=== PATIENT | female | born 1950 | race Caucasian/White ===

== ENCOUNTER → 2017-07-27 | Day surgery (SDC) | payer OTHER ==
--- NOTE | 2017-07-28 14:47 | PATH ---
Surgical Pathology Report Patient Name: KJ CABRERA [facility]. Rec. #: [id number] /Age/Gender: 1950 (Age: 67) / F Account: [id number] Location: [facility]OLOGY [facility] Taken: 07/27/2017 Received: 07/27/2017 Reported: 07/28/2017 Physicians: Tonia Montero M.D. Dyan Sosa M.D. Specimen(s) Received LEFT BREAST 6:00 US-GUIDED CORE BIOPSY Clinical History Palpable mass left breast 6:00 Ultrasound findings: Highly suspicious/malignant Final Diagnosis Breast, left, 6:00, US-guided core biopsy: Invasive ductal carcinoma, moderately differentiated, measuring at least 7 mm in greatest dimension in this material. Results of ER and FL studies performed at [facility] are as follows: ER (clone [id number] mouse monoclonal antibody by [employer]): 100 % nuclear staining with strong intensity (Positive). FL (clone16 mouse monoclonal antibody by [employer]): ~5 % nuclear staining with moderate intensity (Positive). Results of Her2 and Ki67 studies will be reported separately in an addendum. Positive and negative controls (internal if applicable) show appropriate results. Formalin fixation and cold ischemic times are within current ASCO/CAP recommendations for ER, FL and Her2 testing. Electronically Signed Maria Ines De La Cruz M.D. Addendum Reported: 07/30/2017 Addendum Diagnosis Results of Her2 (IHC) & Ki-67 studies performed at [place], [place] ([id number]) are as follows: Her2 IHC (EP3 from [employer], formerly known as [id number], using Chiang Polymer Refine detection kit): 0 (Negative). Ki-67: ~10% (Low proliferative index). Positive and negative controls (internal if applicable) show appropriate results. Maria Ines De La Cruz M.D. Gross Description Received in formalin, labeled "left breast," are 5 anna-yellow, cylindrical portions of fibroadipose tissue ranging from 0.3-0.8 cm. in length and averaging 0.1 cm. in diameter. The specimen is submitted in toto in one cassette. Time to formalin fixation: < 1 minute Total formalin fixation time: Approximately 9 hours. /07/27/2017/2017
== END | disposition home or self-care (01) ==
LOC: JRADUS-SUR 07:51
PROVIDERS: ATTEND Obstetrics & Gynecology
PROC: 0HBU3ZX Excision of Left Breast, Percutaneous Approach, Diagnostic (ICD-10-PCS; principal; 2017-07-27)
DX: C50.912 Malignant neoplasm of unspecified site of left female breast (principal)
CPT/HCPCS: 19083; 87899; 88305-TC; 88342-TC; A4648; G0206-TC

== ENCOUNTER 2017-09-07 12:38 | Day surgery (SDC) | payer OTHER ==
[2017-08-31 09:40] VITALS: BMI 22.1
--- NOTE | 2017-09-01 10:49 | HP ---
Admitting History and Physical - Primary Care Physician PCP: Jeimy Barrow - Admission Chief Complaint: Left breast cancer History of Present Illness: 67 year old postmenapausal female who felt a left breast mass 07/2017. She also reported 13 pound weight loss during pastv6 mos. 06/2017 mammogram showed 1.2 cm mass left breast 6:00 which was confirmed by US. left breast US core bx at 6:00 06/2017 showed invasive ductal carcinoma . Breast MRI 07/2017 showed right breast negative and left breast newly diagnosed breast cancer 1.8 cm at 5: 00. History Source: Patient Limitations to Obtaining History: No Limitations - Past Medical History Cardiovascular: Yes: HTN, Hyperlipdemia Endocrine: Yes: Hyperthyroidism - Smoking History Smoking history: Former smoker Have you smoked in the past 12 months: No Aproximately how many cigarettes per day: 0 If you are a former smoker, when did you quit?: 1985 - Alcohol/Substance Use Hx Alcohol Use: No Home Medications - Allergies Allergies/Adverse Reactions: Allergies Allergy/AdvReac Type Severity Reaction Status Date / Time Sulfa (Sulfonamide Allergy Swelling Verified 03/11/15 13:23 Antibiotics) - Home Medications Home Medications: Ambulatory Orders Levothyroxine [Synthroid -] 75 mcg PO DAILY #0 tablet 08/23/13 Metoprolol Succinate [Toprol XL -] 50 mg PO DAILY #0 tab.sr.24h 08/23/13 Lisinopril [Prinivil] 10 mg PO DAILY 05/22/15 Aspirin [Aspirin EC] 81 mg PO DAILY 05/23/15 Lansoprazole [Prevacid -] 15 mg PO DAILY 05/23/15 Simvastatin [Zocor -] 10 mg PO HS 05/23/15 Family Disease History - Family Disease History Family Disease History: CA: Mother (breast 42 ), Brother (prostate ca 58 living) Other Family History: pat cousin CRC 40 Physical Examination Constitutional: Yes: Well Nourished Breast(s): Yes: Other (Right breast negative left breast palpable 1.5 cm irregular firm mass at 6:00 imfrmamary fold no palpable adenopathy bilaterally) Problem List - Problems (1) Breast cancer, left breast Code(s): C50.912 - MALIGNANT NEOPLASM OF UNSPECIFIED SITE OF LEFT FEMALE BREAST Qualifiers: Breast location: overlapping sites of breast Patient sex: female Assessment/Plan left breast wide excision , lymphoscintogram, sentenel node biopsy possible axillary node dissection, reconstruction with Dr Mckenna
[2017-09-07] MEDS ORDERED: ISOSULFAN BLUE 10 MG/ML VIAL SQ ONE (14:41)
[2017-09-07] MEDS ORDERED: MIDAZOLAM HCL 2 MG/2 ML SINGLE DOSE VIAL ONE (14:41)
[2017-09-07] MEDS ORDERED: LIDOCAINE HCL 1%, 10 MG/ML (20ML VIAL) ONE (14:42)
[2017-09-07] MEDS ORDERED: fentaNYL CITRATE 250 MCG/5 ML VIAL ONE (14:42)
[2017-09-07] MEDS ORDERED: BUPIVACAINE HCL/PF 2.5 MG/ML - 30 ML VIAL IJ ONE (14:42)
[2017-09-07] MEDS ORDERED: SODIUM CHLORIDE 0.9% P/F 10 ML VIAL IJ ONE (14:53)
[2017-09-07] MEDS ORDERED: ceFAZolin SODIUM 1 GM VIAL ONE (14:53)
[2017-09-07] MEDS ORDERED: DEXAMETHASONE SOD PHOSPHATE 4 MG/1 ML VIAL ONE (14:53)
[2017-09-07] MEDS ORDERED: ONDANSETRON 4 MG/2 ML VIAL ONE (14:54)
[2017-09-07] MEDS ORDERED: PROPOFOL 20 ML ONE (14:55)
[2017-09-07] MEDS ORDERED: ROCURONIUM BROMIDE 50 MG/5 ML VIAL ONE (14:56)
[2017-09-07] MEDS ORDERED: LIDOCAINE HCL 2% JELLY (5 ML/TUBE) ONE (15:01)
[2017-09-07] MEDS ORDERED: KETOROLAC TROMETHAMINE 30 MG/1 ML VIAL IVPUSH PRN (16:23)
[2017-09-07] MEDS ORDERED: DEXTROSE 5%-0.45% SALINE 1,000 ML IV SCH (16:30)
[2017-09-07] MEDS: ONDANSETRON 4 MG/2 ML VIAL IVPUSH PRN (18:10)
--- NOTE | 2017-09-07 18:24 | OPR ---
right breast reduction Left reconstruction of partial mastectomy with local tissue flaps Closure of left axillary wound No assist GETA Transferred to recovery with out complication.
[2017-09-07] MEDS: CEFAZOLIN 1 GM PUSH 1 GM/10 ML DISP.SYRIN IVPUSH SCH (21:35)
[2017-09-07] MEDS: oxyCODONE HCL 5 MG TABLET PO PRN (21:38)
[2017-09-07] MEDS ORDERED: ATORVASTATIN CA 10 MG TABLET (FP) PO SCH (22:00)
[2017-09-08] MEDS: CEFAZOLIN 1 GM PUSH 1 GM/10 ML DISP.SYRIN IVPUSH SCH ×2 (02:42→09:24)
[2017-09-08] MEDS: oxyCODONE HCL 5 MG TABLET PO PRN ×2 (02:43→09:25)
[2017-09-08 06:11] VITALS: BP 103/64; PULSE 79; TEMP 97.7
[2017-09-08] MEDS ORDERED: LEVOTHYROXINE NA 75 MCG TABLET (FP) PO SCH (07:00)
--- NOTE | 2017-09-08 09:04 | PN ---
Progress Note, Physician Chief Complaint: Left breast cancer S/P left wide excision with reconstruction and reduction on right History of Present Illness: patient is eating OOB and pain controlled with oxycodone. ready for discharge - Current Medication List Current Medications: Active Medications Atorvastatin Calcium (Lipitor -) 10 mg PO HS [facility] Last Admin: 09/07/17 21:37 Dose: 10 mg Dextrose/Sodium Chloride (D5-1/2ns -) 1,000 mls @ 100 mls/hr IV ASDIR YEIMY Cefazolin Sodium (Ancef -) 1 gm in 10 mls @ 100 mls/hr IVPUSH Q6H-IV YEIMY Stop: 09/13/17 20:59 Last Admin: 09/08/17 02:42 Dose: 100 mls/hr Ketorolac Tromethamine (Toradol Injection -) 30 mg IVPUSH ONCE PRN PRN Reason: PAIN Stop: 09/12/17 16:22 Levothyroxine Sodium (Synthroid -) 75 mcg PO DAILY@0700 [facility] Last Admin: 09/08/17 06:18 Dose: 75 mcg Lisinopril (Prinivil) 10 mg PO DAILY [facility] Metoprolol Succinate (Toprol Xl -) 50 mg PO DAILY [facility] Ondansetron HCl (Zofran Injection) 4 mg IVPUSH Q6H PRN PRN Reason: NAUSEA AND/OR VOMITING Last Admin: 09/07/17 18:10 Dose: 4 mg Oxycodone HCl (Roxicodone -) 5 mg PO Q4H PRN PRN Reason: PAIN Last Admin: 09/08/17 02:43 Dose: 5 mg Pantoprazole Sodium (Protonix -) 20 mg PO DAILY [facility] - Objective Vital Signs: Vital Signs Temperature 97.7 F 09/08/17 06:10 Pulse Rate 79 09/08/17 06:10 Respiratory Rate 18 09/08/17 06:10 Blood Pressure 103/64 09/08/17 06:10 O2 Sat by Pulse Oximetry (%) 100 09/07/17 22:34 Constitutional: Yes: No Distress Breast(s): Yes: Other (Viable flaps bilaterally incision intact with steristrips , annette drains functioning) Problem List - Problems (1) Breast cancer, left breast Code(s): C50.912 - MALIGNANT NEOPLASM OF UNSPECIFIED SITE OF LEFT FEMALE BREAST Qualifiers: Breast location: overlapping sites of breast Patient sex: female Assessment/Plan ready for discharge today no shower follow up in one week with Dr Barrow and Dr Mckenna
[2017-09-08] MEDS ORDERED: METOPROLOL SUCCINATE 50 MG TAB.SR.24H (FP) PO SCH (10:00)
[2017-09-08] MEDS ORDERED: LISINOPRIL 10 MG TABLET (FP) PO SCH (10:00)
[2017-09-08] MEDS ORDERED: PANTOPRAZOLE 20 MG TABLET (FP) PO SCH (10:00)
--- NOTE | 2017-09-08 11:07 | PN ---
Progress Note (short form) - Note Progress Note: Post op day#1.S/p left breast wide excision with sentinel LN biopsy L breast reconstruction and R breast reduction under Ga uneventful.Patient stable and has pain score of 3-4/10 for which she is on medication.No any anesthesia related problem.Patient Dc from the anesthesia care,
--- NOTE | 2017-09-08 11:58 | OP ---
DATE OF OPERATION: 09/07/2017 PREOPERATIVE DIAGNOSIS: Left breast cancer. POSTOPERATIVE DIAGNOSIS: Left breast cancer. PROCEDURE: Left partial mastectomy and sentinel node biopsy. SURGEONS: Jeimy Barrow MD and Eugene Mckenna MD ANESTHESIA: General. ANESTHESIOLOGIST: SPECIMENS: 1. [place] node. 2. Partial mastectomy. 3. Superior margin. DRAINS: Two number 10 JPs. ESTIMATED BLOOD LOSS: 50 mL INDICATION FOR PROCEDURE: The patient is a 67-year-old woman who presented with a palpable left breast mass at 6 o'clock at the inframammary crease. Diagnostic imaging was suspicious, and ultrasound-guided biopsy showed an ER/NV positive HER2 negative invasive ductal cancer. Genetic testing which was negative. After discussion of the surgical options, the best approach was felt to be a reduction incision because the mass was at the inframammary crease and there were overlying skin changes which had to be removed. The decision was also made to have a reduction on the right side to allow for better cosmetic matching. DESCRIPTION OF PROCEDURE: The patient was taken to Nuclear Medicine where she underwent lymphoscintigraphy. She was then taken to the the [facility] area where informed consent was obtained. The left breast was identified with a marker. The planned incisions were drawn with a marker on the chest wall by Dr. Mckenna. The patient was taken to the operating room and placed on the operating table in the supine position. She received antibiotics prior to surgery. Sequential compression devices were placed on both legs. She was intubated. The chest and axilla were prepped and draped in the usual fashion. The left breast was injected with isosulfan blue for the sentinel node procedure. The breast was massaged for 5 minutes. Examination of the left breast showed a palpable mass at 6 o'clock at the inframammary crease. A timeout was performed. The sentinel node procedure was performed by identifying an area of high counts in the axilla. An incision was made in the axillary crease. Dissection was then continued with electrocautery until the axillary fat was exposed. Dissection in the area of high counts revealed a blue node which was dissected free from surrounding axillary fat. There appeared to be 2 nodes in the specimen. The specimen was removed and placed in formalin. Examination of the axilla showed no other evidence of high counts. The partial mastectomy was then performed. An incision in the left breast was made with a scalpel using the markings placed by Dr. Mckenna. The incision was deepened using electrocautery. The dissection continued down to the chest wall. The mass and the breast tissue were then removed along with the pectoralis major fascia It was labeled with a silk suture with a long lateral stitch and a short superior stitch. It was placed in formalin after being weighed. It was then sent to Pathology for further evaluation. Additional tissue from the superior margin was removed and labeled with a stitch at the biopsy cavity side. The reconstruction will be dictated by Dr. Mckenna. At the end of the procedure, one GREGORY drain was placed on each side. They were secured using 3-0 silk suture. The patient was awakened. A sterile dressing was placed after the wounds were cleaned. A surgical bra was then placed. The patient was taken to the recovery area in satisfactory condition. At the end of the procedure, all sponge and instrument counts were correct. Dyan [id number] MTDD
[2017-09-08] MEDS: ONDANSETRON 4 MG/2 ML VIAL IVPUSH PRN (13:56)
--- NOTE | 2017-09-08 14:12 | PN ---
Progress Note (short form) - Note Progress Note: All tissue viable. GREGORY thin and functioning. OK for discharge home . F/U one week
[2017-09-08] MEDS ORDERED: CEFAZOLIN 1 GM/D5W 1 GM/50 ML BAG IVPB SCH (15:00)
--- NOTE | 2017-09-09 14:26 | OP ---
DATE OF OPERATION: 09/07/2017 TITLE OF PROCEDURE: 1. Left breast reconstruction of partial mastectomy with local rearrangement of parenchymal and skin flaps for breast reconstruction. 2. Right-sided balancing breast reduction. 3. Complex, 4-cm closure of left axillary wound. ATTENDING SURGEON: Eugene Mckenna MD The operative procedures in combination with Dr. Jeimy Barrow who performed a left partial mastectomy, that portion of the procedure to be dictated separately by Dr. Barrow. The patient is marked in the holding area. Proposed site of nipples is 21 cm from the sternal notch bilaterally. She is marked awake and aware of all incisions and resulting scars. She is counseled on all risks, benefits, and alternatives as well as limitations to the procedure. She understands and agrees to proceed. DESCRIPTION OF PROCEDURE: Patient is brought to the operating room and placed in a supine position. A gram of Ancef is given preoperatively. Sequential compression stockings and STEVEN hose are applied bilaterally. She is prepped and draped in standard surgical fashion. After which, a timeout is called. Patient, procedure, side, and site are verified. The left breast is addressed first by Dr. Jeimy Barrow. A 6 o'clock inferior-pole lumpectomy is performed including skin. This is done through markings that I had previously made in collaboration with Dr. Barrow preoperatively. As this was done, my attention was directed to the contralateral right breast where a superior pedicle was patterned. The skin between the nipple-areolar complex, which is marked with a 40-mm cookie cutter and the reduction pattern, is de-epithelialized. Superior pedicle is elevated and developed, maintaining blood supply from the pectoralis major perforating blood vessels. It is mobilized into the superior keyhole pattern. Skin flaps are then elevated medially, laterally, and excision of tissue is performed inferiorly. The weight of resected tissue is 103 grams. Hemostasis was meticulously achieved, and a staple tailor tacking is performed. The left side is then assessed after completion of the partial mastectomy. The mastectomy specimen is weighed at 102 g, equal to the resection weight of the contralateral side. Hemostasis is meticulously achieved. The reconstruction is then performed with maintenance of the nipple-areolar complex on a superiorly-based pedicle. This tissue is de-epithelialized through the keyhole pattern. Medial and lateral skin flaps are then developed and mobilized into the mastectomy defect. Rearrangement of the tissues is then performed, mobilizing medial and lateral skin and parenchymal breast tissue which is secured to itself with a series of interrupted, buried, 2-0 Vicryl suture. The nipple-areola is inset into the keyhole pattern superiorly with a series of interrupted, buried, deep dermal, 3-0 Monocryl suture. Skin is tailor tacked. The patient is brought to a seated upright position where symmetry of size and shape is deemed to be good. Two size 10 flat GREGORY drains are brought out through the lateral extent of both transverse incisions, secured with a 2-0 silk drain suture. The inverted T points are closed with a series of interrupted, half-buried, horizontally mattress, 2-0 nylon suture. The vertical and horizontal limbs are closed with a series of interrupted, buried, deep dermal, 3-0 Monocryl suture, followed by a running subcuticular 3-0 Monocryl suture. The nipple-areola is inset with a series of interrupted, buried, deep dermal, 4-0 Monocryl suture, followed by a running subcuticular 4-0 Monocryl suture. All tissues are pink and viable at the end of the procedure. The axilla on the left is then addressed. Deep axillary fascial closure is performed with 3-0 Monocryl suture, followed by a series of interrupted, buried, deep dermal, 3-0 Monocryl suture, followed by a running subcuticular 3-0 Monocryl suture. This is a 4-cm incision which is separately closed in a complex, layered fashion. The incisions are all dressed with Steri-Strips, 4 x 4 gauze, and a surgical bra. Patient is awoken from anesthesia, having tolerated the procedure well, transferred to recovery without complication. Dyan [id number]
--- NOTE | 2017-09-10 10:35 | PATH ---
Surgical Pathology Report Patient Name: KJ CABRERA [facility]. Rec. #: [id number] /Age/Gender: 1950 (Age: 67) / F Account: [id number] Location: [facility] AMBULATORY Taken: 09/07/2017 Received: 09/07/2017 Reported: 09/10/2017 Physicians: Jeimy Barrow M.D. Specimen(s) Received A: RIGHT BREAST SKIN B: LEFT AXILLARY SENTINEL NODE C: RIGHT BREAST TISSUE D: LEFT BREAST WIDE EXCISION E: LEFT SUPERIOR MARGIN F: LEFT BREAST SKIN Clinical History None given Final Diagnosis A. SKIN, RIGHT BREAST, EXCISION: UNREMARKABLE SKIN. B. LYMPH NODE, LEFT AXILLARY SENTINEL NODE, EXCISION: ONE BENIGN LYMPH NODE (0/1) BY STANDARD HEMATOXYLIN AND EOSIN STAIN (MULTIPLE LEVELS EXAMINED). C. RIGHT BREAST, MAMMOPLASTY: BENIGN BREAST TISSUE WITH FIBROADENOMATOUS CHANGES, AND FIBROCYSTIC CHANGES WITH STROMAL FIBROSIS AND DUCTAL DILATATION. D. LEFT BREAST, WIDE EXCISION: INVASIVE DUCTAL CARCINOMA, RULA GRADE 2 OF 3 (TUBULE SCORE 3 OF 3, NUCLEAR GRADE 2 OF 3, MITOTIC SCORE 2 OF 3, TOTAL 7 OF 9), MEASURING 1.5 CM IN GREATEST DIMENSION. NO DUCTAL CARCINOMA IN SITU IDENTIFIED. CARCINOMA FOCALLY INVADES INTO OVERLYING DERMIS, WITH NO ULCERATION OF SKIN OR DERMAL LYMPHATIC INVASION IDENTIFIED. FOCAL AREA SUSPICIOUS FOR LYMPH-VASCULAR INVASION PRESENT IN BREAST. CHANGES CONSISTENT WITH PRIOR BIOPSY SITE PRESENT. INVASIVE CARCINOMA IS 0.4 CM FROM THE INFERIOR MARGIN, AND ALL MARGINS OF EXCISION ARE FREE OF CARCINOMA. REMAINING BREAST TISSUE WITH FIBROCYSTIC CHANGES INCLUDING STROMAL FIBROSIS AND DUCTAL DILATATION. E. LEFT BREAST, SUPERIOR MARGIN, EXCISION: BENIGN BREAST TISSUE WITH FIBROCYSTIC CHANGES INCLUDING STROMAL FIBROSIS AND DUCTAL DILATATION. F. SKIN, LEFT BREAST, EXCISION: UNREMARKABLE SKIN. Comment: Also see prior biopsy [id number]. Comments Breast Invasive Carcinoma: Surgical Pathology Cancer Case Summary Based on AJCC/UICC TNM, 7th edition Procedure _X__ Excision without image-guided localization Lymph Node Sampling (select all that apply) (required only if lymph nodes are present in the specimen) _X__ [place] lymph node(s) Specimen Laterality _X__ Left Tumor Size: Size of Largest Invasive Carcinoma Greatest dimension of largest focus of invasion over 1 mm: 15 mm Tumor Focality _X__ Single focus of invasive carcinoma Macroscopic and Microscopic Extent of Tumor Skin _X__ Invasive carcinoma directly invades into the dermis or epidermis without skin ulceration Nipple _X__ Not applicable (excisions less than total mastectomy) Ductal Carcinoma In Situ (DCIS) _X__ No DCIS is present Histologic Type of Invasive Carcinoma : _X__ Invasive carcinoma of no special type (ductal, not otherwise specified) Histologic Grade: (Rula Histologic Score) Tubular Differentiation _X__ Score 3 Nuclear Pleomorphism _X__ Score 2 Mitotic Rate _X__ Score 2 Overall Grade _X__ Grade 2: scores of 6 or 7 (moderately differentiated) Margins _X__ Margins uninvolved by invasive carcinoma (required only if residual invasive carcinoma is present in specimen) Distance from closest margin: 4 mm Specify margin: INFERIOR Lymph-Vascular Invasion _X__ Indeterminate Lymph Nodes Total number of lymph nodes examined (sentinel and nonsentinel): 1 Number of sentinel lymph nodes examined: 1 Number of lymph nodes with macrometastases ( > 2 mm): Number of lymph nodes with micrometastases (>0.2 mm to 2 mm and/or >200cells):0 Number of lymph nodes with isolated tumor cells (=0.2 mm and =200 cells): 0 Extranodal Extension _X__ Not applicable Pathologic Staging (pTNM) Primary Tumor (Invasive Carcinoma): pT1c Regional Lymph Nodes (pN): pN0(sn) Biomarker Studies Results of ER and MT studies performed on a prior biopsy ([id number]) at [facility] are as follows: ER (clone [id number] mouse monoclonal antibody by [employer]): 100% nuclear staining with strong intensity (Positive). MT (clone16 mouse monoclonal antibody by [employer]) : ~5% nuclear staining with moderate intensity (Positive). Results of Her2 (IHC) & Ki-67 studies performed on a prior biopsy ([id number]) at [place], [place] ( [id number]) are as follows: Her2 IHC (EP3 from [employer], formerly known as [id number], using [employer] Polymer Refine detection kit): 0 Negative Ki67: ~10% (Low proliferative index) Positive and negative controls (internal if applicable) show appropriate results. Formalin fixation and cold ischemic times are within current ASCO/CAP recommendations for ER, MT and Her2 testing. Electronically Signed Zev Benavidez M.D. Gross Description A. Received in formalin labeled "right breast skin," are 2 anna skin fragments measuring 4.5 x 1.5 x 0.2 cm and 9.0 x 3.0 x 0.2 cm. The epidermal surfaces are unremarkable. Lamination Builder sections are submitted in one cassette. B. Received in formalin labeled "left axillary sentinel node," is a 2.7 x 1.1 x 0.9 cm anna, irregular lymph node with attached fat. The specimen is trisected and entirely submitted in 2 cassettes. C. Received in formalin labeled "right breast tissue," is a 96 g, 12.5 x 6.5 x 2.3 cm aggregate of multiple irregular portions of fibroadipose tissue and anna, unremarkable skin. Sectioning reveals multifocal dense white fibrous tissue. No definitive masses are identified. Lamination Builder sections are submitted in 4 cassettes. D. Received in formalin, labeled "left breast wide excision," is an 11.5 x 6.0 x 3.3 cm. anna-yellow, irregular, portion of fibroadipose tissue. There is no needle localization wire present. There is a short suture marking the superior aspect and a long suture marking the lateral aspect, per the surgeon. The anterior surface displays an 11.0 x 5.0 cm anna, triangular, unremarkable portion of skin. There is no nipple present. The specimen is inked as follows: Superior blue; inferior green; lateral red; medial yellow; deep black. The specimen is serially sectioned from medial to lateral. Sectioning reveals a 1.3 x 1.2 x 1.1 cm anna, indurated mass 0.2 cm from the skin. The mass is focally 0.3 cm from the inferior margin and 1.2 cm from the deep margin. The remaining margins appear clear of the mass. The remaining breast parenchyma displays foci of white fibrous tissue. Lamination Builder sections are submitted in 7 cassettes as follows: 1-2-one full face section of mass each (each with skin and inferior margin); 3-4-deep margin; 5-superior margin; 6-medial margin; 7-lateral margin. Time to formalin fixation: Less than one minute Total formalin fixation time: Approximately 26 hours. E. Received in formalin labeled "left superior margin," is a 2.2 x 1.8 x 0.5 cm irregular portion of fibroadipose tissue with a suture marking the biopsy cavity side, per the surgeon. The new margin is inked green and the specimen is serially sectioned. The specimen is entirely submitted in 2 cassettes. F. Received in formalin labeled "left breast skin," are 3 anna, unoriented skin fragments ranging from 5.5 x 0.2 x 0.1 cm to 5.5 x 2.6 x 0.2 cm. The epidermal surfaces are unremarkable. Lamination Builder sections are submitted in one cassette. 09/08/2017 [facility]09/08/2017
== END 2017-09-08 14:32 | disposition home or self-care (01) ==
LOC: FASU 12:38 → FM/S 20:26 → FASU 09-08 14:32
PROVIDERS: ATTEND Surgery
PROC: 0HBU0ZZ Excision of Left Breast, Open Approach (ICD-10-PCS; principal; 2017-09-07 15:28)
PROC: 0HRU07Z Replacement of Left Breast with Autologous Tissue Substitute, Open Approach (ICD-10-PCS; 2017-09-07 15:28)
PROC: 0H0T0ZZ Alteration of Right Breast, Open Approach (ICD-10-PCS; 2017-09-07 15:28)
PROC: 0JQ60ZZ Repair Chest Subcutaneous Tissue and Fascia, Open Approach (ICD-10-PCS; 2017-09-07 15:28)
DX: C50.812 Malignant neoplasm of overlapping sites of left female breast (principal); N60.32 Fibrosclerosis of left breast; N64.89 Other specified disorders of breast; I10 Essential (primary) hypertension; E78.5 Hyperlipidemia, unspecified; E05.90 Thyrotoxicosis, unspecified without thyrotoxic crisis or storm
CPT/HCPCS: 78195-TC; 88302-TC; 88305-TC; 88307-TC; 94760; A9541

== ENCOUNTER 2018-01-05 05:56 | Day surgery (SDC) | payer OTHER ==
[2017-12-29 13:13] VITALS: BMI 21.7
[2018-01-05] MEDS ORDERED: LIDOCAINE HCL 2% (20ML MULTI-DOSE VIAL) NR ONE (07:05)
[2018-01-05] MEDS ORDERED: MIDAZOLAM HCL 2 MG/2 ML SINGLE DOSE VIAL ONE (07:26)
[2018-01-05] MEDS ORDERED: PROPOFOL 20 ML ONE ×2 (07:34)
[2018-01-05] MEDS ORDERED: SUCCINYLCHOLINE CHLORIDE 200 MG/10 ML VIAL ONE (07:34)
[2018-01-05] MEDS ORDERED: DEXAMETHASONE SOD PHOSPHATE 4 MG/1 ML VIAL ONE (07:36)
[2018-01-05] MEDS ORDERED: ONDANSETRON 4 MG/2 ML VIAL ONE (07:36)
[2018-01-05 08:34] VITALS: PULSE 66; TEMP 97.7
[2018-01-05 09:05] VITALS: BP 111/76
--- NOTE | 2018-01-05 09:22 | OP ---
DATE OF OPERATION: 01/05/2018 PREOPERATIVE DIAGNOSIS: Left long trigger-finger. POSTOPERATIVE DIAGNOSIS: Left long trigger-finger. OPERATIVE PROCEDURE: Left long trigger-finger release. SURGEON: Joseph Child MD ANESTHESIA: Local with sedation. COMPLICATIONS: None. ESTIMATED BLOOD LOSS: Minimal. INDICATIONS FOR PROCEDURE: The patient is a 67-year-old female with the above findings. She was indicated for operative treatment. The risks, benefits, and alternatives were again discussed with the patient at length. Proper informed consent was obtained. DESCRIPTION OF PROCEDURE: After proper identification of the patient and the correct operative site, the patient was brought to the operating room and placed supine on the operating room table. All bony prominences were well padded. Sedation was given by the anesthesiologist; local anesthesia was given with 2% lidocaine. Left upper extremity was prepped and draped in the usual sterile fashion. A well-padded tourniquet was placed with a sterile prep. Esmarch bandage used to exsanguinate the left upper extremity. A tourniquet was inflated to 250 mmHg. A longitudinal incision was made over the A1 salvatore of the long finger. Incision was taken sharply through the skin with blunt and sharp dissection through subcutaneous tissues. A1 salvatore was divided. Patient was asked to flex and extend the finger, and no further triggering was noted. Wound was irrigated with saline and repaired with a 5-0 nylon suture. Sterile dressings were applied. Patient was brought to the recovery room in stable condition. She tolerated the procedure well. JOSEPH CHILD M.D. [id number]
--- NOTE | 2018-01-07 16:11 | PN ---
Progress Note (short form) - Note Progress Note: completede radiation therapy 12/28 to get baseline labs and start anastrozole 1mg daily to take oscal with d
== END 2018-01-05 08:50 | disposition home or self-care (01) ==
LOC: FASU 05:56
PROVIDERS: ATTEND Orthopaedic Surgery Hand Surgery
PROC: 0LN80ZZ Release Left Hand Tendon, Open Approach (ICD-10-PCS; principal; 2018-01-05 07:30)
DX: M65.332 Trigger finger, left middle finger (principal)

== ENCOUNTER 2018-03-01 12:18 | Observation (INO) | payer OTHER ==
--- NOTE | 2018-03-01 13:02 | PDOC ---
History of Present Illness - General Chief Complaint: Chronic pain Stated Complaint: PAIN (PCP SENT) Time Seen by Provider: 03/01/18 13:02 - History of Present Illness Initial Comments: 03/01/18 14:33 Ms. Welch is a 67 yo female w/ pmh of HTN, HLD, ischemic colitis, diverticulitis, breast cancer s/p treatment with radiation placed on anastrazole since January 27 who presents w/ complains of generalized proximal muscle weakness with pain (particularly in shoulders, L>R) that is worse in the mornings and gets better as the day goes on. She has known elevated ESR per her oncologist (Dr. Alvarado). Ms. Welch reports these symptoms started after she began treatment with the anastrazole. Patient has since stopped taking this medication for the past week but reports continuation of shoulder, back, hip pain bilaterally. The patient denies chest pain, shortness of breath, headache and dizziness. Denies fever, chills, nausea, vomit, diarrhea and constipation. Denies dysuria, frequency, urgency and hematuria. Allergies: Sulfa drugs Past History - Past Medical History Allergies/Adverse Reactions: Allergies Allergy/AdvReac Type Severity Reaction Status Date / Time Sulfa (Sulfonamide Allergy Swelling Verified 12/29/17 13:04 Antibiotics) Home Medications: Ambulatory Orders Levothyroxine [Synthroid -] 75 mcg PO DAILY #0 tablet 08/23/13 Metoprolol Succinate [Toprol XL -] 50 mg PO DAILY #0 tab.sr.24h 08/23/13 Lisinopril [Prinivil] 10 mg PO DAILY 05/22/15 Lansoprazole [Prevacid -] 15 mg PO DAILY 05/23/15 Simvastatin [Zocor -] 10 mg PO HS 05/23/15 Aspirin [ASA -] 81 mg PO DAILY 12/29/17 Calcium Carbonate [Calcium] 500 mg PO BID 12/29/17 Naproxen 500 mg PO BID PRN #20 tablet 03/01/18 Tramadol HCl [Ultram] 50 mg PO TID PRN #15 tablet MDD 3 tabs 03/01/18 Anemia: No Asthma: No Cancer: Yes (L breast) Cardiac Disorders: No CVA: No COPD: No CHF: No Dementia: No Diabetes: No GI Disorders: Yes (ISCHEMIC COLITIS) Disorders: No HTN: Yes Hypercholesterolemia: Yes Liver Disease: No Seizures: No Thyroid Disease: Yes - Surgical History Abdominal Surgery: No Appendectomy: No Cardiac Surgery: No Cholecystectomy: Yes Lung Surgery: No Neurologic Surgery: No Orthopedic Surgery: No - Immunization History Immunization Up to Date: Yes - Suicide/Smoking/Psychosocial Hx Smoking Status: Yes Smoking History: Former smoker Have you smoked in the past 12 months: No Number of Cigarettes Smoked Daily: 0 If you are a former smoker, when did you quit?: 1986 Cigars Per Day: 0 Information on smoking cessation initiated: No Hx Alcohol Use: Yes (rare) Drug/Substance Use Hx: No Substance Use Type: Alcohol Hx Substance Use Treatment: No Review of Systems - Review of Systems Comments:: 03/01/18 14:51 GENERAL/CONSTITUTIONAL: No fever or chills. No weakness. HEAD, EYES, EARS, NOSE AND THROAT: No change in vision. No ear pain or discharge. No sore throat. CARDIOVASCULAR: No chest pain or shortness of breath RESPIRATORY: No cough, wheezing, or hemoptysis. GASTROINTESTINAL: No nausea, vomiting, diarrhea or constipation. GENITOURINARY: No dysuria, frequency, or change in urination. MUSCULOSKELETAL: +Generalized body aches as described. Particular weakness / pain on left shoulder. SKIN: No rash NEUROLOGIC: No headache, vertigo, loss of consciousness, or change in strength/ sensation. ENDOCRINE: No increased thirst. No abnormal weight change HEMATOLOGIC/LYMPHATIC: No anemia, easy bleeding, or history of blood clots. ALLERGIC/IMMUNOLOGIC: No hives or skin allergy. *Physical Exam - Vital Signs Last Vital Signs Temp Pulse Resp BP Pulse Ox 98.4 F 94 H 18 146/82 98 03/01/18 12:46 03/01/18 12:46 03/01/18 12:46 03/01/18 12:46 03/01/18 12:46 - Physical Exam Comments: 03/01/18 14:51 GENERAL: Awake, alert, and fully oriented, in no acute distress HEAD: No signs of trauma, normocephalic, atraumatic EYES: PERRLA, EOMI, sclera anicteric, conjunctiva clear ENT: Auricles normal inspection, hearing grossly normal, nares patent, oropharynx clear without exudates. Moist mucosa NECK: Normal ROM, supple, no lymphadenopathy, JVD, or masses LUNGS: No distress, speaks full sentences, clear to auscultation bilaterally HEART: Regular rate and rhythm, normal S1 and S2, no murmurs, rubs or gallops, peripheral pulses normal and equal bilaterally. ABDOMEN: Soft, nontender, normoactive bowel sounds. No guarding, no rebound. No masses EXTREMITIES: Normal inspection, Normal range of motion, no edema. No clubbing or cyanosis. NEUROLOGICAL: Cranial nerves II through XII grossly intact. Normal speech, normal gait, no focal sensorimotor deficits SKIN: Warm, Dry, normal turgor, no rashes or lesions noted. ED Treatment Course - LABORATORY CBC & Chemistry Diagram: 03/01/18 13:50 03/01/18 13:50 Medical Decision Making - Medical Decision Making 03/01/18 16:26 Ms. Welch is a 67 yo female w/ pmh as described who presents for evaluation of worsening chronic pain/weakness. Patient labs grossly unconcerning however notable for elevated CRP / ESR as below. Shoulder XR for evaluation of primary pain point significant for arthritic changes only. Patient reports improvement of pain after toradol / tramadol. Discussed patient with oncologist who would like patient to follow-up with rheumatology. Discussed with primary (Dr. Munguia) who would like patient admitted for follow-up evaluation. Inpatient team paged for admission. Laboratory Results - last 24 hr 03/01/18 03/01/18 03/01/18 13:50 13:50 13:50 WBC 7.8 RBC 3.95 Hgb 12.1 Hct 36.2 MCV 91.7 MCH 30.5 MCHC 33.3 RDW 13.2 Plt Count 273 D MPV 8.1 Absolute Neuts (auto) 6.2 Neutrophils % 79.3 Lymphocytes % 10.6 Monocytes % 8.3 Eosinophils % 1.2 Basophils % 0.6 Nucleated RBC % 0 ESR 89 H Sodium 141 Potassium 4.4 Chloride 108 H Carbon Dioxide 26 Anion Gap 7 L BUN 18 Creatinine 0.6 Creat Clearance w eGFR > 60 Random Glucose 94 Calcium 9.3 Total Bilirubin 0.3 D AST 28 ALT 32 Alkaline Phosphatase 181 H Creatine Kinase 59 Troponin I < 0.02 C-Reactive Protein 3.6 H Total Protein 7.3 Albumin 3.4 Urine Color Urine Appearance Urine pH Ur Specific [place] Urine Protein Urine Glucose (UA) Urine Ketones Urine Blood Urine Nitrite Urine Bilirubin Urine Urobilinogen Ur Leukocyte Esterase 03/01/18 13:50 WBC RBC Hgb Hct MCV MCH MCHC RDW Plt Count MPV Absolute Neuts (auto) Neutrophils % Lymphocytes % Monocytes % Eosinophils % Basophils % Nucleated RBC % ESR Sodium Potassium Chloride Carbon Dioxide Anion Gap BUN Creatinine Creat Clearance w eGFR Random Glucose Calcium Total Bilirubin AST ALT Alkaline Phosphatase Creatine Kinase Troponin I C-Reactive Protein Total Protein Albumin Urine Color Ltyellow Urine Appearance Clear Urine pH 5.0 Ur Specific [place] 1.023 Urine Protein Negative Urine Glucose (UA) Negative Urine Ketones Negative Urine Blood Negative Urine Nitrite Negative Urine Bilirubin Negative Urine Urobilinogen Negative Ur Leukocyte Esterase Negative *DC/Admit/Observation/Transfer Diagnosis at time of Disposition: Arthritic-like pain Qualifiers: Joint pain location: shoulder Laterality: unspecified laterality Qualified Code (s): M25.519 - Pain in unspecified shoulder - Discharge Dispostion Decision to Admit order: Yes - Prescriptions Prescriptions: Naproxen 500 mg PO BID PRN #20 tablet PRN Reason: Pain Tramadol HCl [Ultram] 50 mg PO TID PRN #15 tablet MDD 3 tabs PRN Reason: Pain - Referrals Referrals: Jacob Munguia MD [Primary Care Provider] - - Patient Instructions Printed Discharge Instructions: DI for Arthritis - Post Discharge Activity
[2018-03-01 14:01] LABS: BASO % 0.6 % (0-2.0); EOS % 1.2 % (0-4.5); HEMATOCRIT 36.2 % (32.4-45.2); HEMOGLOBIN 12.1 GM/dL (10.7-15.3); LYMPH % 10.6 % (8-40); MCH 30.5 pg (25.7-33.7); MCHC 33.3 g/dl (32.0-36.0); MEAN CELL VOLUME 91.7 fl (80-96); MEAN PLT VOLUME 8.1 fl (7.5-11.1); MONO % 8.3 % (3.8-10.2); NEUT % 79.3 % (42.8-82.8); PLATELET COUNT 273 K/MM3 (134-434); RBC 3.95 M/mm3 (3.60-5.2); RDW 13.2 % (11.6-15.6); URINE APPEARANCE CLEAR; URINE BILIRUBIN NEGATIVE (<2.0 mg/dL); URINE BLOOD NEGATIVE (NEGATIVE); URINE COLOR LTYELLOW; URINE GLUCOSE (UA) NEGATIVE (NEGATIVE); URINE KETONE NEGATIVE (NEGATIVE); URINE LEUK ESTERASE NEGATIVE (NEGATIVE); URINE NITRITE NEGATIVE (NEGATIVE); URINE PROTEIN NEGATIVE (NEGATIVE); URINE UROBILINOGEN NEGATIVE mg/dL (0.2-1.0); WHITE BLOOD COUNT 7.8 K/mm3 (4.0-10.0)
[2018-03-01] MEDS ORDERED: KETOROLAC TROMETHAMINE 30 MG/1 ML VIAL IVPUSH ONE (14:17)
[2018-03-01] MEDS ORDERED: traMADol HCL 50 MG TABLET PO ONE (14:17)
[2018-03-01] MEDS ORDERED: traMADol HCL 50 MG TABLET ONE (14:21)
[2018-03-01] MEDS ORDERED: KETOROLAC TROMETHAMINE 30 MG/1 ML VIAL ONE (14:21)
--- NOTE | 2018-03-01 14:21 | PDOC ---
Attending Attestation - Resident Resident Name: RankathjuniorAndreas - ED Attending Attestation I have performed the following: I have examined & evaluated the patient, The case was reviewed & discussed with the resident, I agree w/resident's findings & plan - HPI HPI: 03/01/18 14:17 67y/o F breast ca started on anastrozole for about 2 weeks ago then stopped 1.5 wks ago in the setting of developing new onset polyarthralgia. no trauma, began in her lower back then involved b/l shoulders and hips. worse with initiating movement (morning) then improves slightly. no f/c, no rash, no joint swelling/ warmth. took tylenol without relief, sent here for evaluation by Dr. Alvarado - Physicial Exam PE: 03/01/18 14:19 Afebrile Generally well-appearing eating a lunch tray using both arms FROM all joints, no warmth/swelling/deformity. nvi distally no rash, no LAD - Medical Decision Making 03/01/18 14:20 67-year-old female with relatively new onset polyarthralgia over the last 2 weeks, no fevers or chills, no injuries. Neurovascularly intact throughout, question medication side effect or withdrawal, question other primary rheumatologic process. Check labs including ESR, CRP, Lyme no evidence for infected joints generally well appearing, will discuss dispo with Dr. Avlarado Heart Score/ECG Review #1 ECG reviewed & interpreted by me at: 14:27 General ECG Interpretation: Sinus Rhythm, Normal Rate (81), Normal Intervals ( qtc 415), No acute ischemic changes
[2018-03-01 14:38] LABS: ALBUMIN 3.4 g/dl (3.4-5.0); ANION GAP 7 (8-16); BILIRUBIN,TOTAL 0.3 mg/dL (0.2-1.0); BLOOD UREA NITROGEN 18 mg/dL (7-18); CALCIUM 9.3 mg/dL (8.5-10.1); CHLORIDE 108 mmol/L (98-107); CO2 26 mmol/L (21-32); CREATININE 0.6 mg/dL (0.55-1.02); GLUCOSE,RANDOM 94 mg/dL (74-106); POTASSIUM 4.4 mmol/L (3.5-5.1); SGOT/AST 28 U/L (15-37); SGPT/ALT 32 U/L (12-78); SODIUM 141 mmol/L (136-145); TOT PROT 7.3 g/dl (6.4-8.2)
[2018-03-01 14:40] LABS: ALK PHOS 181 U/L (45-117)
[2018-03-01] MEDS ORDERED: KETOROLAC TROMETHAMINE 15 MG/ML VIAL IVPUSH PRN (17:23)
[2018-03-01] MEDS ORDERED: traMADol HCL 50 MG TABLET PO PRN (17:24)
[2018-03-01] MEDS ORDERED: ACETAMINOPHEN 1000 MG/100 ML VIAL (NON FORMULARY) IVPB PRN (17:24)
--- NOTE | 2018-03-01 17:57 | EKG ---
Test Reason : Blood Pressure : / mmHG Vent. Rate : 081 BPM Atrial Rate : 081 BPM P-R Int : 172 ms QRS Dur : 070 ms QT Int : 358 ms P-R-T Axes : 052 038 053 degrees QTc Int : 415 ms NORMAL SINUS RHYTHM NORMAL ECG Confirmed by MD BEHZAD, KELLEY ([id number]) on 03/01/2018 5:57:15 PM Referred By: Confirmed By:KELLEY WEN MD
--- NOTE | 2018-03-01 18:03 | HP ---
Admitting History and Physical - Primary Care Physician PCP: Jacob Munguia - Admission Chief Complaint: numbness, body aches History of Present Illness: This is a 67 year old female with pmhx HTN, HLD, ischemic colitis, diverticulitis, breast cancer s/p L sided lumpectomy and treatment with radiation placed on anastrazole since January 27. Today she presents with 2 weeks of generalized body aches starting in her low back and feeling tired all the time. Pain then moved to shoulders and hips and now she has no feeling to R later knee. She was told to stop taking anastrazole 1 week ago, to which she has, but the pain is worsening. This morning she was unable to lift her arms above her head to wash her hair. Now, pain improved ROM returned. Denies, sob, cp, abd pain, n/v. The area of her lumpectomy started to hurt but she attributed it to the medication. She has a benign neck tremor started 2 years ago, [place] neurologist work up , no dx. History Source: Patient Limitations to Obtaining History: No Limitations - Past Medical History Cardiovascular: Yes: HTN, Hyperlipdemia Gastrointestinal: Yes: Other (H/O ischemic colitis) Heme/Onc: Yes: Cancer (L breast) Endocrine: Yes: Hyperthyroidism, Hypothyroidism - Past Surgical History Past Surgical History: Yes: , Cholecystectomy Additional Past Surgical History: lumpectomy - Smoking History Smoking history: Former smoker Have you smoked in the past 12 months: No Aproximately how many cigarettes per day: 0 If you are a former smoker, when did you quit?: 1985 - Alcohol/Substance Use Hx Alcohol Use: Yes (rare) History of Substance Use: reports: None - Social History Usual Living Arrangement: Yes: With Spouse ADL: Independent Home Medications - Allergies Allergies/Adverse Reactions: Allergies Allergy/AdvReac Type Severity Reaction Status Date / Time Sulfa (Sulfonamide Allergy Swelling Verified 12/29/17 13:04 Antibiotics) - Home Medications Home Medications: Ambulatory Orders Levothyroxine [Synthroid -] 75 mcg PO DAILY #0 tablet 08/23/13 Metoprolol Succinate [Toprol XL -] 50 mg PO DAILY #0 tab.sr.24h 08/23/13 Lisinopril [Prinivil] 10 mg PO DAILY 05/22/15 Lansoprazole [Prevacid -] 15 mg PO DAILY 05/23/15 Simvastatin [Zocor -] 10 mg PO HS 05/23/15 Aspirin [ASA -] 81 mg PO DAILY 12/29/17 Calcium Carbonate [Calcium] 500 mg PO BID 12/29/17 Naproxen 500 mg PO BID PRN #20 tablet 03/01/18 Tramadol HCl [Ultram] 50 mg PO TID PRN #15 tablet MDD 3 tabs 03/01/18 Family Disease History - Family Disease History Family Disease History: CA: Mother (breast 42 ), Brother (prostate ca 58 living) Review of Systems - Review of Systems Constitutional: reports: Lethargy, Malaise Eyes: reports: No Symptoms HENT: reports: No Symptoms Neck: reports: No Symptoms Cardiovascular: reports: No Symptoms Respiratory: reports: No Symptoms Gastrointestinal: reports: No Symptoms Genitourinary: reports: No Symptoms Musculoskeletal: reports: Back Pain, Joint Pain, Muscle Weakness Integumentary: reports: No Symptoms Neurological: reports: No Symptoms Endocrine: reports: No Symptoms Hematology/Lymphatic: reports: No Symptoms Psychiatric: reports: No Symptoms Physical Examination Vital Signs: Vital Signs Temperature 98.4 F 03/01/18 12:46 Pulse Rate 67 03/01/18 15:58 Respiratory Rate 18 03/01/18 15:58 Blood Pressure 127/72 03/01/18 15:58 O2 Sat by Pulse Oximetry (%) 99 03/01/18 15:58 Constitutional: Yes: Well Nourished Eyes: Yes: Conjunctiva Clear HENT: Yes: Other (+ neck tremor) Neck: Yes: Supple Cardiovascular: Yes: Regular Rate and Rhythm, S1, S2 Respiratory: Yes: Regular, CTA Bilaterally Gastrointestinal: Yes: Normal Bowel Sounds, Soft Musculoskeletal: Yes: Back Pain, Joint Stiffness Extremities: Yes: WNL Edema: No Integumentary: Yes: WNL Neurological: Yes: Alert, Oriented, Cran Nerves II-XII Intact, Tremors, Other ( R lateral knee no sensation local does not radiate, L full sensation) Labs: CBC, BMP 03/01/18 13:50 03/01/18 13:50 Imaging - Results X-ray: Report Reviewed EKG: Report Reviewed Problem List - Problems (1) Arthritic-like pain Code(s): M25.50 - PAIN IN UNSPECIFIED JOINT Qualifiers: Joint pain location: shoulder Laterality: unspecified laterality Qualified Code(s): M25.519 - Pain in unspecified shoulder (2) Breast cancer, left breast Code(s): C50.912 - MALIGNANT NEOPLASM OF UNSPECIFIED SITE OF LEFT FEMALE BREAST Qualifiers: Breast location: overlapping sites of breast Patient sex: female Assessment/Plan Assessment: 67 year old female admitted with generalized body aches, RLE knee numbness Plan: 1. Numbness R lateral knee, generalized body body aches - R/o RA, ? PMR - ESR, CRP elevated - Lyme pending - Neurology, Rheumatology consulted - Pain control prn as ordered 2. HTN - Controlled - Continue lisinopril, toprol xl 3. Hypothyroid - Synthroid 75mcg daily Visit type - Emergency Visit Emergency Visit: Yes Care time: The patient presented to the Emergency Department on the above date and was hospitalized for further evaluation of their emergent condition. - New Patient This patient is new to me today: Yes Date on this admission: 03/01/18 - Critical Care Critical Care patient: No Hospitalist Screening - Colonoscopy Questionnaire Colonoscopy Questionnaire: Colonoscopy Questionnaire - Patient: 50 - 75 years old and never had a screening colonoscopy: Unknown History of colon or rectal polyps, or CA: Unknown History of IBD, Crohn's disease or UC: Unknown History of abdominal radiation therapy as a child: Unknown - Relative: 1 with colon or rectal CA, or polyps at age 60 or younger: Unknown Colon or rectal CA diagnosed at age 45 or younger: Unknown Multiple relatives with colon or rectal CA: Unknown - Outcome: Screening Result: Negative Screen
[2018-03-01] MEDS ORDERED: MAGNESIUM OXIDE 400 MG TABLET (FP) PO ONE (22:00)
[2018-03-01] MEDS: ATORVASTATIN CA 10 MG TABLET (FP) PO SCH (22:00)
[2018-03-01 22:16] VITALS: BMI 22.1
[2018-03-02] MEDS: LEVOTHYROXINE NA 75 MCG TABLET (FP) PO SCH (07:05)
--- NOTE | 2018-03-02 08:36 | PN ---
Progress Note (short form) - Note Progress Note: note from 03/01/2018 Sent from office for debilitating pain in the bilateral UE, LE, back. Pt was completely limited by her iADLs and she stopped going to work. Pt seen and examined in the ER. O/E: Gen: NAD HEENT: NCAT Cor:RRR MSK: Normal strength, joints nl( pt recieved anti-infl). LE: no CCE NeurO:: AAOX3, ?numbness in the rt lateral area of te thigh/leg Last Vital Signs Temp Pulse Resp BP Pulse Ox 99 F 86 20 129/79 99 03/02/18 07:24 03/02/18 07:24 03/02/18 07:24 03/02/18 07:24 03/01/18 18:40 CBC, BMP 03/01/18 13:50 03/01/18 13:50 Current Medications Generic Name Dose Route Start Last Admin Trade Name Freq PRN Reason Stop Dose Admin Acetaminophen 1,000 mg 03/01/18 17:24 Ofirmev Injection - IVPB Q6H PRN PAIN LEVEL 1 - 3 Aspirin 81 mg 03/02/18 10:00 Asa - PO DAILY YEIMY Atorvastatin Calcium 10 mg 03/01/18 22:00 03/01/18 22:00 Lipitor - PO 10 mg HS YEIMY Administration Enoxaparin Sodium 40 mg 03/02/18 10:00 Lovenox - SQ DAILY YEIMY Ketorolac Tromethamine 15 mg 03/01/18 17:23 Toradol Injection - IVPUSH 03/06/18 17:22 Q6H PRN PAIN LEVEL 1-5 Levothyroxine Sodium 75 mcg 03/02/18 07:00 03/02/18 07:05 Synthroid - PO 75 mcg DAILY@0700 YEIMY Administration Lisinopril 10 mg 03/02/18 10:00 Prinivil PO DAILY YEIMY Metoprolol Succinate 50 mg 03/02/18 10:00 Toprol Xl - PO DAILY YEIMY Tramadol HCl 50 mg 03/01/18 17:24 Ultram - PO Q6H PRN PAIN LEVEL 1-5 Stage I breast Ca -off of hormonal therapy due to possible ?PMR ?PMR: Rheum c/s Numbness in the lateral part of the thigh: Neuro c/s d.w pt//ER
[2018-03-02] MEDS: LISINOPRIL 20 MG TABLET (FP) PO SCH (10:08)
[2018-03-02] MEDS: ASPIRIN 81 MG CHEWABLE TABLETS PO SCH (10:09)
[2018-03-02] MEDS: ENOXAPARIN NA (PORCINE) 40 MG/0.4 ML DISP.SYRIN SQ SCH (10:09)
[2018-03-02 10:32] LABS: BASO % 0.6 % (0-2.0); EOS % 1.8 % (0-4.5); HEMATOCRIT 33.6 % (32.4-45.2); HEMOGLOBIN 11.3 GM/dL (10.7-15.3); LYMPH % 11.7 % (8-40); MCH 30.8 pg (25.7-33.7); MCHC 33.7 g/dl (32.0-36.0); MEAN CELL VOLUME 91.4 fl (80-96); MEAN PLT VOLUME 8.1 fl (7.5-11.1); MONO % 5.9 % (3.8-10.2); PLATELET COUNT 256 K/MM3 (134-434); RBC 3.68 M/mm3 (3.60-5.2); RDW 13.4 % (11.6-15.6); WHITE BLOOD COUNT 6.5 K/mm3 (4.0-10.0)
[2018-03-02 11:27] LABS: ALBUMIN 3.1 g/dl (3.4-5.0); ANION GAP 7 (8-16); BLOOD UREA NITROGEN 17 mg/dL (7-18); CALCIUM 8.9 mg/dL (8.5-10.1); CHLORIDE 105 mmol/L (98-107); CO2 29 mmol/L (21-32); GLUCOSE,RANDOM 135 mg/dL (74-106); MAGNESIUM 1.8 mg/dL (1.8-2.4); POTASSIUM 4.2 mmol/L (3.5-5.1); SODIUM 141 mmol/L (136-145)
[2018-03-02 11:30] LABS: ALK PHOS 172 U/L (45-117); BILIRUBIN,TOTAL 0.3 mg/dL (0.2-1.0); CREATININE 0.8 mg/dL (0.55-1.02); PHOSPHOROUS 2.8 mg/dL (2.5-4.9); SGOT/AST 23 U/L (15-37); SGPT/ALT 29 U/L (12-78); TOT PROT 6.7 g/dl (6.4-8.2)
--- NOTE | 2018-03-02 12:05 | PN ---
Progress Note, Physician Chief Complaint: is a 67 year old female h significant for breast CA s/p left lumpectomy, chemo radiation med started in January, stopped 1 week ago secondary to polyarticular pain. She came in with 2 weeks of polyarticular pain/weakness without improvement. She reports pain is more upon waking up and gets slightly better throughout the day. Other fan denies further symptoms. Today she reports she feels better after receiving anti-inflammatory. Denies fever/chills, chest pain, sob, n/v/d, or unilateral weakness. - Current Medication List Current Medications: Active Medications Acetaminophen (Ofirmev Injection -) 1,000 mg IVPB Q6H PRN PRN Reason: PAIN LEVEL 1 - 3 Last Admin: 03/02/18 10:09 Dose: 1,000 mg Aspirin (Asa -) 81 mg PO DAILY [facility] Last Admin: 03/02/18 10:09 Dose: 81 mg Atorvastatin Calcium (Lipitor -) 10 mg PO HS [facility] Last Admin: 03/01/18 22:00 Dose: 10 mg Enoxaparin Sodium (Lovenox -) 40 mg SQ DAILY [facility] Last Admin: 03/02/18 10:09 Dose: 40 mg Ketorolac Tromethamine (Toradol Injection -) 15 mg IVPUSH Q6H PRN PRN Reason: PAIN LEVEL 1-5 Stop: 03/06/18 17:22 Levothyroxine Sodium (Synthroid -) 75 mcg PO DAILY@0700 [facility] Last Admin: 03/02/18 07:05 Dose: 75 mcg Lisinopril (Prinivil) 10 mg PO DAILY [facility] Last Admin: 03/02/18 10:08 Dose: 10 mg Metoprolol Succinate (Toprol Xl -) 50 mg PO DAILY [facility] Last Admin: 03/02/18 10:09 Dose: 50 mg Tramadol HCl (Ultram -) 50 mg PO Q6H PRN PRN Reason: PAIN LEVEL 1-5 - Objective Vital Signs: Vital Signs Temperature 98.2 F 03/02/18 10:05 Pulse Rate 101 H 03/02/18 10:05 Respiratory Rate 18 03/02/18 10:05 Blood Pressure 114/72 03/02/18 10:05 O2 Sat by Pulse Oximetry (%) 99 03/01/18 18:40 Constitutional: Yes: Well Nourished, No Distress Labs: CBC, BMP 03/02/18 09:50 03/02/18 09:50 Problem List - Problems (1) Polyarthralgia Assessment/Plan: polyarticular pain x 2 weeks affecting ADL's, morning stiffness with improvement throughout the day ESR 89 highly suspect PMR Prednisone 15mg started RF, TSH, lyme studies pending Rheumatology consult pending will monitor Code(s): M25.50 - PAIN IN UNSPECIFIED JOINT (2) Breast cancer, left breast Assessment/Plan: s/p lumpectomy, chemo med stopped 1 week ago due to polyarticular symptoms heme-onc consult pending followed by outpt Code(s): C50.912 - MALIGNANT NEOPLASM OF UNSPECIFIED SITE OF LEFT FEMALE BREAST Qualifiers: Breast location: overlapping sites of breast Patient sex: female (3) HTN (hypertension) Assessment/Plan: controlled continue home meds Code(s): I10 - ESSENTIAL (PRIMARY) HYPERTENSION Qualifiers: Hypertension type: essential hypertension Qualified Code(s): I10 - Essential (primary) hypertension (4) Hyperlipidemia Assessment/Plan: chronic Code(s): E78.5 - HYPERLIPIDEMIA, UNSPECIFIED
[2018-03-02] MEDS ORDERED: predniSONE 20 MG TABLET (UD) PO SCH (12:45)
[2018-03-02] MEDS ORDERED: predniSONE 5 MG TABLET (UD) PO SCH (12:50)
[2018-03-02] MEDS: PANTOPRAZOLE 40 MG TABLET (FP) PO SCH (14:22)
--- NOTE | 2018-03-02 16:35 | CONSULT ---
Consult Consult Specialty:: Rheumatology - History of Present Illness History of Present Illness: 67 year old female with PMH of HTN, HLD, ischemic colitis, diverticulitis, breast cancer s/p L lumpectomy, radiotherapy and recently started on Anastrazole , admitted with diffuse aches and pains. HPI. On January 27 the patient was prescribed Anastrazole. Two days later she developed low back pain followed by pain in shoulders and diffuse aches and pains. She discontinued Anastrazole after 1 week, however there was no change in the pain. The patient was admitted yesterday, she was given Toradol resulting in significant improvement. At the present time she has only mild pain in shoulders. I saw the patient in the mroning and in the afternoon she was prescribed Prednisone 15 mg/d. Laboratory on admission revealed ESR: 89 and CRP: 4.6 (N<0.3). - History Source History Provided By: Patient, Medical Record - Past Medical History Cardio/Vascular: Yes: HTN, Hyperlipdemia Gastrointestinal: Yes: Other (H/O ischemic colitis) Endocrine: Yes: Hyperthyroidism, Hypothyroidism - Past Surgical History Past Surgical History: Yes: , Cholecystectomy - Alcohol/Substance Use Hx Alcohol Use: Yes (rare) History of Substance Use: reports: None - Smoking History Smoking history: Former smoker Have you smoked in the past 12 months: No Aproximately how many cigarettes per day: 0 If you are a former smoker, when did you quit?: 1985 - Social History ADL: Independent Home Medications - Allergies Allergies/Adverse Reactions: Allergies Allergy/AdvReac Type Severity Reaction Status Date / Time Sulfa (Sulfonamide Allergy Swelling Verified 12/29/17 13:04 Antibiotics) - Home Medications Home Medications: Ambulatory Orders Levothyroxine [Synthroid -] 75 mcg PO DAILY #0 tablet 08/23/13 Metoprolol Succinate [Toprol XL -] 50 mg PO DAILY #0 tab.sr.24h 08/23/13 Lisinopril [Prinivil] 10 mg PO DAILY 05/22/15 Lansoprazole [Prevacid -] 15 mg PO DAILY 05/23/15 Simvastatin [Zocor -] 10 mg PO HS 05/23/15 Aspirin [ASA -] 81 mg PO DAILY 12/29/17 Calcium Carbonate [Calcium] 500 mg PO BID 12/29/17 Naproxen 500 mg PO BID PRN #20 tablet 03/01/18 Tramadol HCl [Ultram] 50 mg PO TID PRN #15 tablet MDD 3 tabs 03/01/18 Family Disease History - Family Disease History Family Disease History: CA: Mother (breast 42 ), Brother (prostate ca 58 living) Review of Systems - Review of Systems Constitutional: reports: Malaise Eyes: reports: No Symptoms HENT: reports: No Symptoms Neck: reports: No Symptoms Cardiovascular: reports: No Symptoms Respiratory: reports: No Symptoms Gastrointestinal: reports: No Symptoms Musculoskeletal: reports: Other (See HPI) Physical Exam Vital Signs: Vital Signs Temperature 98.0 F 03/02/18 14:10 Pulse Rate 83 03/02/18 14:10 Respiratory Rate 18 03/02/18 14:10 Blood Pressure 124/76 03/02/18 14:10 O2 Sat by Pulse Oximetry (%) 99 03/02/18 09:00 Constitutional: Yes: No Distress Eyes: Yes: WNL HENT: Yes: WNL Neck: Yes: WNL Cardiovascular: Yes: WNL Respiratory: Yes: WNL Gastrointestinal: Yes: WNL Musculoskeletal: Yes: Other (Minimal tenderness in both shoulders, mainly over the grater tuberosity on extension of the joint suggesting rotator cuff tendonitis or PMR. No other active joints.) Labs: CBC, BMP 03/02/18 09:50 03/02/18 09:50 Laboratory Tests 03/01/18 03/01/18 13:50 13:50 ESR 89 H C-Reactive Protein 3.6 H Problem List - Problems (1) Polyarthralgia Assessment/Plan: The patient developed diffuse pain 2 days after she started Anastrazole, and she improved significantly with one dose of Toradol (yesterday). Even though she has elevated ESR and CRP, as she has minimal tenderness at the present time , I am not certain that she has polymyalgia rheumatica. She was started today on Prednisone 15 mg/d. Plan: I suggest to decrease Prednisone to 10 mg/d, and taper it and DC as outpatient based on progression of pain. Code(s): M25.50 - PAIN IN UNSPECIFIED JOINT
[2018-03-02] MEDS: ATORVASTATIN CA 10 MG TABLET (FP) PO SCH (21:06)
--- NOTE | 2018-03-02 23:16 | PN ---
Progress Note (short form) - Note Progress Note: pt feels much better. Pt on prednisone. Pt seen and examined. O/E: Gen: NAD HEENT: NCAT Cor:RRR MSK: Normal strength, joints nl( pt recieved anti-infl). LE: no CCE NeurO:: AAOX3 Last Vital Signs Temp Pulse Resp BP Pulse Ox 98.7 F 85 20 137/80 99 03/02/18 20:31 03/02/18 20:31 03/02/18 20:31 03/02/18 20:31 03/02/18 09:00 CBC, BMP 03/02/18 09:50 03/02/18 09:50 Current Medications Generic Name Dose Route Start Last Admin Trade Name Freq PRN Reason Stop Dose Admin Acetaminophen 1,000 mg 03/01/18 17:24 03/02/18 10:09 Ofirmev Injection - IVPB 1,000 mg Q6H PRN Administration PAIN LEVEL 1 - 3 Aspirin 81 mg 03/02/18 10:00 03/02/18 10:09 Asa - PO 81 mg DAILY YEIMY Administration Atorvastatin Calcium 10 mg 03/01/18 22:00 03/02/18 21:06 Lipitor - PO 10 mg HS YEIMY Administration Enoxaparin Sodium 40 mg 03/02/18 10:00 03/02/18 10:09 Lovenox - SQ 40 mg DAILY YEIMY Administration Levothyroxine Sodium 75 mcg 03/02/18 07:00 03/02/18 07:05 Synthroid - PO 75 mcg DAILY@0700 YEIMY Administration Lisinopril 10 mg 03/02/18 10:00 03/02/18 10:08 Prinivil PO 10 mg DAILY YEIMY Administration Metoprolol Succinate 50 mg 03/02/18 10:00 03/02/18 10:09 Toprol Xl - PO 50 mg DAILY YEIMY Administration Pantoprazole Sodium 40 mg 03/02/18 12:15 03/02/18 14:22 Protonix - PO 40 mg DAILY YEIMY Administration Prednisone 10 mg 03/03/18 12:50 Deltasone - PO DAILY YEIMY appreciate rheum c/s f/u on Neuro
[2018-03-03] MEDS: LEVOTHYROXINE NA 75 MCG TABLET (FP) PO SCH (06:51)
[2018-03-03 08:18] LABS: LDH 145 U/L (84-246)
[2018-03-03] MEDS: LISINOPRIL 20 MG TABLET (FP) PO SCH (10:00)
--- NOTE | 2018-03-03 10:06 | DS ---
Physical Examination Vital Signs: Vital Signs Temperature 98.2 F 03/03/18 06:45 Pulse Rate 84 03/03/18 06:45 Respiratory Rate 20 03/03/18 06:45 Blood Pressure 128/79 03/03/18 06:45 O2 Sat by Pulse Oximetry (%) 99 03/02/18 21:00 Constitutional: Yes: Well Nourished, No Distress, Calm Cardiovascular: Yes: WNL, Regular Rate and Rhythm. No: Murmur Respiratory: Yes: WNL, Regular, CTA Bilaterally. No: Accessory Muscle Use, Poor Air Entry, SOB, Tachypnea, Wheezes Gastrointestinal: Yes: WNL, Normal Bowel Sounds, Soft. No: Distention, Tenderness Musculoskeletal: Yes: WNL Extremities: Yes: WNL Edema: No Neurological: Yes: WNL, Alert, Oriented ...Motor Strength: WNL Psychiatric: Yes: WNL, Alert, Oriented Labs: CBC, BMP 03/02/18 09:50 03/02/18 09:50 Discharge Summary Reason For Visit: ARTHRALGIA Current Active Problems Arthritic-like pain (Acute) HTN (hypertension) (Acute) Hyperlipidemia (Acute) Polyarthralgia (Acute) Hospital Course: is a 67 year old female with PMH of HTN, HLD, ischemic colitis, diverticulitis, breast cancer s/p L lumpectomy, radiotherapy and recently started on Anastrazole, admitted with polyarticular pain x 2 weeks without improvement. Morning stiffness with improvement throughout the day, esr elevation noted. polymyalgia rheumatica suspected. Pt received 1 dose of iv toradol in ed and had mild relief. Prednisone started yesterday, pt reports significant relief today, pt able to do adls without prior pain/discomfort. Rheum consult appreciated. Plan to d/c pt on po prednisone 10mg and f/u outpt with pcp/rheum to assess improvement and taper prednisone as needed. Protonix started for gi prophylaxis. Pt is safe to d/c from hospital. F/u as directed. Condition: Good - Instructions Diet, Activity, Other Instructions: Resume prev diet, activity naproxen/tramadol prn for pain prednisone 10mg daily, please take with food protonix - GI prophylaxis f/u with pcp, rheum outpt to assess improvement and prednisone taper f/u as directed Referrals: Tod Golden MD [Staff Physician] - 1 Week (rheumatology) Saurav Heard MD [Staff Physician] - 2 Weeks (neurology ) Gaston Amin MD [Staff Physician] - 1 Week Jacob Munguia MD [Primary Care Provider] - 1 Week Disposition: HOME - Home Medications Comprehensive Discharge Medication List: Ambulatory Orders Levothyroxine [Synthroid -] 75 mcg PO DAILY #0 tablet 08/23/13 Metoprolol Succinate [Toprol XL -] 50 mg PO DAILY #0 tab.sr.24h 08/23/13 Lisinopril [Prinivil] 10 mg PO DAILY 05/22/15 Lansoprazole [Prevacid -] 15 mg PO DAILY 05/23/15 Simvastatin [Zocor -] 10 mg PO HS 05/23/15 Aspirin [ASA -] 81 mg PO DAILY 12/29/17 Calcium Carbonate [Calcium] 500 mg PO BID 12/29/17 Naproxen 500 mg PO BID PRN #20 tablet 03/01/18 Tramadol HCl [Ultram] 50 mg PO TID PRN #15 tablet MDD 3 tabs 03/01/18 Pantoprazole Sodium [Protonix -] 20 mg PO DAILY #30 tablet.ec 03/03/18 predniSONE [Deltasone -] 10 mg PO DAILY #30 tablet 03/03/18
[2018-03-03] MEDS: ASPIRIN 81 MG CHEWABLE TABLETS PO SCH (10:30)
[2018-03-03] MEDS: PANTOPRAZOLE 40 MG TABLET (FP) PO SCH (10:30)
[2018-03-03] MEDS: ENOXAPARIN NA (PORCINE) 40 MG/0.4 ML DISP.SYRIN SQ SCH (11:07)
[2018-03-03 12:45] VITALS: BP 140/72; PULSE 82; TEMP 98.1
[2018-03-03] MEDS ORDERED: predniSONE 5 MG TABLET (UD) PO SCH (12:50)
== END 2018-03-03 12:56 | disposition home or self-care (01) ==
LOC: JER 12:18 → JERBED 17:31 → J8W 21:52
PROVIDERS: ADMIT Internal Medicine; ATTEND Internal Medicine
PROC: 3E0333Z Introduction of Anti-inflammatory into Peripheral Vein, Percutaneous Approach (ICD-10-PCS; principal; 2018-03-01)
PROC: 3E033NZ Introduction of Analgesics, Hypnotics, Sedatives into Peripheral Vein, Percutaneous Approach (ICD-10-PCS; 2018-03-01)
PROC: 3E013GC Introduction of Other Therapeutic Substance into Subcutaneous Tissue, Percutaneous Approach (ICD-10-PCS; 2018-03-01)
DX: M25.50 Pain in unspecified joint (principal); M25.512 Pain in left shoulder; M25.511 Pain in right shoulder; C50.912 Malignant neoplasm of unspecified site of left female breast; R20.0 Anesthesia of skin; I10 Essential (primary) hypertension; E78.5 Hyperlipidemia, unspecified; Z79.82 Long term (current) use of aspirin; Z88.2 Allergy status to sulfonamides; Z92.3 Personal history of irradiation; Z87.891 Personal history of nicotine dependence
CPT/HCPCS: 36415; 73030-TC-LT-FY; 80053; 81003; 82550; 83615; 83735; 84100; 84443; 84484; 85025; 85651; 86140; 86431; 87086; 93005; 93010; 96372; 96374; 96375; 97161-GP; 99283-25; G0378; J0131

== ENCOUNTER 2018-09-22 20:24 | Inpatient (IN) | payer OTHER ==
[2018-09-22 20:36] VITALS: BMI 22.3
[2018-09-22] MEDS ORDERED: SODIUM CHLORIDE 1,000 ML IV STA (20:36)
[2018-09-22] MEDS ORDERED: ONDANSETRON 4 MG/2 ML VIAL IVPUSH ONE (20:36)
--- NOTE | 2018-09-22 20:39 | PDOC ---
Rapid Medical Evaluation Chief Complaint: Pain Time Seen by Provider: 09/22/18 20:33 Medical Evaluation: Allergies Allergy/AdvReac Type Severity Reaction Status Date / Time Sulfa (Sulfonamide Allergy Swelling Verified 12/29/17 13:04 Antibiotics) Vital Signs Temp Pulse Resp BP Pulse Ox 97.9 F 89 20 142/120 H 95 09/22/18 20:32 09/22/18 20:32 09/22/18 20:32 09/22/18 20:32 09/22/18 20:32 09/22/18 20:37 Pt c/o: bloody diarrhea since this am, + n/v/chills Pt on brief exam: appears pale, actively vomiting Pt ordered for: labs, ekg, ivf, abd ct, zofran Pt to proceed to the ED Dr. hilton - GI Discharge Disposition - Diagnosis Bloody diarrhea - Referrals - Patient Instructions - Post Discharge Activity
--- NOTE | 2018-09-22 21:18 | PDOC ---
Attending Attestation - [facility] HPI: 09/22/18 21:19 The patient is a 67 year old female with a significant past medical history of ischemic colitis, breast cancer (left cancer, s/p radiation), and polymyalgia rheumatica who presents to the emergency department for evaluation of lower abdominal pain, nausea, vomiting, diarrhea, and rectal bleeding. She reports she has had about 10 episodes of bloody diarrhea and about 4 episodes of nonbloody, watery emesis today. She reports the abdominal pain as 10/10 constant cramping in the lower abdomen. She reportedly had bloody diarrhea 2 years ago with similar quality abdominal painShe reports her last colonoscopy was 2 years ago. The patient denies chest pain, shortness of breath, headache and dizziness. Denies fever, chills, and constipation. Denies dysuria, frequency, urgency and hematuria. Allergies: Sulfa drugs GI: Dr. Woo - Physicial Exam PE: 09/22/18 22:02 Constitutional: Awake, alert, oriented. No acute distress. Head: Normocephalic. Atraumatic Eyes: PERRL. EOMI. Conjunctivae are not pale. ENT: Mucous membranes are moist and intact. Posterior pharynx without exudates or erythema. Uvula midline. Neck: Supple. Full ROM. No lymphadenopathy. Cardiovascular: Regular rate. Regular rhythm. S1, S2 regular. Distal pulses are 2+ and symmetric. Pulmonary/Chest: No evidence of respiratory distress. Clear to auscultation bilaterally No wheezing, rales or rhonchi. Abdominal: (+) Bilateral lower quadrant ttp. Soft and non-distended. No rebound, guarding or rigidity. No organomegaly. No palpable masses. Good bowel sounds. Back: No CVA tenderness. Musculoskeletal: No edema. No cyanosis. No clubbing. Full range of motion in all extremities. Nocalf tenderness. Radial/pedal pulses are intact and 2+ bilaterally Skin: Skin is warm and dry. No petechiae. No purpura. Neurological: Alert and oriented to person, place, and time. Cranial nerves II -XII are grossly intact. Normal speech. Strength is grossly symmetric. No sensory deficits. Psychiatric: Good eye contact. Normal interaction, affect and behavior. - Medical Decision Making 09/22/18 21:21 Documentation prepared by aDgmar Rojo, acting as claim review medical director for Ange Gómez DO DATE OF SERVICE: 2018-09-22 22:59:46 IMAGES: [id number] EXAM: CT abdomen and pelvis with contrast HISTORY: History ischemic colitis COMPARISON: No prior scans have been transmitted for comparison FINDINGS: There is abnormal wall thickening/edema involving the entire left colon and sigmoid colon. There is pericolonic inflammation. Small amount of free fluid along the adjacent mesenteric folds. This represents acute colitis. Although this could be infectious or inflammatory colitis, this is a classic location for ischemic colitis and apparently the patient has such a history. No bowel obstruction. No free intraperitoneal air. No abscess. Normal liver. Prior cholecystectomy. Normal spleen. Normal pancreas. Normal adrenal glands. Nonspecific calcification in the left ovary/adnexa. Questionable significance but follow-up ultrasound recommended to evaluate the ovaries. Osseous structures are intact. Question small nodule right lower lobe. Only partially included on scan. Measures 5 mm. Recommend follow-up according to established criteria. THIS DOCUMENT HAS BEEN ELECTRONICALLY SIGNED Jacob Decker MD 09/23/2018 01:01 EST <Dagmar Rojo - Last Filed: 09/23/18 01:07> - Resident Resident Name: Conor Padilla - ED Attending Attestation I have performed the following: I have examined & evaluated the patient, The case was reviewed & discussed with the resident, I agree w/resident's findings & plan, Exceptions are as noted - Medical Decision Making 09/22/18 21:18 I, Dr. Ange Gómez DO, attest that this document has been prepared under my direction and personally reviewed by me in its entirety. I further attest, that it accurately reflects all work, treatment, procedures and medical decision -making performed by me. 09/22/18 22:19 a/p: 68yo female with hx of ischemic colitis presents for eval of n/v and bloody diarrhea, lower abd pain -feels similar to prior episode of ischemic colitis -pt with BRBPR in the Ed and multiple episodes of bloody diarrhea -pt appears pale -will send labs, ct abd/pelvis -will send stool -Gi dr. woo -will need admission -PMD Dr. Munguia 09/23/18 01:19 pt with elevated wbc also with L sided colitis concerning for ischemic colitis case discussed with Dr. Aiken from [facility] who accepts pt to service call placed to Dr. Woo <Ange Gómez - Last Filed: 09/23/18 01:26> *DC/Admit/Observation/Transfer - Discharge Dispostion Decision to Admit order: Yes <Ange Gómez - Last Filed: 09/23/18 01:26> Diagnosis at time of Disposition: Bloody diarrhea, Colitis - Discharge Dispostion Condition at time of disposition: Fair - Referrals Referrals: Jacob Munguia MD [Primary Care Provider] - - Patient Instructions - Post Discharge Activity Heart Score/ECG Review - ECG Intrepretation Comment:: 09/22/18 22:25 sinus at 85, nl axis, nl interval, no acute st/t wave findings <Ange Gómez - Last Filed: 09/23/18 01:26>
[2018-09-22 21:31] LABS: BASO % 0.4 % (0-2.0); EOS % 0.1 % (0-4.5); HEMATOCRIT 39.3 % (32.4-45.2); HEMOGLOBIN 13.6 GM/dL (10.7-15.3); LYMPH % 4.4 % (8-40); MCH 31.8 pg (25.7-33.7); MCHC 34.5 g/dl (32.0-36.0); MEAN CELL VOLUME 92.3 fl (80-96); MEAN PLT VOLUME 8.7 fl (7.5-11.1); MONO % 3.2 % (3.8-10.2); NEUT % 91.9 % (42.8-82.8); PLATELET COUNT 231 K/MM3 (134-434); RBC 4.26 M/mm3 (3.60-5.2); WHITE BLOOD COUNT 17.9 K/mm3 (4.0-10.0)
[2018-09-22] MEDS ORDERED: ONDANSETRON 4 MG/2 ML VIAL ONE (21:37)
[2018-09-22 21:43] LABS: INR 1.01 (0.83-1.09); PROTHROMBIN TIME (PATIENT) 11.9 SEC (9.7-13.0)
--- NOTE | 2018-09-22 21:58 | PDOC ---
History of Present Illness - General Chief Complaint: Pain Stated Complaint: COLITIS Time Seen by Provider: 09/22/18 20:33 History Source: Patient Exam Limitations: No Limitations - History of Present Illness Initial Comments: 09/22/18 21:44 68 yo F with a hx ischemic colitis, breast cancer (left cancer, s/p radiation), and polymyalgia rheumatica presents to the emergency department with bloody diarrhea with concurrent lower abdominal pain for the last 3 hours. Per the patient, she has had 10x bloody diarrhea episodes with nausea and vomiting (4x, NBNB, watery). The pain in the abdomen is cramping in description 10/10, constant, non radiating, located throughout the abdomen with most acuity in the lower abdomen bilaterally. Her last episode of bloody diarrhea was 2 years ago with similar quality abdominal pain. She is followed by Dr. Woo and last colonoscopy was 2 years ago. Denies the following: fever, chills, visual changes , headache, ears/nose/throat pain, chest pain, SOB, dysuria, hematuria, diarrhea , and leg pain/swelling. Denies eating raw meats and ate a turkey last night. Pmhx: Refer to above Shx: C/S. Allergies: NKDA Medications: metoprolol, lisinopril, zocar, aspirin 81 mg, tomoxifen, prednisone Social: Denies tobacco, alcohol, and substance abuse 09/22/18 21:59 Past History - Past Medical History Allergies/Adverse Reactions: Allergies Allergy/AdvReac Type Severity Reaction Status Date / Time Sulfa (Sulfonamide Allergy Swelling Verified 12/29/17 13:04 Antibiotics) Home Medications: Ambulatory Orders Levothyroxine [Synthroid -] 75 mcg PO DAILY #0 tablet 08/23/13 Metoprolol Succinate [Toprol XL -] 50 mg PO DAILY #0 tab.sr.24h 08/23/13 Lisinopril [Prinivil] 10 mg PO DAILY 05/22/15 Lansoprazole [Prevacid -] 15 mg PO DAILY 05/23/15 Simvastatin [Zocor -] 10 mg PO HS 05/23/15 Aspirin [ASA -] 81 mg PO DAILY 12/29/17 Calcium Carbonate [Calcium] 500 mg PO BID 12/29/17 Naproxen 500 mg PO BID PRN #20 tablet 03/01/18 Tramadol HCl [Ultram] 50 mg PO TID PRN #15 tablet MDD 3 tabs 03/01/18 Pantoprazole Sodium [Protonix -] 20 mg PO DAILY #30 tablet.ec 03/03/18 predniSONE [Deltasone -] 10 mg PO DAILY #30 tablet 03/03/18 Anemia: No Asthma: No Cancer: Yes (L breast) Cardiac Disorders: No CVA: No COPD: No CHF: No Dementia: No Diabetes: No GI Disorders: Yes (ISCHEMIC COLITIS) Disorders: No HTN: Yes Hypercholesterolemia: Yes Liver Disease: No Seizures: No Thyroid Disease: Yes - Surgical History Abdominal Surgery: No Appendectomy: No Cardiac Surgery: No Cholecystectomy: Yes Lung Surgery: No Neurologic Surgery: No Orthopedic Surgery: No - Immunization History Immunization Up to Date: Yes - Suicide/Smoking/Psychosocial Hx Smoking Status: Yes Smoking History: Never smoked Have you smoked in the past 12 months: No Number of Cigarettes Smoked Daily: 0 If you are a former smoker, when did you quit?: 1985 Cigars Per Day: 0 Hx Alcohol Use: Yes (rare) Drug/Substance Use Hx: No Substance Use Type: Alcohol Hx Substance Use Treatment: No Review of Systems - Review of Systems Able to Perform ROS?: Yes Is the patient limited Turkmen proficient: No Constitutional: Yes: Weakness. No: Chills, Diaphoresis, Fever HEENTM: No: Eye Pain, Recent change in vision, Ear Pain, Nose Pain, Throat Pain , Mouth Pain Respiratory: No: Cough, Shortness of Breath, SOB with Exertion, Hemoptysis Cardiac (ROS): No: Chest Pain, Lightheadedness, Palpitations, Syncope, Chest Tightness ABD/GI: Yes: Nausea, Rectal Bleeding, Vomiting, Abdominal cramping. No: Constipated, Diarrhea, Poor Appetite, Poor Fluid Intake, Tarry Stools : No: Burning, Dysuria, Hematuria, Urgency Musculoskeletal: No: Back Pain, Joint Pain, Neck Pain Integumentary: Yes: Pallor. No: Lesions, Lumps, Rash Neurological: No: Headache, Numbness, Tingling, Tremors, Dizziness Psychiatric: No: Stressors Endocrine: No: Unexplained Weight Gain Hematologic/Lymphatic: No: Anemia *Physical Exam - Vital Signs Last Vital Signs Temp Pulse Resp BP Pulse Ox 97.9 F 89 20 116/57 L 95 09/22/18 20:32 09/22/18 20:32 09/22/18 20:32 09/22/18 20:32 09/22/18 20:32 - Physical Exam General Appearance: Yes: Nourished, Appropriately Dressed, Other (pale on appearance ). No: Apparent Distress, Intoxicated HEENT: positive: EOMI, MELVI, Normal Voice. negative: Pale Conjunctivae, Scleral Icterus (R), Scleral Icterus (L), Muffled/Hoarse voice, Nasal Congestion , Sinus Tenderness, Excessive drooling Neck: positive: Trachea midline. negative: Tender, Lymphadenopathy (R), Lymphadenopathy (L), Tender lateral, Tender midline Respiratory/Chest: positive: Lungs Clear, Normal Breath Sounds. negative: Chest Tender, Respiratory Distress, Accessory Muscle Use, Crackles, Rales, Rhonchi, Stridor, Wheezing, Hyperresonant Cardiovascular: positive: Regular Rhythm, Regular Rate, S1, S2. negative: Systolic Murmur Gastrointestinal/Abdominal: positive: Normal Bowel Sounds, Tender (diffusely tender with point of maximal tenderness in the LLQ. ), Flat, Soft. negative: Distended, Rebound, Hernia Lymphatic: negative: Adenopathy Musculoskeletal: positive: Normal Inspection, CVA Tenderness (left). negative: Vertebral Tenderness Extremity: positive: Normal Capillary Refill, Normal Inspection, Normal Range of Motion. negative: Tender Integumentary: positive: Dry, Warm, Pale. negative: Rash, Swelling Neurologic: positive: wired sweatband cutter II-XII NML intact, Fully Oriented, Alert, Normal Mood/ Affect, Normal Response, Motor Strength 5/5. negative: EOM Palsy, Sensory Deficit Moderate Sedation - Procedure Monitoring Vital Signs: Procedure Monitoring Vital Signs Temperature 97.9 F 09/22/18 20:32 Pulse Rate 89 09/22/18 20:32 Respiratory Rate 20 09/22/18 20:32 Blood Pressure 116/57 L 09/22/18 20:32 O2 Sat by Pulse Oximetry (%) 95 09/22/18 20:32 ED Treatment Course - LABORATORY CBC & Chemistry Diagram: 09/22/18 21:13 09/22/18 21:13 - ADDITIONAL ORDERS Additional order review: Laboratory Results 09/22/18 21:13 PT with INR 11.90 INR 1.01 09/22/18 21:13 RBC 4.26 MCV 92.3 MCHC 34.5 RDW 14.0 MPV 8.7 Neutrophils % 91.9 H Lymphocytes % 4.4 L D Monocytes % 3.2 L Eosinophils % 0.1 Basophils % 0.4 - RADIOLOGY Radiology Studies Ordered: Category Date Time Status ABDOMEN & PELVIS CT WITH CONTR [CT] Stat CT Scan 09/22/18 21:39 Ordered Medical Decision Making - Medical Decision Making 09/22/18 23:35 68 yo F with a hx ischemic colitis, breast cancer (left cancer, s/p radiation), and polymyalgia rheumatica presents to the emergency department with bloody diarrhea with concurrent lower abdominal pain for the last 3 hours. Initial vitals Initial Vital Signs Temp Pulse Resp BP Pulse Ox 97.9 F 89 20 116/57 L 95 09/22/18 20:32 09/22/18 20:32 09/22/18 20:32 09/22/18 20:32 09/22/18 20:32 Work up: ddx: infectious bloody diarrhea (e coli vs salmonella vs shigella) vs colitis vs diverticulitis/diverticulosis vs ischemic colitis vs aorta-enteric fistula vs IBD Laboratory Tests 09/22/18 09/22/18 09/22/18 21:13 21:13 21:13 WBC 17.9 H RBC 4.26 Hgb 13.6 Hct 39.3 MCV 92.3 MCH 31.8 MCHC 34.5 RDW 14.0 Plt Count 231 MPV 8.7 Absolute Neuts (auto) 16.5 H Total Counted 100 Neutrophils % 91.9 H Neutrophils % (Manual) 83.0 H Band Neutrophils % 11.0 Lymphocytes % 4.4 L D Lymphocytes % (Manual) 2.0 L Monocytes % 3.2 L Monocytes % (Manual) 4 Eosinophils % 0.1 Basophils % 0.4 Nucleated RBC % 0 PT with INR INR Sodium 143 Potassium 4.5 Chloride 108 H Carbon Dioxide 26 Anion Gap 9 BUN 20 H Creatinine 1.1 Creat Clearance w eGFR 49.39 Random Glucose 154 H Lactic Acid Calcium 9.6 Magnesium Total Bilirubin 0.4 AST 29 ALT 26 Alkaline Phosphatase 114 Creatine Kinase 72 Troponin I < 0.02 Total Protein 6.8 Albumin 3.4 Lipase Stool Occult Blood Blood Type O POSITIVE Antibody Screen Negative 09/22/18 09/22/18 09/22/18 21:13 21:13 21:13 WBC RBC Hgb Hct MCV MCH MCHC RDW Plt Count MPV Absolute Neuts (auto) Total Counted Neutrophils % Neutrophils % (Manual) Band Neutrophils % Lymphocytes % Lymphocytes % (Manual) Monocytes % Monocytes % (Manual) Eosinophils % Basophils % Nucleated RBC % PT with INR 11.90 INR 1.01 Sodium Potassium Chloride Carbon Dioxide Anion Gap BUN Creatinine Creat Clearance w eGFR Random Glucose Lactic Acid 1.7 Calcium Magnesium 1.9 Total Bilirubin AST ALT Alkaline Phosphatase Creatine Kinase Troponin I Total Protein Albumin Lipase 248 Stool Occult Blood Blood Type Antibody Screen 09/22/18 09/22/18 21:13 21:35 WBC RBC Hgb Hct MCV MCH MCHC RDW Plt Count MPV Absolute Neuts (auto) Total Counted Neutrophils % Neutrophils % (Manual) Band Neutrophils % Lymphocytes % Lymphocytes % (Manual) Monocytes % Monocytes % (Manual) Eosinophils % Basophils % Nucleated RBC % PT with INR INR Sodium Potassium Chloride Carbon Dioxide Anion Gap BUN Creatinine Creat Clearance w eGFR Random Glucose Lactic Acid Calcium Magnesium Total Bilirubin AST ALT Alkaline Phosphatase Creatine Kinase Troponin I Total Protein Albumin Lipase Stool Occult Blood Positive Blood Type O POSITIVE Antibody Screen CT abdomen and pelvis ordered with IV contrast. Given 1 gram of tylenol for pain control and ordered another 2 mg of morphine for analgesia control. Patient was signed out to Dr. Arenas 09/23/18 00:11 *DC/Admit/Observation/Transfer Diagnosis at time of Disposition: Bloody diarrhea - Referrals Referrals: Jacob Munguia MD [Primary Care Provider] - - Patient Instructions - Post Discharge Activity
[2018-09-22] MEDS ORDERED: ACETAMINOPHEN 1000 MG/100 ML VIAL (NON FORMULARY) IVPB ONE (21:59)
[2018-09-22 22:00] LABS: ALBUMIN 3.4 g/dl (3.4-5.0); ALK PHOS 114 U/L (45-117); ANION GAP 9 MMOL/L (8-16); BILIRUBIN,TOTAL 0.4 mg/dL (0.2-1); BLOOD UREA NITROGEN 20 mg/dL (7-18); CALCIUM 9.6 mg/dL (8.5-10.1); CHLORIDE 108 mmol/L (98-107); CO2 26 mmol/L (21-32); CREATININE 1.1 mg/dL (0.55-1.3); GLUCOSE,RANDOM 154 mg/dL (74-106); MAGNESIUM 1.9 mg/dL (1.8-2.4); POTASSIUM 4.5 mmol/L (3.5-5.1); SGOT/AST 29 U/L (15-37); SGPT/ALT 26 U/L (13-61); SODIUM 143 mmol/L (136-145); TOT PROT 6.8 g/dl (6.4-8.2)
[2018-09-22] MEDS ORDERED: ACETAMINOPHEN INJECTION 100 ML IVPB ONE (22:37)
[2018-09-22] MEDS ORDERED: morphine CARPU-JECT 2 MG/1 ML DISP.SYRIN IVPUSH ONE (23:46)
--- NOTE | 2018-09-22 23:57 | PDOC ---
*Physical Exam - Vital Signs Last Vital Signs Temp Pulse Resp BP Pulse Ox 97.9 F 89 20 116/57 L 95 09/22/18 20:32 09/22/18 20:32 09/22/18 20:32 09/22/18 20:32 09/22/18 20:32 ED Treatment Course - LABORATORY CBC & Chemistry Diagram: 09/22/18 21:13 09/22/18 21:13 - ADDITIONAL ORDERS Additional order review: Laboratory Results 09/22/18 09/22/18 09/22/18 21:35 21:13 21:13 PT with INR INR Sodium Potassium Chloride Carbon Dioxide Anion Gap BUN Creatinine Creat Clearance w eGFR Random Glucose Lactic Acid 1.7 Calcium Magnesium Total Bilirubin AST ALT Alkaline Phosphatase Creatine Kinase Troponin I Total Protein Albumin Lipase Stool Occult Blood Positive Blood Type O POSITIVE Antibody Screen 09/22/18 09/22/18 09/22/18 21:13 21:13 21:13 PT with INR 11.90 INR 1.01 Sodium Potassium Chloride Carbon Dioxide Anion Gap BUN Creatinine Creat Clearance w eGFR Random Glucose Lactic Acid Calcium Magnesium 1.9 Total Bilirubin AST ALT Alkaline Phosphatase Creatine Kinase Troponin I Total Protein Albumin Lipase 248 Stool Occult Blood Blood Type O POSITIVE Antibody Screen Negative 09/22/18 21:13 PT with INR INR Sodium 143 Potassium 4.5 Chloride 108 H Carbon Dioxide 26 Anion Gap 9 BUN 20 H Creatinine 1.1 Creat Clearance w eGFR 49.39 Random Glucose 154 H Lactic Acid Calcium 9.6 Magnesium Total Bilirubin 0.4 AST 29 ALT 26 Alkaline Phosphatase 114 Creatine Kinase 72 Troponin I < 0.02 Total Protein 6.8 Albumin 3.4 Lipase Stool Occult Blood Blood Type Antibody Screen 09/22/18 21:13 RBC 4.26 MCV 92.3 MCHC 34.5 RDW 14.0 MPV 8.7 Neutrophils % 91.9 H Lymphocytes % 4.4 L D Monocytes % 3.2 L Eosinophils % 0.1 Basophils % 0.4 - Medications Given in the ED: ED Medications Discontinued Medications Generic Name Dose Route Start Last Admin Trade Name Freq PRN Reason Stop Dose Admin Acetaminophen 1,000 mg 09/22/18 21:59 09/22/18 22:35 Ofirmev Injection - IVPB 09/22/18 22:00 1,000 mg ONCE ONE Administration Sodium Chloride 1,000 mls @ 1,000 mls/hr 09/22/18 20:36 09/22/18 21:00 Normal Saline - IV 09/22/18 21:35 1,000 mls/hr ASDIR STA Administration Ondansetron HCl 4 mg 09/22/18 20:36 09/22/18 21:00 Zofran Injection IVPUSH 09/22/18 20:37 4 mg ONCE ONE Administration Medical Decision Making - Medical Decision Making 09/23/18 00:[address] Padilla Briefly, patient is a 68 year old female with a PMHx of ischemic colitis, breast cancer (left cancer, s/p radiation), and polymyalgia rheumatica presented for bloody diarrhea associated with acute lower abdominal pain within the last few hours. -Labs done which revealed leukocytosis -CT Pending and will then likely admit 09/23/18 01:08 -CT revealed thickening/edema involving the entire left colon and sigmoid colon with pericolonic inflammation. Small amount of free fluid along the adjacent mesenteric folds. This represents acute colitis. -[facility] sent to [facility] for admission 09/23/18 01:28 Patient accepted for admission by Dr. Landry *DC/Admit/Observation/Transfer Diagnosis at time of Disposition: Bloody diarrhea, Colitis - Discharge Dispostion Condition at time of disposition: Fair Decision to Admit order: Yes - Referrals Referrals: Jacob Munguia MD [Primary Care Provider] - - Patient Instructions - Post Discharge Activity
[2018-09-23] MEDS ORDERED: METOCLOPRAMIDE HCL INJECTION 10 MG/2 ML VIAL IVPUSH ONE (00:38)
[2018-09-23] MEDS ORDERED: MORPHINE SULFATE 2 MG/ML VIAL ONE (00:59)
[2018-09-23] MEDS ORDERED: SODIUM CHLORIDE 0.9% 1000 ML INFUS.BAG IV ONE (01:26)
[2018-09-23] MEDS: LACTATED RINGERS SOLUTION 1,000 ML/1,000 ML INFUS.BAG IV SCH (01:51)
[2018-09-23] MEDS ORDERED: METOCLOPRAMIDE HCL INJECTION 10 MG/2 ML VIAL ONE (01:59)
--- NOTE | 2018-09-23 02:04 | PN ---
Teaching Attending Note Name of Resident: Simeon Landry ATTENDING PHYSICIAN STATEMENT I saw and evaluated the patient. I reviewed the resident's note and discussed the case with the resident. I agree with the resident's findings and plan as documented. SUBJECTIVE: Seen and examined; please see resident note for further details. Briefly, this is a patient with a h/o ischemic colitis who follows with Dr. Woo who presents to the ER with a CC of abdominal pain and bloody BM since this afternoon. She was seen for ischemic colitis by GI in the past and was last scoped 2 years ago. These sx are the exact same that she had during her prior issue with ischemic colitis. The aformentioned was associated with nausea and an episode with bilious vomiting. She had multiple episodes of BRBPR and did have one in the ER (FOBT +). She is hemodynamically stable and afebrile; hb is still wnl. Of note is that she is still on PO prednisone for suspected PMR; Dr. Golden saw her last time she was here and recommended DCing it as an OP. CT obtained in the ER endorses ischemic colitis. Resident did speak with Dr. Woo regarding patient; recommendations discussed below. Will admit to the medicine service with GI consult. 10 sys ROS done and negative aside from HPI PMH and PSH reviewed (Breast Cancer [L-side, s/p sgy, chemo-radiation on tamoxifen], ischemic colitis, PMR, HTN, Diverticulitis, Hypothyroidism) Socially she doesn't abuse alcohol or drugs FH asked and noncontributory Medication list reviewed and is pending reconciliation OBJECTIVE: VS, labs, imaging reviewed NAD, AAO, resting in bed RRR s1/2 no mgr Tender to palpation throughout, mild tympany, no hsm, hyperactive bs Lungs CTAB w/ sym exp CN2-12 wnl, no fnd Normal mood, appropriate behavior Labs show WBC to 17 with a left shift, normal coags, chemistry with slightly elevated BUN to 20 with mild hyperglycemia to 154. Lipase normal, troponin and lactate normal. CK normal. Positive FOBT. O-positive blood. Stool studies pending. CT scan prelim read shows abnormal wall thickening and edema of the entire L- colon and sigmoid colon with associated pericolonic inflammation and trace free fluid along the mesenteric folds representing acute collitis; this is a classic presentation for acute ischemic colitis per radiology. ASSESSMENT AND PLAN: This is a 68 y/o female presenting with BRBPR due to recurring ischemic colitis 1) Ischemic Colitis -Recurrance; discussed with GI. Will place on levaquin and flagyl and make NPO. Avoiding AC. -Q8H h/h; recheck lactate and CK, serial abdominal exams -Pain and nausea control -LR@100 -Investigate underlying cause 2) Hx Breast Cancer -Continue home meds; no further issues. 3) Suspected PMR -Per Dr. Golden's note he wasn't sure if she actually had PMR and recommended DCing steroids as OP. She was only taking 2.5mg PO QD at home so will DC this. 4) Hx Diverticulitis -No further issues; will f/u GI 5) Hx Hypothyroidism -F/U TSH as OP; resume LT4 when taking PO 6) Hx HTN -Keep SBP <160 while inpt. 7) Nonspecific calcification in the left adnexa Questionable significance; OP ultrasound recommended to evaluate FENA -LR@100 -PRN replete -NPO -As tolerated Consultants: Dr. Woo (GI) Dispo: Pending improvement of presenting sx, subspecialty assessment Full Code
--- NOTE | 2018-09-23 02:36 | HP ---
CHIEF COMPLAINT: PCP: Jacob Munguia HISTORY OF PRESENT ILLNESS: 68 yo F PMH HTN, HLD, Hypothyroidism, ischemic colitis, diverticulitis, breast cancer s/p L sided lumpectomy with radiation, and polymyalgia rheumatica?, p/w lower abdominal pain, n/v and bloody diarrhea x1d. She reports she has had about 10 episodes of bloody diarrhea and about 4 episodes of nonbloody, watery emesis today. She reports the abdominal pain as 10/10 constant cramping non radiating, located throughout the abdomen with most acuity in the lower abdomen bilaterally. She reportedly had bloody diarrhea 2 years ago with similar quality abdominal pain. She is followed by Dr. Woo and last colonoscopy was 2 years ago, which per pt was nl. Of note, pt had cough this past week and was given a Z-pack. Took naproxen yesterday. Drank eggnog yesterday at [employer] and ate turkey last night. No other family members/friends have been sick from food w/ GI sxs Denies the following: fever, chills, visual changes, JANSEN, ears/nose/throat pain , cp, SOB, dysuria, hematuria, and leg pain/swelling. Denies eating raw meats, changes in diet, recent travel, sick contacts. Medications: metoprolol 50 , lisinopril 20, zocar 20, aspirin 81 mg, tomoxifen, prednisone 2.5, levothyroxine 75, prevacid ER course was notable for: (1) 2L NS,tylenol, morphine 2mg, zofran (2)FOBT+ (3)CT scan prelim read shows abnormal wall thickening and edema of the entire L- colon and sigmoid colon with associated pericolonic inflammation and trace free fluid along the mesenteric folds representing acute collitis; this is a classic presentation for acute ischemic colitis per radiology. Recent Travel: denies PAST MEDICAL HISTORY: GI: Dr. Woo PAST SURGICAL HISTORY: , Cholecystectomy Social History: Smoking: Denies Alcohol:Denies Drugs: Denies Family History: Allergies Sulfa (Sulfonamide Antibiotics) Allergy (Verified 12/29/17 13:04) Swelling HOME MEDICATIONS: Home Medications Medication Instructions Recorded Levothyroxine [Synthroid -] 75 mcg PO DAILY #0 tablet 08/23/13 Metoprolol Succinate [Toprol XL -] 50 mg PO DAILY #0 tab.sr.24h 08/23/13 Lisinopril [Prinivil] 10 mg PO DAILY 05/22/15 Lansoprazole [Prevacid -] 15 mg PO DAILY 05/23/15 Simvastatin [Zocor -] 10 mg PO HS 05/23/15 Aspirin [ASA -] 81 mg PO DAILY 12/29/17 Calcium Carbonate [Calcium] 500 mg PO BID 12/29/17 Naproxen 500 mg PO BID PRN #20 tablet 03/01/18 Tramadol HCl [Ultram] 50 mg PO TID PRN #15 tablet MDD 3 03/01/18 tabs Pantoprazole Sodium [Protonix -] 20 mg PO DAILY #30 tablet.ec 03/03/18 predniSONE [Deltasone -] 10 mg PO DAILY #30 tablet 03/03/18 REVIEW OF SYSTEMS as per HPI PHYSICAL EXAMINATION Vital Signs - 24 hr 09/22/18 20:32 Temperature 97.9 F Pulse Rate 89 Respiratory 20 Rate Blood Pressure 116/57 L O2 Sat by Pulse 95 Oximetry (%) GENERAL: sleepy, OX3, NAD HEAD: NCAT EYES: sclera anicteric, conjunctiva clear. No lid lag. EARS, NOSE, THROAT: Ears normal, nares patent, oropharynx clear without exudates. MMM NECK: Normal range of motion, supple without lymphadenopathy, JVD, or masses. LUNGS: CTAB HEART: RRR, normal S1 and S2 without m/r/g ABDOMEN: Soft, TTP diffuse most prominent in LLQ, ND, normoactive bowel sounds , no guarding, no rebound, no masses. MUSCULOSKELETAL: Normal range of motion at all joints. No bony deformities or tenderness. No CVA tenderness. UPPER EXTREMITIES: 2+ pulses, warm, well-perfused. No cyanosis. No clubbing. No peripheral edema. LOWER EXTREMITIES: 2+ pulses, warm, well-perfused. No calf tenderness. No peripheral edema. NEUROLOGICAL: Cranial nerves II-XII intact. Normal speech. PSYCHIATRIC: Cooperative. Good eye contact. Appropriate mood and affect. SKIN: Warm, dry, normal turgor, no rashes or lesions noted, normal capillary refill. Laboratory Results - last 24 hr 09/22/18 09/22/18 09/22/18 21:13 21:13 21:13 WBC 17.9 H RBC 4.26 Hgb 13.6 Hct 39.3 MCV 92.3 MCH 31.8 MCHC 34.5 RDW 14.0 Plt Count 231 MPV 8.7 Absolute Neuts (auto) 16.5 H Total Counted 100 Neutrophils % 91.9 H Neutrophils % (Manual) 83.0 H Band Neutrophils % 11.0 Lymphocytes % 4.4 L D Lymphocytes % (Manual) 2.0 L Monocytes % 3.2 L Monocytes % (Manual) 4 Eosinophils % 0.1 Basophils % 0.4 Nucleated RBC % 0 PT with INR INR Sodium 143 Potassium 4.5 Chloride 108 H Carbon Dioxide 26 Anion Gap 9 BUN 20 H Creatinine 1.1 Creat Clearance w eGFR 49.39 Random Glucose 154 H Lactic Acid Calcium 9.6 Magnesium Total Bilirubin 0.4 AST 29 ALT 26 Alkaline Phosphatase 114 Creatine Kinase 72 Troponin I < 0.02 Total Protein 6.8 Albumin 3.4 Lipase Stool Occult Blood Blood Type O POSITIVE Antibody Screen Negative 09/22/18 09/22/18 09/22/18 21:13 21:13 21:13 WBC RBC Hgb Hct MCV MCH MCHC RDW Plt Count MPV Absolute Neuts (auto) Total Counted Neutrophils % Neutrophils % (Manual) Band Neutrophils % Lymphocytes % Lymphocytes % (Manual) Monocytes % Monocytes % (Manual) Eosinophils % Basophils % Nucleated RBC % PT with INR 11.90 INR 1.01 Sodium Potassium Chloride Carbon Dioxide Anion Gap BUN Creatinine Creat Clearance w eGFR Random Glucose Lactic Acid 1.7 Calcium Magnesium 1.9 Total Bilirubin AST ALT Alkaline Phosphatase Creatine Kinase Troponin I Total Protein Albumin Lipase 248 Stool Occult Blood Blood Type Antibody Screen 09/22/18 09/22/18 21:13 21:35 WBC RBC Hgb Hct MCV MCH MCHC RDW Plt Count MPV Absolute Neuts (auto) Total Counted Neutrophils % Neutrophils % (Manual) Band Neutrophils % Lymphocytes % Lymphocytes % (Manual) Monocytes % Monocytes % (Manual) Eosinophils % Basophils % Nucleated RBC % PT with INR INR Sodium Potassium Chloride Carbon Dioxide Anion Gap BUN Creatinine Creat Clearance w eGFR Random Glucose Lactic Acid Calcium Magnesium Total Bilirubin AST ALT Alkaline Phosphatase Creatine Kinase Troponin I Total Protein Albumin Lipase Stool Occult Blood Positive Blood Type O POSITIVE Antibody Screen DATE OF SERVICE: 2018-09-22 22:59:46 IMAGES: 626 EXAM: CT abdomen and pelvis with contrast HISTORY: History ischemic colitis COMPARISON: No prior scans have been transmitted for comparison FINDINGS: There is abnormal wall thickening/edema involving the entire left colon and sigmoid colon. There is pericolonic inflammation. Small amount of free fluid along the adjacent mesenteric folds. This represents acute colitis. Although this could be infectious or inflammatory colitis, this is a classic location for ischemic colitis and apparently the patient has such a history. No bowel obstruction. No free intraperitoneal air. No abscess. Normal liver. Prior cholecystectomy. Normal spleen. Normal pancreas. Normal adrenal glands. Nonspecific calcification in the left ovary/adnexa. Questionable significance but follow-up ultrasound recommended to evaluate the ovaries. Osseous structures are intact. Question small nodule right lower lobe. Only partially included on scan. Measures 5 mm. Recommend follow-up according to established criteria. THIS DOCUMENT HAS BEEN ELECTRONICALLY SIGNED Jacob Decker MD ASSESSMENT/PLAN: 68 yo F PMH HTN, HLD, Hypothyroidism, ischemic colitis, diverticulitis, breast cancer s/p L sided lumpectomy with radiation, and polymyalgia rheumatica?, p/w lower abdominal pain, n/v and bloody diarrhea x1d likely 2/2 [address] colitis [address] per CT scan Ischemic colitis - mild. pt has PMH of ischemic colitis. less likely infx or gastroenteritis. WBC to 17 with a left shift but afebrile and VSS. Lipase and lactate normal. CT scan prelim read shows abnormal wall thickening and edema of the entire L- colon and sigmoid colon with associated pericolonic inflammation and trace free fluid along the mesenteric folds representing acute collitis; this is a classic presentation for acute ischemic colitis per radiology. s/p 2L NS,tylenol, morphine 2mg, zofran in ED FOBT+ Qtc 442 f/u stool cx, ova parasite c diff studies, recent Z-александр use for cough NPO LR 100cc pain ctl - tylenol/morphine GI consult - spoke w/ Dr. Woo who recommends conservative management w/ IV flagyl and levaquin ESR/CRP monitor H/H rpt lactic Maintain MAP >65 O2 as needed SUZIE - likely prerenal IVF monitor Cr breast cancer c/w home dose tamoxifen polymyalgia rheumatica? hold home prednisone 2.5 as it is even questionable whether pt has poly R and pt should be kept strict NPO. HTN, HLD, Hypothyroidism hold home meds until colitis improves small nodule right lower lobe of lung - 5 mm as noted on CT A/P pt informed. f/u outpt Nonspecific calcification in the left ovary/adnexa - as noted on CT A/P Questionable significance but follow-up ultrasound recommended to evaluate the ovaries. pt informed. f/u outpt FEN LR 100cc replete prn NPO, can give tamoxifen ppx SCDs w/ active bleed protonix IVP Dispo med/surg Visit type - Emergency Visit Emergency Visit: Yes ED Registration Date: 09/23/18 Care time: The patient presented to the Emergency Department on the above date and was hospitalized for further evaluation of their emergent condition. - New Patient This patient is new to me today: Yes Date on this admission: 09/23/18 - Critical Care Critical Care patient: No
[2018-09-23] MEDS ORDERED: ACETAMINOPHEN 1000 MG/100 ML VIAL (NON FORMULARY) IVPB PRN (03:04)
[2018-09-23 07:02] LABS: BASO % 0.2 % (0-2.0); HEMATOCRIT 33.2 % (32.4-45.2); HEMOGLOBIN 11.7 GM/dL (10.7-15.3); LYMPH % 4.2 % (8-40); MCH 32.7 pg (25.7-33.7); MCHC 35.2 g/dl (32.0-36.0); MEAN CELL VOLUME 93.1 fl (80-96); MEAN PLT VOLUME 8.9 fl (7.5-11.1); MONO % 3.7 % (3.8-10.2); NEUT % 91.9 % (42.8-82.8); PLATELET COUNT 203 K/MM3 (134-434); RBC 3.57 M/mm3 (3.60-5.2); RDW 13.6 % (11.6-15.6); WHITE BLOOD COUNT 18.8 K/mm3 (4.0-10.0)
[2018-09-23 08:05] LABS: ALBUMIN 2.5 g/dl (3.4-5.0); ALK PHOS 94 U/L (45-117); ANION GAP 9 MMOL/L (8-16); BILIRUBIN,TOTAL 0.4 mg/dL (0.2-1); BLOOD UREA NITROGEN 17 mg/dL (7-18); CALCIUM 7.8 mg/dL (8.5-10.1); CHLORIDE 109 mmol/L (98-107); CO2 22 mmol/L (21-32); GLUCOSE,RANDOM 137 mg/dL (74-106); MAGNESIUM 1.8 mg/dL (1.8-2.4); PHOSPHOROUS 3.1 mg/dL (2.5-4.9); POTASSIUM 3.9 mmol/L (3.5-5.1); SGOT/AST 29 U/L (15-37); SGPT/ALT 24 U/L (13-61); SODIUM 140 mmol/L (136-145); TOT PROT 5.4 g/dl (6.4-8.2)
[2018-09-23] MEDS: PANTOPRAZOLE SODIUM 40 MG VIAL IVPUSH SCH (10:24)
[2018-09-23 10:35] LABS: ANISOCYTOSIS 0; MACROCYTOSIS 0; PLATELET ESTIMATE NORMAL
[2018-09-23] MEDS: TAMOXIFEN CITRATE 10 MG TABLET PO SCH (12:01)
[2018-09-23] MEDS ORDERED: MAGNESIUM SULF 50% (8.12 MEQ/2 ML-1 GM VIAL) IVPB ONE (12:58)
--- NOTE | 2018-09-23 13:00 | PN ---
Progress Note, Physician Chief Complaint: Pt lying in bed, somnolent, c/o fatigue/nausea. Denies any chest pain, sob - Current Medication List Current Medications: Active Medications Acetaminophen (Ofirmev Injection -) 1,000 mg IVPB Q6H PRN PRN Reason: PAIN LEVEL 6-10 Lactated Ringer's (Lactated Ringers Solution) 1,000 ml in 1,000 mls @ 100 mls/ hr IV ASDIR [facility] Last Admin: 09/23/18 01:51 Dose: 100 mls/hr Metronidazole (Flagyl 500mg Premixed Ivpb -) 500 mg in 100 mls @ 100 mls/hr IVPB Q8H-IV YEIMY Last Admin: 09/23/18 10:24 Dose: 100 mls/hr Levofloxacin (Levaquin 250 Mg Premixed Ivpb -) 250 mg in 50 mls @ 50 mls/hr IVPB ONCE ONE; Protocol Stop: 09/23/18 13:53 Levofloxacin (Levaquin 750 Mg Premixed Ivpb -) 750 mg in 150 mls @ 100 mls/hr IVPB Q2D ONE; Protocol Stop: 09/25/18 11:29 Magnesium Sulfate (Magnesium Sulfate) 1 gm IVPB ONCE ONE Stop: 09/23/18 12:59 Morphine Sulfate (Morphine Sulfate) 4 mg IVPUSH Q6H PRN PRN Reason: PAIN LEVEL 7 - 10 Pantoprazole Sodium (Protonix Iv) 40 mg IVPUSH DAILY [facility] Last Admin: 09/23/18 10:24 Dose: 40 mg Tamoxifen Citrate (Tamoxifen Citrate) 20 mg PO DAILY [facility] Last Admin: 09/23/18 12:01 Dose: 20 mg - Objective Vital Signs: Vital Signs Temperature 98.7 F 09/23/18 07:44 Pulse Rate 107 H 09/23/18 07:44 Respiratory Rate 18 09/23/18 07:44 Blood Pressure 144/75 09/23/18 07:44 O2 Sat by Pulse Oximetry (%) 95 09/23/18 07:44 Constitutional: Yes: Well Nourished, No Distress, Calm Cardiovascular: Yes: WNL, Regular Rate and Rhythm. No: Murmur Respiratory: Yes: WNL, Regular, CTA Bilaterally. No: Accessory Muscle Use, Rhonchi, SOB, Tachypnea, Wheezes Gastrointestinal: Yes: Soft, Hypoactive Bowel Sounds, Tenderness (LLQ> generalized). No: Distention Genitourinary: Yes: WNL Musculoskeletal: Yes: WNL Extremities: Yes: WNL Neurological: Yes: Oriented, Lethargy Psychiatric: Yes: Oriented Labs: CBC, BMP 09/23/18 06:30 09/23/18 06:30 INR, PTT INR 1.01 (0.83-1.09) 09/22/18 21:13 Problem List - Problems (1) Ischemic colitis Assessment/Plan: w/ abd pain, nausea, blood diarrhea CT scan, symptoms consistent with ischemic colitis per gi lactic acid wnl, wbc 18k cdiff neg/ stool culture pending Levaquin/Flagyl- renally dosed IVF GI/ID following Code(s): K55.9 - VASCULAR DISORDER OF INTESTINE, UNSPECIFIED (2) Leukocytosis Assessment/Plan: multifactorial pt on chronic prednisone for pmr monitor Code(s): D72.829 - ELEVATED WHITE BLOOD CELL COUNT, UNSPECIFIED (3) HTN (hypertension) Assessment/Plan: controlled continue home meds Code(s): I10 - ESSENTIAL (PRIMARY) HYPERTENSION Qualifiers: Hypertension type: essential hypertension Qualified Code(s): I10 - Essential (primary) hypertension (4) Hyperlipidemia Assessment/Plan: stable hold statin for now Code(s): E78.5 - HYPERLIPIDEMIA, UNSPECIFIED (5) PMR (polymyalgia rheumatica) Assessment/Plan: stable continue prednisone 2.5mg Code(s): M35.3 - POLYMYALGIA RHEUMATICA (6) Breast cancer, left breast Assessment/Plan: s/p lumpectomy continue tamoxifen followed by outpt Code(s): C50.912 - MALIGNANT NEOPLASM OF UNSPECIFIED SITE OF LEFT FEMALE BREAST Qualifiers: Breast location: overlapping sites of breast Patient sex: female (7) Hypomagnesemia Assessment/Plan: mild mg iv 1g x 1 monitor bmp Code(s): E83.42 - HYPOMAGNESEMIA
--- NOTE | 2018-09-23 14:01 | CON.GI ---
Consult Consult Specialty:: GI: For Dr. Woo Referred by:: Dr. Majano Reason for Consultation:: Colitis - History of Present Illness Chief Complaint: Abdominal pain, rectal bleeding, diarrhea History of Present Illness: 68F admitted for evaluation of abdominal pain along with diarrhea and rectal bleeding. This all began yesterday around 12pm. She states that from GI perspective, she was in her usual state of health prior to this. She was recently on Z-Pack for 4 days prior to admission for treatment of URI symptoms. She underwent colonoscopy performed by Dr. Woo 01/20/13 that revealed Ischemic Colitis involving the descending and sigmoid colon. She underwent a follow-up colonoscopy with wa 05/23/15 that revealed scarring in the sigmoid colon suspected to be secondary to prior episode of ischemic colitis. It also led to the removal of a hepatic flexure tubular adenoma. In ER WBC: 17.9, today WBC 18.8. CT scan revealed thickening and irregularity of the transverse , descending colon and sigmoid along with rectum. She denies any recent travel , sick contacts. She says that she has been to a lot of [employer] parties but otherwise denies a change in dietary habits. Her home medication list includes naprosyn as well as ASA and prednisone. - History Source History Provided By: Patient - Past Medical History Cardio/Vascular: Yes: HTN, Hyperlipdemia Gastrointestinal: Yes: Other (H/O ischemic colitis 2012, ? recurrence in 2014) Heme/Onc: Yes: Cancer (left BCA s/p lumpectomy) Endocrine: Yes: Hyperthyroidism, Hypothyroidism - Past Surgical History Past Surgical History: Yes: , Cholecystectomy - Alcohol/Substance Use Hx Alcohol Use: Yes (rare) History of Substance Use: reports: None - Smoking History Smoking history: Never smoked Have you smoked in the past 12 months: No Aproximately how many cigarettes per day: 0 If you are a former smoker, when did you quit?: 1985 - Social History ADL: Independent Place of : [facility] History of Recent Travel: No Home Medications - Allergies Allergies/Adverse Reactions: Allergies Allergy/AdvReac Type Severity Reaction Status Date / Time Sulfa (Sulfonamide Allergy Swelling Verified 12/29/17 13:04 Antibiotics) - Home Medications Home Medications: Ambulatory Orders Levothyroxine [Synthroid -] 75 mcg PO DAILY #0 tablet 08/23/13 Metoprolol Succinate [Toprol XL -] 50 mg PO DAILY #0 tab.sr.24h 08/23/13 Lisinopril [Prinivil] 10 mg PO DAILY 05/22/15 Lansoprazole [Prevacid -] 15 mg PO DAILY 05/23/15 Simvastatin [Zocor -] 10 mg PO HS 05/23/15 Aspirin [ASA -] 81 mg PO DAILY 12/29/17 Calcium Carbonate [Calcium] 500 mg PO BID 12/29/17 Naproxen 500 mg PO BID PRN #20 tablet 03/01/18 Tramadol HCl [Ultram] 50 mg PO TID PRN #15 tablet MDD 3 tabs 03/01/18 Pantoprazole Sodium [Protonix -] 20 mg PO DAILY #30 tablet.ec 03/03/18 predniSONE [Deltasone -] 10 mg PO DAILY #30 tablet 03/03/18 Family Disease History - Family Disease History Family Disease History: CA: Mother (breast 42 ), Brother (prostate ca 58 living) Review of Systems - Review of Systems Constitutional: reports: Chills. denies: Unintentional Wgt. Loss Cardiovascular: denies: Chest Pain Respiratory: reports: Cough Gastrointestinal: reports: Abdominal Pain, Diarrhea, Rectal Bleeding. denies: Constipation Physical Exam-GI Vital Signs: Vital Signs Temperature 99.8 F rectal 09/23/18 13:30 Constitutional: Yes: Calm Eyes: No: Sclera Icterus Cardiovascular: Yes: Regular Rate and Rhythm. No: Murmur Respiratory: Yes: CTA Bilaterally Gastrointestinal Inspection: Yes: Scars (healed trochar scars). No: Distention ...Auscultate: Yes: Normoactive Bowel Sounds ...Palpate: Yes: Guarding, Soft, Tenderness (TTP diffusely, particularly left side and pelvis). No: Tenderness, Rebound ...Percussion: No: Tympanitic ...Rectal Exam: Yes: Other (blood tingied liquid stool) Edema: No (No LE edema) Neurological: Yes: Alert, Oriented Labs: CBC, BMP 09/23/18 06:30 09/23/18 06:30 INR, PTT INR 1.01 (0.83-1.09) 09/22/18 21:13 Hepatic Panel Total Bilirubin 0.4 mg/dL (0.2-1) 12/28/18 06:30 AST 29 U/L (15-37) 09/23/18 06:30 ALT 24 U/L (13-61) 09/23/18 06:30 Alkaline Phosphatase 94 U/L (45-117) 09/23/18 06:30 Albumin 2.5 g/dl (3.4-5.0) L 09/23/18 06:30 Microbiology: 09/22/18 22:34 Stool Clostridium difficile Antigen (KARLA) - negative 09/22/18 22:34 Stool Clostridium difficile Toxin Assay - negative Stool Culture: Pending Imaging - Results Cat Scan: Report Reviewed, Image Reviewed Problem List - Problems (1) Ischemic colitis Assessment/Plan: By acuity of the onset of her abdominal complaints, and distribution of the colitis noted on CT scan, I suspect that Ms. Welch has recurrent ischemic colitis. C. Diff Ag/Toxin negative and stool culture is pending She is currently on Levaquin/Flagyl. In Ischemic colitis, ABx useful to prevent bacterial translocation and to cover for potential infectious source. I have placed and ID consult to help with the continued Abx coverage If no improvement with supportive measures and worsening leukocytosis (she is on chronic prednisone therapy so not sure how much of her leukocytosis is secondary to this), may need more urgent flex sig. to assess for necrosis. Surgical consult was placed to have on standby if Ms. Welch's clinical status deteriorates Continue IV hydration Avoid NSAID therapy now and after resolution as they can precipitate ischemic colitis CBC/BMP/CRP in AM Code(s): K55.9 - VASCULAR DISORDER OF INTESTINE, UNSPECIFIED
[2018-09-23] MEDS: morphine SULFATE 4 MG/ML VIAL IVPUSH PRN ×2 (14:51→21:43)
[2018-09-23] MEDS: ONDANSETRON 4 MG/2 ML VIAL IVPUSH PRN ×2 (15:21→21:47)
--- NOTE | 2018-09-23 16:17 | PN ---
Progress Note (short form) - Note Progress Note: ID Consult dictated Probable recurrent ischemic colitis GI bleeding Leukocytosis- multifactorial Await stool studies Continue levaquin/ flagyl
--- NOTE | 2018-09-23 17:48 | CONS ---
DATE OF CONSULTATION: DATE OF DICTATION: 09/23/2018 INFECTIOUS DISEASE CONSULTATION HISTORY OF PRESENT ILLNESS: A 68-year-old female evaluated for colitis. The patient was admitted to the hospital on September 23, 2018. She presented with bloody diarrhea. Patient reports that one day prior to admission she developed onset of crampy abdominal pain primarily in the lower quadrants, left greater than right, associated with frankly bloody diarrhea. She also experienced some nausea, vomiting, and chills. She presented to the emergency room, where she was ill appearing. She had the recurrent nausea, vomiting in the emergency room and CAT scan of the abdomen and pelvis was performed, and showed thickening of a large portion of the colon involving transverse, descending, and sigmoid colon as well as the rectum. Cultures were obtained. She was empirically treated with Levaquin and Flagyl. Patient has a history of ischemic colitis in the past. She had a colonoscopy in December of 2012 which showed ischemic colitis involved in the descending and sigmoid colon. The patient lives at home with her who is well. No ill contacts. She attended several holiday parties, however is unaware of any other guests who developed gastrointestinal illnesses. She did take a 5-day course of Zithromax for an upper respiratory tract infection within the last week or so. No recent travel. PAST MEDICAL HISTORY: Positive for ischemic colitis, history of breast cancer status post lumpectomy, hypertension, hyperlipidemia, polymyalgia rheumatica for which she is on tapering doses of prednisone, presently 2.5 mg, history of hypothyroidism. ALLERGIES: SULFA. Patient develops a rash. MEDICATION: At the present time include Zofran, prednisone, lisinopril, Levaquin, Flagyl, tamoxifen, Toprol, Protonix, Synthroid. SOCIAL HISTORY: Lives at home with her significant other who is well. Nonsmoker. Occasional ETOH. SYSTEMS REVIEW: Neurologic: No loss of consciousness, seizure activity, focal weakness. Cardiac: Negative for chest pain or palpitations. Respiratory: Negative for cough or sputum production. Gastrointestinal: As per HPI. Genitourinary: Negative for urinary tract infection. LABORATORY DATA: White count 18.8 and 91 neutrophils, 4 lymphocytes, 3 monocytes. Hematocrit 33.2, platelet count 203. BUN 17, creatinine 1.0. Liver enzymes normal. Urinalysis pending. Stool C. difficile negative. Stool culture pending. PHYSICAL EXAMINATION: General: On exam, she is ill appearing secondary to abdominal discomfort. Vital signs: Temperature 99.6, blood pressure 151/77, pulse 113 regular, respirations 18 per minute. HEENT: Sclerae anicteric. Cardiovascular: Heart sounds S1, S2. Lungs: Clear. Abdomen: Hypoactive bowel sounds. Soft. There is tenderness present lower quadrants bilaterally, left greater than right. No mass, rebound, rigidity. Extremities: Negative for edema. IMPRESSION: 1. Probable recurrent ischemic colitis. 2. Lower gastrointestinal bleeding. 3. Leukocytosis, multifactorial (infection, inflammation, tapering doses of steroids). Await stool studies. Continue empiric Levaquin and Flagyl. Case discussed with GI. Will follow. Thank you for the kind referral. ABDIRAHMAN ALLEN M.D. [id number]
--- NOTE | 2018-09-23 19:12 | EKG ---
Test Reason : Blood Pressure : / mmHG Vent. Rate : 085 BPM Atrial Rate : 085 BPM P-R Int : 146 ms QRS Dur : 078 ms QT Int : 372 ms P-R-T Axes : 049 026 037 degrees QTc Int : 442 ms NORMAL SINUS RHYTHM ANTERIOR INFARCT , AGE UNDETERMINED ABNORMAL ECG WHEN COMPARED WITH ECG OF 01-MAR-2018 14:27, NO SIGNIFICANT CHANGE WAS FOUND Confirmed by DEJAN BABB MD ([id number]) on 09/23/2018 7:11:46 PM Referred By: Confirmed By:DEJAN BABB MD
[2018-09-23 21:23] LABS: URINE APPEARANCE CLEAR; URINE BILIRUBIN NEGATIVE (<2.0 mg/dL); URINE COLOR YELLOW; URINE GLUCOSE (UA) NEGATIVE (NEGATIVE); URINE KETONE NEGATIVE (NEGATIVE); URINE LEUK ESTERASE TRACE (NEGATIVE); URINE NITRITE NEGATIVE (NEGATIVE); URINE PROTEIN NEGATIVE (NEGATIVE); URINE UROBILINOGEN NEGATIVE mg/dL (0.2-1.0)
[2018-09-23 21:29] LABS: EPI CELLS RARE /HPF (FEW); URINE MUCUS RARE
[2018-09-24] MEDS: LACTATED RINGERS SOLUTION 1,000 ML/1,000 ML INFUS.BAG IV SCH ×2 (02:20→17:15)
[2018-09-24] MEDS: morphine SULFATE 4 MG/ML VIAL IVPUSH PRN ×4 (03:31→22:30)
[2018-09-24] MEDS: ONDANSETRON 4 MG/2 ML VIAL IVPUSH PRN ×3 (03:32→22:30)
[2018-09-24] MEDS: LEVOTHYROXINE NA 75 MCG TABLET (FP) PO SCH (06:20)
[2018-09-24 07:19] LABS: BASO % 0.1 % (0-2.0); EOS % 0.2 % (0-4.5); HEMATOCRIT 39.8 % (32.4-45.2); HEMOGLOBIN 12.8 GM/dL (10.7-15.3); LYMPH % 5.5 % (8-40); MCH 29.2 pg (25.7-33.7); MCHC 32.2 g/dl (32.0-36.0); MEAN CELL VOLUME 90.6 fl (80-96); MEAN PLT VOLUME 9.8 fl (7.5-11.1); MONO % 5.8 % (3.8-10.2); NEUT % 88.4 % (42.8-82.8); PLATELET COUNT 256 K/MM3 (134-434); RBC 4.39 M/mm3 (3.60-5.2); RDW 14.6 % (11.6-15.6); WHITE BLOOD COUNT 15.9 K/mm3 (4.0-10.0)
[2018-09-24 07:34] LABS: ANION GAP 8 MMOL/L (8-16); BLOOD UREA NITROGEN 12 mg/dL (7-18); CALCIUM 7.7 mg/dL (8.5-10.1); CHLORIDE 108 mmol/L (98-107); CO2 24 mmol/L (21-32); CREATININE 0.7 mg/dL (0.55-1.3); GLUCOSE,RANDOM 97 mg/dL (74-106); MAGNESIUM 1.7 mg/dL (1.8-2.4); POTASSIUM 3.6 mmol/L (3.5-5.1); SODIUM 140 mmol/L (136-145)
[2018-09-24] MEDS: predniSONE 5 MG TABLET (UD) PO SCH (10:12)
[2018-09-24] MEDS: TAMOXIFEN CITRATE 10 MG TABLET PO SCH (10:13)
[2018-09-24] MEDS: LISINOPRIL 10 MG TABLET (FP) PO SCH (10:13)
[2018-09-24] MEDS: PANTOPRAZOLE SODIUM 40 MG VIAL IVPUSH SCH (10:13)
--- NOTE | 2018-09-24 11:14 | PN ---
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 Vital Signs Period Temp Pulse Resp BP Sys/Mari Pulse Ox Last 24 Hr 97.7 F-99.6 F 89-113 18-20 117-154/57-78 95 cor-rrr lungs clear abd soft,ndiffuse discomfort to palpation ext no edema CBC, BMP 09/24/18 06:00 09/24/18 06:00 Microbiology 09/22/18 22:34 Stool Gram Stain - Final 09/22/18 22:34 Stool Salmonella/Shigella Culture - Preliminary NO ENTERIC PATHOGENS, 24 HOURS, ON PRIMARY PLATES 09/22/18 22:34 Stool Yersinia Culture - Preliminary NO ENTERIC PATHOGENS, 24 HOURS, ON PRIMARY PLATES 09/22/18 22:34 Stool Vibrio Culture - Preliminary NO ENTERIC PATHOGENS, 24 HOURS, ON PRIMARY PLATES 09/22/18 22:34 Stool Escherichia coli 0157 Culture - Preliminary NO ENTERIC PATHOGENS, 24 HOURS, ON PRIMARY PLATES 09/22/18 22:34 Stool Clostridium difficile Antigen (KARLA) - Final 09/22/18 22:34 Stool Clostridium difficile Toxin Assay - Final Current Medications Acetaminophen (Ofirmev Injection -) 1,000 mg IVPB Q6H PRN PRN Reason: PAIN LEVEL 6-10 Lactated Ringer's (Lactated Ringers Solution) 1,000 ml in 1,000 mls @ 100 mls/ hr IV ASDIR [facility] Last Admin: 09/24/18 02:20 Dose: Not Given Metronidazole (Flagyl 500mg Premixed Ivpb -) 500 mg in 100 mls @ 100 mls/hr IVPB Q8H-IV [facility] Last Admin: 09/24/18 10:12 Dose: 100 mls/hr Levofloxacin (Levaquin 500 Mg Premixed Ivpb -) 500 mg in 100 mls @ 100 mls/hr IVPB DAILY [facility]; Protocol Last Admin: 09/24/18 10:12 Dose: 100 mls/hr Levothyroxine Sodium (Synthroid -) 75 mcg PO DAILY@0700 [facility] Last Admin: 09/24/18 06:20 Dose: 75 mcg Lisinopril (Prinivil) 10 mg PO DAILY [facility] Last Admin: 09/24/18 10:13 Dose: Not Given Metoprolol Succinate (Toprol Xl -) 50 mg PO DAILY [facility] Last Admin: 09/24/18 10:14 Dose: Not Given Morphine Sulfate (Morphine Sulfate) 4 mg IVPUSH Q6H PRN PRN Reason: PAIN LEVEL 7 - 10 Last Admin: 09/24/18 03:31 Dose: 4 mg Ondansetron HCl (Zofran Injection) 4 mg IVPUSH Q6H PRN PRN Reason: NAUSEA AND/OR VOMITING Last Admin: 09/24/18 03:32 Dose: 4 mg Pantoprazole Sodium (Protonix Iv) 40 mg IVPUSH DAILY [facility] Last Admin: 09/24/18 10:13 Dose: 40 mg Prednisone (Deltasone -) 2.5 mg PO DAILY [facility] Last Admin: 09/24/18 10:12 Dose: 2.5 mg Tamoxifen Citrate (Tamoxifen Citrate) 20 mg PO DAILY [facility] Last Admin: 09/24/18 10:13 Dose: 20 mg a/p probable ischemic colitis- patient reports improvement in symptoms continue levaquin/flagyl continue IVF f/u GI f/u stool studies
--- NOTE | 2018-09-24 13:40 | CONSULT ---
Consult Consult Specialty:: General Surgery Reason for Consultation:: Abdominal Pain - History of Present Illness Chief Complaint: Abdominal pain and diarrhea History of Present Illness: 68 yo F PMH HTN, HLD, Hypothyroidism, ischemic colitis, diverticulitis, breast cancer s/p L sided lumpectomy with radiation (december 2017), and polymyalgia rheumatica?, p/w lower abdominal pain, n/v and bloody diarrhea for 1 day. She reports she has had about 10 episodes of bloody diarrhea and about 4 episodes of nonbloody, watery emesis today. She reports the abdominal pain as 10/10 constant cramping non radiating, located throughout the abdomen with most acuity in the lower abdomen bilaterally. She reportedly had bloody diarrhea 2 years ago with similar quality abdominal pain. She is followed by Dr. Woo and last colonoscopy was 2 years ago, which was normal, no persoanl history of colon cancer or inflammatory bowel disease. She has one cousin that with colon cancer. Of note, she had cough this past week and was given a Z-pack. Took naproxen yesterday. Drank eggnog yesterday at [employer] [place] and ate turkey last night. No other family members/friends have been sick from food w/ GI symptoms. Denies the following: fever, chills, visual changes, JANSEN, ears/nose/throat pain, cp, SOB, dysuria, hematuria, and leg pain/swelling. Denies eating raw meats, changes in diet, recent travel, sick contacts. we were asked to assess - History Source History Provided By: Patient, Medical Record Limitations to Obtaining History: No Limitations - Past Medical History Cardio/Vascular: Yes: HTN, Hyperlipdemia Gastrointestinal: Yes: Other (H/O ischemic colitis 2012, ? recurrence in 2014) Endocrine: Yes: Hyperthyroidism, Hypothyroidism - Past Surgical History Past Surgical History: Yes: , Cholecystectomy - Alcohol/Substance Use Hx Alcohol Use: Yes (rare) History of Substance Use: reports: None - Smoking History Smoking history: Never smoked Have you smoked in the past 12 months: No Aproximately how many cigarettes per day: 0 If you are a former smoker, when did you quit?: 1985 - Social History ADL: Independent History of Recent Travel: No Home Medications - Allergies Allergies/Adverse Reactions: Allergies Allergy/AdvReac Type Severity Reaction Status Date / Time Sulfa (Sulfonamide Allergy Swelling Verified 12/29/17 13:04 Antibiotics) - Home Medications Home Medications: Ambulatory Orders Levothyroxine [Synthroid -] 75 mcg PO DAILY #0 tablet 08/23/13 Metoprolol Succinate [Toprol XL -] 50 mg PO DAILY #0 tab.sr.24h 08/23/13 Lisinopril [Prinivil] 10 mg PO DAILY 05/22/15 Lansoprazole [Prevacid -] 15 mg PO DAILY 05/23/15 Simvastatin [Zocor -] 10 mg PO HS 05/23/15 Aspirin [ASA -] 81 mg PO DAILY 12/29/17 Calcium Carbonate [Calcium] 500 mg PO BID 12/29/17 Naproxen 500 mg PO BID PRN #20 tablet 03/01/18 Tramadol HCl [Ultram] 50 mg PO TID PRN #15 tablet MDD 3 tabs 03/01/18 Pantoprazole Sodium [Protonix -] 20 mg PO DAILY #30 tablet.ec 03/03/18 predniSONE [Deltasone -] 10 mg PO DAILY #30 tablet 03/03/18 Family Disease History - Family Disease History Family Disease History: CA: Mother (breast 42 ), Brother (prostate ca 58 living) Review of Systems - Review of Systems Constitutional: denies: Chills, Fever Eyes: denies: Blind Spots, Recent Change in Vision HENT: denies: Difficult Swallowing, Toothache Neck: denies: Decreased ROM, Pain on Movement Cardiovascular: denies: Chest Pain, Palpitations Respiratory: denies: Cough, SOB Gastrointestinal: reports: Abdominal Pain. denies: Constipation, Diarrhea Genitourinary: denies: Dysuria, Flank Pain Breasts: reports: No Symptoms Reported. denies: Pain Musculoskeletal: denies: Back Pain, Muscle Pain Integumentary: denies: Bruising, Lesions, Lump Neurological: denies: Confusion, Dizziness Endocrine: denies: Unexplained Weight Gain, Unexplained Weight Loss Hematology/Lymphatic: denies: Easily Bruised, Excessive Bleeding Psychiatric: denies: Anxiety, Depression Physical Exam Vital Signs: Vital Signs Temperature 98.5 F 09/24/18 10:00 Pulse Rate 89 09/24/18 10:00 Respiratory Rate 18 09/24/18 10:00 Blood Pressure 122/80 09/24/18 10:00 O2 Sat by Pulse Oximetry (%) 95 09/23/18 21:00 Vital Signs Period Temp Pulse Resp BP Sys/Mari Pulse Ox Last 24 Hr 97.7 F-98.5 F 89-102 18-20 117-151/57-80 95 Constitutional: Yes: Well Nourished, No Distress, Calm Eyes: Yes: Conjunctiva Clear, EOM Intact HENT: Yes: Atraumatic, Normocephalic Neck: Yes: Supple, Trachea Midline Cardiovascular: Yes: S1, S2. No: Regular Rate and Rhythm Respiratory: Yes: Regular, CTA Bilaterally Gastrointestinal: Yes: Normal Bowel Sounds, Soft, Tenderness (LLQ and RLQ). No : Tenderness, Rebound, Vomiting ...Rectal Exam: Yes: Deferred Renal/: No: CVA Tenderness - Left, CVA Tenderness - Right Musculoskeletal: No: Muscle Pain, Muscle Weakness Edema: No Peripheral Pulses WNL: Yes Integumentary: No: Bruising, Jaundice, Pressure Ulcer Neurological: Yes: Alert, Oriented, Tremors Psychiatric: Yes: Alert, Oriented Labs: CBC, BMP 09/24/18 06:00 09/24/18 06:00 Imaging - Results Cat Scan: Report Reviewed, Image Reviewed (transverse to rectum is inflames with concentric wall thickening) Problem List - Problems (1) Ischemic colitis, enteritis, or enterocolitis Assessment/Plan: 68yo female MMP history of breast cancer and radiation presents with acute colitis of unspecified eitiology. No acute surgical intervention is indicated NPO and IVF hydration Supportive medical management tumor markers ID consult for IV antibiotics GI evaluation for repeat colonoscopy and biopsy post episode IBD (Crohns and ulcerative cololits) workup Discussed the possibility of elective subtotal colectomy will follow biopsy results Thank you for the opportunity to participate in the care of this patient. Code(s): K55.9 - VASCULAR DISORDER OF INTESTINE, UNSPECIFIED (2) Abdominal pain in female Code(s): R10.9 - UNSPECIFIED ABDOMINAL PAIN (3) PMR (polymyalgia rheumatica) Code(s): M35.3 - POLYMYALGIA RHEUMATICA (4) Breast cancer, left breast Code(s): C50.912 - MALIGNANT NEOPLASM OF UNSPECIFIED SITE OF LEFT FEMALE BREAST Qualifiers: Breast location: overlapping sites of breast Patient sex: female (5) HTN (hypertension) Code(s): I10 - ESSENTIAL (PRIMARY) HYPERTENSION Qualifiers: Hypertension type: essential hypertension Qualified Code(s): I10 - Essential (primary) hypertension (6) Polyarthralgia Code(s): M25.50 - PAIN IN UNSPECIFIED JOINT
--- NOTE | 2018-09-24 15:33 | PN ---
GI Progress Note Subjective: GI NOte: Still having abdominal cramps but no further bleeding. Thirsty - Objective Vital Signs: Vital Signs Temperature 98.5 F 09/24/18 10:00 Pulse Rate 89 09/24/18 10:00 Respiratory Rate 18 09/24/18 10:00 Blood Pressure 122/80 09/24/18 10:00 O2 Sat by Pulse Oximetry (%) 95 09/23/18 21:00 Laboratory Tests 09/22/18 09/24/18 21:13 06:00 WBC 15.9 H Hgb 13.6 12.8 Constitutional: Calm ...Auscultate: Yes: Normoactive Bowel Sounds ...Palpate: Yes: Soft, Other (nontender) Labs: CBC, BMP 09/24/18 06:00 09/24/18 06:00 INR, PTT INR 1.01 (0.83-1.09) 09/22/18 21:13 Problem List - Problems (1) Ischemic colitis, enteritis, or enterocolitis Assessment/Plan: Resolving ischemic colitis. Will try clear liquids Code(s): K55.9 - VASCULAR DISORDER OF INTESTINE, UNSPECIFIED (2) History of adenomatous polyp of colon Code(s): Z86.010 - PERSONAL HISTORY OF COLONIC POLYPS (3) Bloody diarrhea Code(s): R19.7 - DIARRHEA, UNSPECIFIED (4) Breast cancer, left breast Code(s): C50.912 - MALIGNANT NEOPLASM OF UNSPECIFIED SITE OF LEFT FEMALE BREAST Qualifiers: Breast location: overlapping sites of breast Patient sex: female
[2018-09-24] MEDS ORDERED: MAGNESIUM SULF 50% (8.12 MEQ/2 ML-1 GM VIAL) IVPB ONE (16:04)
[2018-09-24] MEDS ORDERED: POTASSIUM PHOSPHATE 16 MM in SODIUM CHLORIDE 250 ML IVPB ONE (16:04)
--- NOTE | 2018-09-24 16:08 | PN ---
Progress Note, Physician Chief Complaint: Ms Welch is still having nausea and abdominal pain but it is improved today. Bleeding per rectum significantly decreased. No cp or sob. - Current Medication List Current Medications: Active Medications Acetaminophen (Ofirmev Injection -) 1,000 mg IVPB Q6H PRN PRN Reason: PAIN LEVEL 6-10 Lactated Ringer's (Lactated Ringers Solution) 1,000 ml in 1,000 mls @ 100 mls/ hr IV ASDIR [facility] Last Admin: 09/24/18 02:20 Dose: Not Given Metronidazole (Flagyl 500mg Premixed Ivpb -) 500 mg in 100 mls @ 100 mls/hr IVPB Q8H-IV [facility] Last Admin: 09/24/18 10:12 Dose: 100 mls/hr Levofloxacin (Levaquin 500 Mg Premixed Ivpb -) 500 mg in 100 mls @ 100 mls/hr IVPB DAILY [facility]; Protocol Last Admin: 09/24/18 10:12 Dose: 100 mls/hr Potassium Phosphate 16 mm/ (Sodium Chloride) 255.3333 mls @ 62.5 mls/hr IVPB ONCE ONE Stop: 09/24/18 20:09 Levothyroxine Sodium (Synthroid -) 75 mcg PO DAILY@0700 [facility] Last Admin: 09/24/18 06:20 Dose: 75 mcg Lisinopril (Prinivil) 10 mg PO DAILY [facility] Last Admin: 09/24/18 10:13 Dose: Not Given Magnesium Sulfate (Magnesium Sulfate) 2 gm IVPB ONCE ONE Stop: 09/24/18 16:05 Metoprolol Succinate (Toprol Xl -) 50 mg PO DAILY [facility] Last Admin: 09/24/18 10:14 Dose: Not Given Morphine Sulfate (Morphine Sulfate) 4 mg IVPUSH Q6H PRN PRN Reason: PAIN LEVEL 7 - 10 Last Admin: 09/24/18 11:22 Dose: 4 mg Ondansetron HCl (Zofran Injection) 4 mg IVPUSH Q6H PRN PRN Reason: NAUSEA AND/OR VOMITING Last Admin: 09/24/18 03:32 Dose: 4 mg Pantoprazole Sodium (Protonix Iv) 40 mg IVPUSH DAILY [facility] Last Admin: 09/24/18 10:13 Dose: 40 mg Prednisone (Deltasone -) 2.5 mg PO DAILY [facility] Last Admin: 09/24/18 10:12 Dose: 2.5 mg Tamoxifen Citrate (Tamoxifen Citrate) 20 mg PO DAILY [facility] Last Admin: 09/24/18 10:13 Dose: 20 mg - Objective Vital Signs: Vital Signs Temperature 36.9 C 09/24/18 14:00 Pulse Rate 98 H 09/24/18 14:00 Respiratory Rate 18 09/24/18 14:00 Blood Pressure 122/64 09/24/18 14:00 O2 Sat by Pulse Oximetry (%) 95 09/23/18 21:00 Constitutional: Yes: Well Nourished, No Distress, Calm Cardiovascular: Yes: Regular Rate and Rhythm. No: Gallop, Murmur, Rub Respiratory: Yes: Regular, CTA Bilaterally. No: Rales, Rhonchi, Wheezes Gastrointestinal: Yes: Soft, Hypoactive Bowel Sounds, Tenderness (LLQ). No: Distention Extremities: Yes: WNL Edema: No Labs: CBC, BMP 09/24/18 06:00 09/24/18 06:00 INR, PTT INR 1.01 (0.83-1.09) 09/22/18 21:13 Assessment/Plan (1) Ischemic colitis Assessment/Plan: -GI and ID following -continue npo -continue levaquin and flagyl -continue hydration -general surgery consulted -continue pain control Code(s): K55.9 - VASCULAR DISORDER OF INTESTINE, UNSPECIFIED (2) Leukocytosis Assessment/Plan: -improving Code(s): D72.829 - ELEVATED WHITE BLOOD CELL COUNT, UNSPECIFIED (3) HTN (hypertension) Assessment/Plan: -continue current management Code(s): I10 - ESSENTIAL (PRIMARY) HYPERTENSION Qualifiers: Hypertension type: essential hypertension Qualified Code(s): I10 - Essential (primary) hypertension (4) Hyperlipidemia Assessment/Plan: -stable -hold statin for now Code(s): E78.5 - HYPERLIPIDEMIA, UNSPECIFIED (5) PMR (polymyalgia rheumatica) Assessment/Plan: -stable -continue prednisone 2.5mg Code(s): M35.3 - POLYMYALGIA RHEUMATICA (6) Breast cancer, left breast Assessment/Plan: -s/p lumpectomy -continue tamoxifen -followed by outpt Code(s): C50.912 - MALIGNANT NEOPLASM OF UNSPECIFIED SITE OF LEFT FEMALE BREAST Qualifiers: Breast location: overlapping sites of breast Patient sex: female (7) Hypomagnesemia Assessment/Plan: -replace magnesium -recheck in am Code(s): E83.42 - HYPOMAGNESEMIA
[2018-09-25] MEDS: LACTATED RINGERS SOLUTION 1,000 ML/1,000 ML INFUS.BAG IV SCH ×2 (04:14→11:06)
[2018-09-25] MEDS: morphine SULFATE 4 MG/ML VIAL IVPUSH PRN ×3 (04:28→20:29)
[2018-09-25] MEDS: LEVOTHYROXINE NA 75 MCG TABLET (FP) PO SCH (06:14)
[2018-09-25 07:09] LABS: BASO % 0.4 % (0-2.0); HEMATOCRIT 28.4 % (32.4-45.2); HEMOGLOBIN 9.3 GM/dL (10.7-15.3); LYMPH % 5.7 % (8-40); MCH 30.7 pg (25.7-33.7); MCHC 32.7 g/dl (32.0-36.0); MEAN CELL VOLUME 93.8 fl (80-96); MEAN PLT VOLUME 8.5 fl (7.5-11.1); MONO % 5.4 % (3.8-10.2); NEUT % 87.5 % (42.8-82.8); PLATELET COUNT 146 K/MM3 (134-434); RBC 3.02 M/mm3 (3.60-5.2); RDW 13.6 % (11.6-15.6); WHITE BLOOD COUNT 13.8 K/mm3 (4.0-10.0)
[2018-09-25 07:57] LABS: ANION GAP 7 MMOL/L (8-16); BLOOD UREA NITROGEN 11 mg/dL (7-18); CALCIUM 7.7 mg/dL (8.5-10.1); CHLORIDE 108 mmol/L (98-107); CO2 26 mmol/L (21-32); CREATININE 0.7 mg/dL (0.55-1.3); GLUCOSE,RANDOM 92 mg/dL (74-106); SODIUM 140 mmol/L (136-145)
--- NOTE | 2018-09-25 09:38 | PN ---
Progress Note (short form) - Note Progress Note: feels improved less bleeding some abdominal discomfort today after tryng clears yesterday Vital Signs Period Temp Pulse Resp BP Sys/Mari Pulse Ox Last 24 Hr 97.7 F-99.3 F 87-98 102-122/61-80 95 cor-rrr lungs clear abd +bs, mild midepigastric discomfort to palpation ext no edema CBC, BMP 09/25/18 06:00 09/25/18 06:00 Microbiology 09/22/18 22:34 Stool Gram Stain - Final 09/22/18 22:34 Stool Salmonella/Shigella Culture - Final NO GROWTH OF SALMONELLA OR SHIGELLA SPECIES OBTAINED 09/22/18 22:34 Stool Campylobacter Culture - Final NO GROWTH OF CAMPYLOBACTER SPECIES OBTAINED 09/22/18 22:34 Stool Yersinia Culture - Final NO GROWTH OF YERSINIA SPECIES OBTAINED 09/22/18 22:34 Stool Vibrio Culture - Final NO GROWTH OF VIBRIO SPECIES OBTAINED 09/22/18 22:34 Stool Escherichia coli 0157 Culture - Final NO GROWTH OF E COLI 0157 OBTAINED 09/23/18 20:30 Urine - Urine Clean Catch Urine Culture - Final NO GROWTH OBTAINED 09/22/18 22:34 Stool Clostridium difficile Antigen (KARLA) - Final 09/22/18 22:34 Stool Clostridium difficile Toxin Assay - Final a/p probable ischemic colitis- patient reports improvement in symptoms continue levaquin/flagyl continue IVF repeat cbc in am
--- NOTE | 2018-09-25 10:43 | PN ---
Progress Note, Physician Chief Complaint: Ms Welch says she had nausea and LLQ cramping after drinking liquids yesterday. Currently feeling better today, pain is improved. No cp or sob. - Current Medication List Current Medications: Active Medications Acetaminophen (Ofirmev Injection -) 1,000 mg IVPB Q6H PRN PRN Reason: PAIN LEVEL 6-10 Lactated Ringer's (Lactated Ringers Solution) 1,000 ml in 1,000 mls @ 100 mls/ hr IV [facility] Last Admin: 09/25/18 04:14 Dose: Not Given Metronidazole (Flagyl 500mg Premixed Ivpb -) 500 mg in 100 mls @ 100 mls/hr IVPB Q8H-IV [facility] Last Admin: 09/25/18 01:38 Dose: 100 mls/hr Levofloxacin (Levaquin 500 Mg Premixed Ivpb -) 500 mg in 100 mls @ 100 mls/hr IVPB DAILY [facility]; Protocol Last Admin: 09/24/18 10:12 Dose: 100 mls/hr Levothyroxine Sodium (Synthroid -) 75 mcg PO DAILY@0700 [facility] Last Admin: 09/25/18 06:14 Dose: 75 mcg Lisinopril (Prinivil) 10 mg PO DAILY [facility] Last Admin: 09/24/18 10:13 Dose: Not Given Metoprolol Succinate (Toprol Xl -) 50 mg PO DAILY [facility] Last Admin: 09/24/18 10:14 Dose: Not Given Morphine Sulfate (Morphine Sulfate) 4 mg IVPUSH Q6H PRN PRN Reason: PAIN LEVEL 7 - 10 Last Admin: 09/25/18 04:28 Dose: 4 mg Ondansetron HCl (Zofran Injection) 4 mg IVPUSH Q6H PRN PRN Reason: NAUSEA AND/OR VOMITING Last Admin: 09/24/18 22:30 Dose: 4 mg Pantoprazole Sodium (Protonix Iv) 40 mg IVPUSH DAILY [facility] Last Admin: 09/24/18 10:13 Dose: 40 mg Prednisone (Deltasone -) 2.5 mg PO DAILY [facility] Last Admin: 09/24/18 10:12 Dose: 2.5 mg Tamoxifen Citrate (Tamoxifen Citrate) 20 mg PO DAILY [facility] Last Admin: 09/24/18 10:13 Dose: 20 mg - Objective Vital Signs: Vital Signs Temperature 37.4 C 09/25/18 06:00 Pulse Rate 89 09/25/18 06:00 Respiratory Rate 18 09/25/18 06:00 Blood Pressure 102/61 09/25/18 06:00 O2 Sat by Pulse Oximetry (%) 95 09/24/18 21:00 Constitutional: Yes: Well Nourished, No Distress, Calm Cardiovascular: Yes: Regular Rate and Rhythm. No: Gallop, Murmur, Rub Respiratory: Yes: Regular, CTA Bilaterally. No: Rales, Rhonchi, Wheezes Gastrointestinal: Yes: Normal Bowel Sounds, Soft, Tenderness (LLQ, improved). No: Distention Extremities: Yes: WNL Edema: No Labs: CBC, BMP 09/25/18 06:00 09/25/18 06:00 INR, PTT INR 1.01 (0.83-1.09) 09/22/18 21:13 Assessment/Plan (1) Ischemic colitis Assessment/Plan: -GI and ID following -trial of clear liquids, caused nausea and pain -patient declining clears today, will trial again tomorrow -continue levaquin and flagyl Code(s): K55.9 - VASCULAR DISORDER OF INTESTINE, UNSPECIFIED (2) Leukocytosis Assessment/Plan: -improving Code(s): D72.829 - ELEVATED WHITE BLOOD CELL COUNT, UNSPECIFIED (3) HTN (hypertension) Assessment/Plan: -continue current management Code(s): I10 - ESSENTIAL (PRIMARY) HYPERTENSION Qualifiers: Hypertension type: essential hypertension Qualified Code(s): I10 - Essential (primary) hypertension (4) Hyperlipidemia Assessment/Plan: -stable -hold statin for now Code(s): E78.5 - HYPERLIPIDEMIA, UNSPECIFIED (5) PMR (polymyalgia rheumatica) Assessment/Plan: -stable -continue prednisone 2.5mg Code(s): M35.3 - POLYMYALGIA RHEUMATICA (6) Breast cancer, left breast Assessment/Plan: -s/p lumpectomy -continue tamoxifen -followed by outpt Code(s): C50.912 - MALIGNANT NEOPLASM OF UNSPECIFIED SITE OF LEFT FEMALE BREAST Qualifiers: Breast location: overlapping sites of breast Patient sex: female (7) Hypomagnesemia Assessment/Plan: -magnesium replaced -will check tomorrow am Code(s): E83.42 - HYPOMAGNESEMIA
[2018-09-25] MEDS: PANTOPRAZOLE SODIUM 40 MG VIAL IVPUSH SCH (10:58)
[2018-09-25] MEDS: predniSONE 5 MG TABLET (UD) PO SCH (11:01)
[2018-09-25] MEDS: LISINOPRIL 10 MG TABLET (FP) PO SCH (11:15)
[2018-09-25] MEDS: TAMOXIFEN CITRATE 10 MG TABLET PO SCH (11:15)
--- NOTE | 2018-09-25 12:13 | PN ---
GI Progress Note Subjective: GI Note ( covering for Dr Iqbal): Gets cramps when she tries the liquids but has no further bleeding. NO fever. CRP decreasing. Given the recurring nature of her ischemic colitis I will request a vascular consult of Dr Pickard. - Objective Vital Signs: Vital Signs Temperature 99.3 F 09/25/18 06:00 Pulse Rate 89 09/25/18 06:00 Respiratory Rate 18 09/25/18 06:00 Blood Pressure 102/61 09/25/18 06:00 O2 Sat by Pulse Oximetry (%) 95 09/24/18 21:00 Laboratory Tests 09/23/18 09/24/18 09/24/18 06:30 06:00 06:00 WBC 18.8 H 15.9 H Hgb 12.8 C-Reactive Protein 9.1 H Carcinoembryonic Ag 09/25/18 09/25/18 09/25/18 06:00 06:00 06:00 WBC 13.8 H Hgb 9.3 L C-Reactive Protein 5.1 H Carcinoembryonic Ag Pending Constitutional: Anxious ...Auscultate: Yes: Normoactive Bowel Sounds ...Palpate: Yes: Soft, Other (no focal tenderness) Labs: CBC, BMP 09/25/18 06:00 09/25/18 06:00 INR, PTT INR 1.01 (0.83-1.09) 09/22/18 21:13 Assessment/Plan Maintain clear liquids Vascular consultation No plan for colonoscopy at tis time as last had it 2015 Dr Iqbal will return tomorrow Problem List - Problems (1) Ischemic colitis, enteritis, or enterocolitis Assessment/Plan: Persistent colitis but bleeding has stopped. Vascular consultation Code(s): K55.9 - VASCULAR DISORDER OF INTESTINE, UNSPECIFIED (2) History of adenomatous polyp of colon Code(s): Z86.010 - PERSONAL HISTORY OF COLONIC POLYPS (3) Bloody diarrhea Code(s): R19.7 - DIARRHEA, UNSPECIFIED (4) Breast cancer, left breast Code(s): C50.912 - MALIGNANT NEOPLASM OF UNSPECIFIED SITE OF LEFT FEMALE BREAST Qualifiers: Breast location: overlapping sites of breast Patient sex: female
--- NOTE | 2018-09-25 14:35 | PN ---
Progress Note, Physician History of Present Illness: 68 yo F PMH HTN, HLD, Hypothyroidism, ischemic colitis, diverticulitis, breast cancer s/p L sided lumpectomy with radiation (december 2017), and polymyalgia rheumatica?, p/w lower abdominal pain, n/v and bloody diarrhea for 1 day. She reports she has had about 10 episodes of bloody diarrhea and about 4 episodes of nonbloody. Less blood noted in the stool. - Current Medication List Current Medications: Active Medications Acetaminophen (Ofirmev Injection -) 1,000 mg IVPB Q6H PRN PRN Reason: PAIN LEVEL 6-10 Lactated Ringer's (Lactated Ringers Solution) 1,000 ml in 1,000 mls @ 100 mls/ hr IV ASDIR [facility] Last Admin: 09/25/18 11:06 Dose: 100 mls/hr Metronidazole (Flagyl 500mg Premixed Ivpb -) 500 mg in 100 mls @ 100 mls/hr IVPB Q8H-IV [facility] Last Admin: 09/25/18 10:58 Dose: 100 mls/hr Levofloxacin (Levaquin 500 Mg Premixed Ivpb -) 500 mg in 100 mls @ 100 mls/hr IVPB DAILY [facility]; Protocol Last Admin: 09/25/18 10:58 Dose: 100 mls/hr Levothyroxine Sodium (Synthroid -) 75 mcg PO DAILY@0700 [facility] Last Admin: 09/25/18 06:14 Dose: 75 mcg Lisinopril (Prinivil) 10 mg PO DAILY [facility] Last Admin: 09/25/18 11:15 Dose: Not Given Metoprolol Succinate (Toprol Xl -) 50 mg PO DAILY [facility] Last Admin: 09/25/18 11:15 Dose: Not Given Morphine Sulfate (Morphine Sulfate) 4 mg IVPUSH Q6H PRN PRN Reason: PAIN LEVEL 7 - 10 Last Admin: 09/25/18 11:01 Dose: 4 mg Ondansetron HCl (Zofran Injection) 4 mg IVPUSH Q6H PRN PRN Reason: NAUSEA AND/OR VOMITING Last Admin: 09/24/18 22:30 Dose: 4 mg Pantoprazole Sodium (Protonix Iv) 40 mg IVPUSH DAILY [facility] Last Admin: 09/25/18 10:58 Dose: 40 mg Prednisone (Deltasone -) 2.5 mg PO DAILY [facility] Last Admin: 09/25/18 11:01 Dose: 2.5 mg Tamoxifen Citrate (Tamoxifen Citrate) 20 mg PO DAILY [facility] Last Admin: 09/25/18 11:15 Dose: 20 mg - Objective Vital Signs: Vital Signs Temperature 97.9 F 09/25/18 10:00 Pulse Rate 83 09/25/18 10:00 Respiratory Rate 16 09/25/18 10:00 Blood Pressure 112/74 09/25/18 10:00 O2 Sat by Pulse Oximetry (%) 96 09/25/18 09:00 Constitutional: Yes: Well Nourished, No Distress, Calm Eyes: Yes: Conjunctiva Clear, EOM Intact HENT: Yes: Atraumatic, Normocephalic Neck: Yes: Supple, Trachea Midline Respiratory: Yes: Regular, CTA Bilaterally Gastrointestinal: Yes: Normal Bowel Sounds, Soft. No: Tenderness Genitourinary: No: CVA Tenderness - Left, CVA Tenderness - Right Musculoskeletal: No: Muscle Pain, Muscle Weakness Extremities: No: Cool, Cyanosis Edema: No Peripheral Pulses WNL: Yes Peripheral Pulses: Left Radial: 2+, Right Radial: 2+, Left Doralis Pedis: 2+, Right Dorsalis Pedis: 2+, Left Femoral: 2+, Right Femoral: 2+ Integumentary: No: Incision, Jaundice, Rash Wound/Incision: Yes: Clean/Dry Neurological: Yes: Alert, Oriented Psychiatric: Yes: Alert, Oriented Labs: CBC, BMP 09/25/18 06:00 09/25/18 06:00 INR, PTT INR 1.01 (0.83-1.09) 09/22/18 21:13 Problem List - Problems (1) Ischemic colitis, enteritis, or enterocolitis Assessment/Plan: 68yo female MMP history of breast cancer and radiation presents with acute colitis of unspecified eitiology. No acute surgical intervention is indicated NPO and IVF hydration Supportive medical management tumor markers ID consult for IV antibiotics GI evaluation for repeat colonoscopy and biopsy post episode IBD (Crohns and ulcerative cololits) workup Discussed the possibility of elective subtotal colectomy will follow biopsy results Code(s): K55.9 - VASCULAR DISORDER OF INTESTINE, UNSPECIFIED (2) Abdominal pain in female Code(s): R10.9 - UNSPECIFIED ABDOMINAL PAIN (3) PMR (polymyalgia rheumatica) Code(s): M35.3 - POLYMYALGIA RHEUMATICA (4) Breast cancer, left breast Code(s): C50.912 - MALIGNANT NEOPLASM OF UNSPECIFIED SITE OF LEFT FEMALE BREAST Qualifiers: Breast location: overlapping sites of breast Patient sex: female (5) HTN (hypertension) Code(s): I10 - ESSENTIAL (PRIMARY) HYPERTENSION Qualifiers: Hypertension type: essential hypertension Qualified Code(s): I10 - Essential (primary) hypertension (6) Polyarthralgia Code(s): M25.50 - PAIN IN UNSPECIFIED JOINT
[2018-09-25] MEDS: ONDANSETRON 4 MG/2 ML VIAL IVPUSH PRN (20:47)
[2018-09-26] MEDS: LACTATED RINGERS SOLUTION 1,000 ML/1,000 ML INFUS.BAG IV SCH (03:36)
[2018-09-26] MEDS: ONDANSETRON 4 MG/2 ML VIAL IVPUSH PRN ×2 (03:42→21:46)
[2018-09-26] MEDS: LEVOTHYROXINE NA 75 MCG TABLET (FP) PO SCH (06:05)
[2018-09-26 07:34] LABS: BASO % 0.5 % (0-2.0); EOS % 2.2 % (0-4.5); HEMATOCRIT 29.3 % (32.4-45.2); HEMOGLOBIN 9.5 GM/dL (10.7-15.3); LYMPH % 7.3 % (8-40); MCH 30.5 pg (25.7-33.7); MCHC 32.4 g/dl (32.0-36.0); MEAN PLT VOLUME 8.7 fl (7.5-11.1); MONO % 6.1 % (3.8-10.2); NEUT % 83.9 % (42.8-82.8); PLATELET COUNT 160 K/MM3 (134-434); RBC 3.12 M/mm3 (3.60-5.2); RDW 13.2 % (11.6-15.6); WHITE BLOOD COUNT 8.8 K/mm3 (4.0-10.0)
[2018-09-26 07:57] LABS: ANION GAP 6 MMOL/L (8-16); BLOOD UREA NITROGEN 7 mg/dL (7-18); CALCIUM 7.9 mg/dL (8.5-10.1); CHLORIDE 108 mmol/L (98-107); CO2 26 mmol/L (21-32); CREATININE 0.7 mg/dL (0.55-1.3); GLUCOSE,RANDOM 105 mg/dL (74-106); MAGNESIUM 1.7 mg/dL (1.8-2.4); PHOSPHOROUS 2.1 mg/dL (2.5-4.9); POTASSIUM 3.9 mmol/L (3.5-5.1); SODIUM 140 mmol/L (136-145)
[2018-09-26] MEDS ORDERED: MAGNESIUM SULF 50% (8.12 MEQ/2 ML-1 GM VIAL) IVPB ONE (09:13)
[2018-09-26] MEDS ORDERED: PT OWN MED DRAWER 7, Y5N ONE ×2 (09:36→21:08)
[2018-09-26] MEDS: predniSONE 5 MG TABLET (UD) PO SCH (10:05)
[2018-09-26] MEDS: PANTOPRAZOLE SODIUM 40 MG VIAL IVPUSH SCH (10:05)
[2018-09-26] MEDS: TAMOXIFEN CITRATE 10 MG TABLET PO SCH (10:06)
[2018-09-26] MEDS: LISINOPRIL 10 MG TABLET (FP) PO SCH (10:06)
--- NOTE | 2018-09-26 10:56 | PN ---
Progress Note, Physician Chief Complaint: Pt lying in bed in no acute distress. tolerating clears. feels better. Denies any chest pain, sob, n/v - Current Medication List Current Medications: Active Medications Acetaminophen (Ofirmev Injection -) 1,000 mg IVPB Q6H PRN PRN Reason: PAIN LEVEL 6-10 Lactated Ringer's (Lactated Ringers Solution) 1,000 ml in 1,000 mls @ 100 mls/ hr IV ASDIR [facility] Last Admin: 09/26/18 03:36 Dose: 100 mls/hr Metronidazole (Flagyl 500mg Premixed Ivpb -) 500 mg in 100 mls @ 100 mls/hr IVPB Q8H-IV [facility] Last Admin: 09/26/18 10:07 Dose: 100 mls/hr Levofloxacin (Levaquin 500 Mg Premixed Ivpb -) 500 mg in 100 mls @ 100 mls/hr IVPB DAILY [facility]; Protocol Last Admin: 09/26/18 10:07 Dose: 100 mls/hr Levothyroxine Sodium (Synthroid -) 75 mcg PO DAILY@0700 [facility] Last Admin: 09/26/18 06:05 Dose: 75 mcg Lisinopril (Prinivil) 10 mg PO DAILY [facility] Last Admin: 09/26/18 10:06 Dose: 10 mg Metoprolol Succinate (Toprol Xl -) 50 mg PO DAILY [facility] Last Admin: 09/26/18 10:05 Dose: 50 mg Morphine Sulfate (Morphine Sulfate) 4 mg IVPUSH Q6H PRN PRN Reason: PAIN LEVEL 7 - 10 Last Admin: 09/25/18 20:29 Dose: 4 mg Ondansetron HCl (Zofran Injection) 4 mg IVPUSH Q6H PRN PRN Reason: NAUSEA AND/OR VOMITING Last Admin: 09/26/18 03:42 Dose: 4 mg Pantoprazole Sodium (Protonix Iv) 40 mg IVPUSH DAILY [facility] Last Admin: 09/26/18 10:05 Dose: 40 mg Prednisone (Deltasone -) 2.5 mg PO DAILY [facility] Last Admin: 09/26/18 10:05 Dose: 2.5 mg Tamoxifen Citrate (Tamoxifen Citrate) 20 mg PO DAILY [facility] Last Admin: 09/26/18 10:06 Dose: 20 mg - Objective Vital Signs: Vital Signs Temperature 98.2 F 09/26/18 05:00 Pulse Rate 93 H 09/26/18 05:00 Respiratory Rate 20 09/26/18 05:00 Blood Pressure 153/78 09/26/18 05:00 O2 Sat by Pulse Oximetry (%) 96 09/25/18 21:00 Constitutional: Yes: Well Nourished, No Distress, Calm Cardiovascular: Yes: WNL, Regular Rate and Rhythm. No: Murmur Respiratory: Yes: WNL, Regular, CTA Bilaterally. No: Accessory Muscle Use, SOB , Tachypnea, Wheezes Gastrointestinal: Yes: WNL, Normal Bowel Sounds, Soft, Tenderness (mild soreness ). No: Distention, Vomiting Genitourinary: Yes: WNL Extremities: Yes: WNL Edema: No Neurological: Yes: WNL, Alert, Oriented Psychiatric: Yes: WNL, Alert, Oriented Labs: CBC, BMP 09/26/18 06:15 09/26/18 06:15 INR, PTT INR 1.01 (0.83-1.09) 09/22/18 21:13 Assessment/Plan (1) Ischemic colitis Assessment/Plan: improving crp trending down hg/hct stable diet advanced to fulls Levaquin/Flagyl day 4 vascular consult pending GI/ID following Code(s): K55.9 - VASCULAR DISORDER OF INTESTINE, UNSPECIFIED (2) Leukocytosis Assessment/Plan: resolved pt on chronic prednisone for pmr Code(s): D72.829 - ELEVATED WHITE BLOOD CELL COUNT, UNSPECIFIED (3) HTN (hypertension) Assessment/Plan: controlled continue home meds Code(s): I10 - ESSENTIAL (PRIMARY) HYPERTENSION Qualifiers: Hypertension type: essential hypertension Qualified Code(s): I10 - Essential (primary) hypertension (4) Hyperlipidemia Assessment/Plan: stable hold statin for now Code(s): E78.5 - HYPERLIPIDEMIA, UNSPECIFIED (5) PMR (polymyalgia rheumatica) Assessment/Plan: stable continue prednisone 2.5mg Code(s): M35.3 - POLYMYALGIA RHEUMATICA (6) Breast cancer, left breast Assessment/Plan: s/p lumpectomy continue tamoxifen followed by outpt Code(s): C50.912 - MALIGNANT NEOPLASM OF UNSPECIFIED SITE OF LEFT FEMALE BREAST Qualifiers: Breast location: overlapping sites of breast Patient sex: female (7) Hypomagnesemia Assessment/Plan: mild mg iv 2g x 1 monitor bmp Code(s): E83.42 - HYPOMAGNESEMIA
--- NOTE | 2018-09-26 11:49 | PN ---
Progress Note, Physician Chief Complaint: GI consult service follow up for abdominal pain, bloody diarrhea with history of ischemic colitis, likely a new manifestation of same. History of Present Illness: Did well in last 24 hours. Tolerating clears with only some nausea. No abdominal pain. No blood in stool. No diarrhea. Ambulating. Stool studies negative and CT with changes consistent with ischemic, infectious or inflammatory colitis. - Current Medication List Current Medications: Active Medications Acetaminophen (Ofirmev Injection -) 1,000 mg IVPB Q6H PRN PRN Reason: PAIN LEVEL 6-10 Metronidazole (Flagyl 500mg Premixed Ivpb -) 500 mg in 100 mls @ 100 mls/hr IVPB Q8H-IV [facility] Last Admin: 09/26/18 10:07 Dose: 100 mls/hr Levofloxacin (Levaquin 500 Mg Premixed Ivpb -) 500 mg in 100 mls @ 100 mls/hr IVPB DAILY [facility]; Protocol Last Admin: 09/26/18 10:07 Dose: 100 mls/hr Levothyroxine Sodium (Synthroid -) 75 mcg PO DAILY@0700 [facility] Last Admin: 09/26/18 06:05 Dose: 75 mcg Lisinopril (Prinivil) 10 mg PO DAILY [facility] Last Admin: 09/26/18 10:06 Dose: 10 mg Metoprolol Succinate (Toprol Xl -) 50 mg PO DAILY [facility] Last Admin: 09/26/18 10:05 Dose: 50 mg Morphine Sulfate (Morphine Sulfate) 4 mg IVPUSH Q6H PRN PRN Reason: PAIN LEVEL 7 - 10 Last Admin: 09/25/18 20:29 Dose: 4 mg Ondansetron HCl (Zofran Injection) 4 mg IVPUSH Q6H PRN PRN Reason: NAUSEA AND/OR VOMITING Last Admin: 09/26/18 03:42 Dose: 4 mg Pantoprazole Sodium (Protonix Iv) 40 mg IVPUSH DAILY [facility] Last Admin: 09/26/18 10:05 Dose: 40 mg Prednisone (Deltasone -) 2.5 mg PO DAILY [facility] Last Admin: 09/26/18 10:05 Dose: 2.5 mg Tamoxifen Citrate (Tamoxifen Citrate) 20 mg PO DAILY [facility] Last Admin: 09/26/18 10:06 Dose: 20 mg - Objective Vital Signs: Vital Signs Temperature 98.2 F 09/26/18 05:00 Pulse Rate 93 H 09/26/18 05:00 Respiratory Rate 20 09/26/18 05:00 Blood Pressure 153/78 09/26/18 05:00 O2 Sat by Pulse Oximetry (%) 96 09/25/18 21:00 Constitutional: Yes: Well Nourished, No Distress Gastrointestinal: Yes: Normal Bowel Sounds, Soft. No: Tenderness Labs: CBC, BMP 09/26/18 06:15 09/26/18 06:15 INR, PTT INR 1.01 (0.83-1.09) 09/22/18 21:13 Problem List - Problems (1) Abdominal pain in female Assessment/Plan: Resolved, likely from ischemic changes. Code(s): R10.9 - UNSPECIFIED ABDOMINAL PAIN (2) Colitis Assessment/Plan: Clinically resolving, likely ischemic. Consider CTA/MRA or other vascular study as appropriate. Code(s): K52.9 - NONINFECTIVE GASTROENTERITIS AND COLITIS, UNSPECIFIED (3) Ischemic colitis Assessment/Plan: Clinically improving. Code(s): K55.9 - VASCULAR DISORDER OF INTESTINE, UNSPECIFIED
--- NOTE | 2018-09-26 14:09 | PN ---
Progress Note, Physician History of Present Illness: 68 yo F PMH HTN, HLD, Hypothyroidism, ischemic colitis, diverticulitis, breast cancer s/p L sided lumpectomy with radiation (december 2017), and polymyalgia rheumatica?, p/w lower abdominal pain, n/v and bloody diarrhea for 1 day. She reports she has had about 10 episodes of bloody diarrhea and about 4 episodes of nonbloody. Less blood noted in the stool. - Current Medication List Current Medications: Active Medications Acetaminophen (Ofirmev Injection -) 1,000 mg IVPB Q6H PRN PRN Reason: PAIN LEVEL 6-10 Metronidazole (Flagyl 500mg Premixed Ivpb -) 500 mg in 100 mls @ 100 mls/hr IVPB Q8H-IV [facility] Last Admin: 09/26/18 10:07 Dose: 100 mls/hr Levofloxacin (Levaquin 500 Mg Premixed Ivpb -) 500 mg in 100 mls @ 100 mls/hr IVPB DAILY [facility]; Protocol Last Admin: 09/26/18 10:07 Dose: 100 mls/hr Levothyroxine Sodium (Synthroid -) 75 mcg PO DAILY@0700 [facility] Last Admin: 09/26/18 06:05 Dose: 75 mcg Lisinopril (Prinivil) 10 mg PO DAILY [facility] Last Admin: 09/26/18 10:06 Dose: 10 mg Metoprolol Succinate (Toprol Xl -) 50 mg PO DAILY [facility] Last Admin: 09/26/18 10:05 Dose: 50 mg Morphine Sulfate (Morphine Sulfate) 4 mg IVPUSH Q6H PRN PRN Reason: PAIN LEVEL 7 - 10 Last Admin: 09/25/18 20:29 Dose: 4 mg Ondansetron HCl (Zofran Injection) 4 mg IVPUSH Q6H PRN PRN Reason: NAUSEA AND/OR VOMITING Last Admin: 09/26/18 03:42 Dose: 4 mg Pantoprazole Sodium (Protonix Iv) 40 mg IVPUSH DAILY [facility] Last Admin: 09/26/18 10:05 Dose: 40 mg Prednisone (Deltasone -) 2.5 mg PO DAILY [facility] Last Admin: 09/26/18 10:05 Dose: 2.5 mg Tamoxifen Citrate (Tamoxifen Citrate) 20 mg PO DAILY [facility] Last Admin: 09/26/18 10:06 Dose: 20 mg - Objective Vital Signs: Vital Signs Temperature 98.6 F 09/26/18 13:34 Pulse Rate 87 09/26/18 13:34 Respiratory Rate 20 09/26/18 13:34 Blood Pressure 160/92 09/26/18 13:34 O2 Sat by Pulse Oximetry (%) 96 09/25/18 21:00 Constitutional: Yes: Well Nourished, No Distress, Calm Eyes: Yes: Conjunctiva Clear, EOM Intact HENT: Yes: Atraumatic, Normocephalic Neck: Yes: Supple, Trachea Midline Cardiovascular: Yes: Regular Rate and Rhythm, S1, S2 Respiratory: Yes: Regular, CTA Bilaterally Gastrointestinal: Yes: Normal Bowel Sounds, Soft, Abdomen, Obese, Tenderness. No: Tenderness, Epigastrium, Tenderness, Rebound ...Rectal Exam: Yes: Deferred Genitourinary: No: CVA Tenderness - Left, CVA Tenderness - Right Extremities: No: Cool, Cyanosis Edema: No Peripheral Pulses WNL: Yes Peripheral Pulses: Left Radial: 2+, Right Radial: 2+, Left Doralis Pedis: 2+, Right Dorsalis Pedis: 2+, Left Femoral: 2+, Right Femoral: 2+ Integumentary: No: Jaundice, Tenting, Onychomycosis Wound/Incision: No: Well Approximated Neurological: Yes: Alert, Oriented Psychiatric: Yes: Alert, Oriented Labs: CBC, BMP 09/26/18 06:15 09/26/18 06:15 INR, PTT INR 1.01 (0.83-1.09) 09/22/18 21:13 Problem List - Problems (1) Ischemic colitis, enteritis, or enterocolitis Assessment/Plan: 68yo female MMP history of breast cancer and radiation presents with acute colitis of unspecified eitiology. No acute surgical intervention is indicated NPO and IVF hydration Supportive medical management tumor markers ID consult for IV antibiotics GI evaluation for repeat colonoscopy and biopsy post episode IBD (Crohns and ulcerative cololits) workup Discussed the possibility of elective subtotal colectomy will follow biopsy results Code(s): K55.9 - VASCULAR DISORDER OF INTESTINE, UNSPECIFIED (2) Abdominal pain in female Code(s): R10.9 - UNSPECIFIED ABDOMINAL PAIN (3) PMR (polymyalgia rheumatica) Code(s): M35.3 - POLYMYALGIA RHEUMATICA (4) Breast cancer, left breast Code(s): C50.912 - MALIGNANT NEOPLASM OF UNSPECIFIED SITE OF LEFT FEMALE BREAST Qualifiers: Breast location: overlapping sites of breast Patient sex: female (5) HTN (hypertension) Code(s): I10 - ESSENTIAL (PRIMARY) HYPERTENSION Qualifiers: Hypertension type: essential hypertension Qualified Code(s): I10 - Essential (primary) hypertension (6) Polyarthralgia Code(s): M25.50 - PAIN IN UNSPECIFIED JOINT
[2018-09-27 00:06] LABS: CARCINOEMBRYONIC ANTIGEN 2.1 ng/mL (0.0-4.7)
[2018-09-27] MEDS ORDERED: METOCLOPRAMIDE HCL INJECTION 10 MG/2 ML VIAL IVPUSH ONE (02:52)
[2018-09-27] MEDS: LEVOTHYROXINE NA 75 MCG TABLET (FP) PO SCH (06:28)
[2018-09-27 07:37] LABS: BASO % 0.7 % (0-2.0); EOS % 2.5 % (0-4.5); HEMATOCRIT 29.5 % (32.4-45.2); HEMOGLOBIN 9.6 GM/dL (10.7-15.3); LYMPH % 11.9 % (8-40); MCH 30.2 pg (25.7-33.7); MCHC 32.4 g/dl (32.0-36.0); MEAN CELL VOLUME 93.2 fl (80-96); MEAN PLT VOLUME 8.6 fl (7.5-11.1); MONO % 8.8 % (3.8-10.2); NEUT % 76.1 % (42.8-82.8); PLATELET COUNT 170 K/MM3 (134-434); RBC 3.16 M/mm3 (3.60-5.2); RDW 13.4 % (11.6-15.6); WHITE BLOOD COUNT 6.7 K/mm3 (4.0-10.0)
[2018-09-27 08:07] LABS: ANION GAP 5 MMOL/L (8-16); BLOOD UREA NITROGEN 5 mg/dL (7-18); CALCIUM 7.8 mg/dL (8.5-10.1); CHLORIDE 111 mmol/L (98-107); CO2 27 mmol/L (21-32); CREATININE 0.8 mg/dL (0.55-1.3); GLUCOSE,RANDOM 113 mg/dL (74-106); MAGNESIUM 1.8 mg/dL (1.8-2.4); POTASSIUM 3.7 mmol/L (3.5-5.1); SODIUM 143 mmol/L (136-145)
--- NOTE | 2018-09-27 09:11 | PN ---
GI Progress Note Subjective: GI Service coverage: No acute events. States feeling nauseous, otherwise abdominal pain has improved , no further rectal bleeding - Objective Vital Signs: Vital Signs Temperature 98 F 09/27/18 09:01 Pulse Rate 83 09/27/18 09:01 Respiratory Rate 18 09/27/18 09:01 Blood Pressure 141/65 09/27/18 09:01 O2 Sat by Pulse Oximetry (%) 96 09/26/18 21:00 Constitutional: Calm Eyes: No: Sclera Icterus Cardiovascular: Yes: Regular Rate and Rhythm Respiratory: Yes: CTA Bilaterally Gastrointestinal Inspection: No: Distention ...Auscultate: Yes: Normoactive Bowel Sounds ...Palpate: No: Guarding, Tenderness (Improved TTP), Tenderness, Rebound Edema: No (No LE edema) Neurological: Yes: Alert Labs: CBC, BMP 09/27/18 06:15 09/27/18 06:15 INR, PTT INR 1.01 (0.83-1.09) 09/22/18 21:13 Problem List - Problems (1) Ischemic colitis Assessment/Plan: Suspected recurrent ischemic colitis Clinically much improved: Discontinue flagyl. Likely contributing to nausea Ischemic vessel usually small vessel disease but will obtain CTA A/P given recurrent nature. ? NSAID precipitated Vascular consult pending Full liquids Code(s): K55.9 - VASCULAR DISORDER OF INTESTINE, UNSPECIFIED
[2018-09-27] MEDS: predniSONE 5 MG TABLET (UD) PO SCH (09:24)
[2018-09-27] MEDS: LISINOPRIL 10 MG TABLET (FP) PO SCH (09:25)
[2018-09-27] MEDS: TAMOXIFEN CITRATE 10 MG TABLET PO SCH (09:30)
[2018-09-27] MEDS: PANTOPRAZOLE SODIUM 40 MG VIAL IVPUSH SCH (09:30)
--- NOTE | 2018-09-27 14:48 | PN ---
Progress Note, Physician Chief Complaint: Ms Welch says she is feeling better. Pain almost resolved. No cp, sob, n/v. - Current Medication List Current Medications: Active Medications Acetaminophen (Ofirmev Injection -) 1,000 mg IVPB Q6H PRN PRN Reason: PAIN LEVEL 6-10 Levofloxacin (Levaquin 500 Mg Premixed Ivpb -) 500 mg in 100 mls @ 100 mls/hr IVPB DAILY [facility]; Protocol Last Admin: 09/27/18 09:22 Dose: 100 mls/hr Levothyroxine Sodium (Synthroid -) 75 mcg PO DAILY@0700 [facility] Last Admin: 09/27/18 06:28 Dose: 75 mcg Lisinopril (Prinivil) 10 mg PO DAILY [facility] Last Admin: 09/27/18 09:25 Dose: 10 mg Metoprolol Succinate (Toprol Xl -) 50 mg PO DAILY [facility] Last Admin: 09/27/18 09:25 Dose: 50 mg Morphine Sulfate (Morphine Sulfate) 4 mg IVPUSH Q6H PRN PRN Reason: PAIN LEVEL 7 - 10 Last Admin: 09/25/18 20:29 Dose: 4 mg Ondansetron HCl (Zofran Injection) 4 mg IVPUSH Q6H PRN PRN Reason: NAUSEA AND/OR VOMITING Last Admin: 09/26/18 21:46 Dose: 4 mg Pantoprazole Sodium (Protonix Iv) 40 mg IVPUSH DAILY [facility] Last Admin: 09/27/18 09:30 Dose: 40 mg Prednisone (Deltasone -) 2.5 mg PO DAILY [facility] Last Admin: 09/27/18 09:24 Dose: 2.5 mg Tamoxifen Citrate (Tamoxifen Citrate) 20 mg PO DAILY [facility] Last Admin: 09/27/18 09:30 Dose: 20 mg - Objective Vital Signs: Vital Signs Temperature 36.6 C 09/27/18 13:37 Pulse Rate 86 09/27/18 13:37 Respiratory Rate 20 09/27/18 13:37 Blood Pressure 139/74 09/27/18 13:37 O2 Sat by Pulse Oximetry (%) 98 09/27/18 09:00 Constitutional: Yes: Well Nourished, No Distress, Calm Cardiovascular: Yes: Regular Rate and Rhythm. No: Gallop, Murmur, Rub Respiratory: Yes: Regular, CTA Bilaterally. No: Rales, Rhonchi, Wheezes Gastrointestinal: Yes: Normal Bowel Sounds, Soft, Tenderness (slight LLQ). No: Distention Extremities: Yes: WNL Edema: No Labs: CBC, BMP 09/27/18 06:15 09/27/18 06:15 INR, PTT INR 1.01 (0.83-1.09) 09/22/18 21:13 Assessment/Plan (1) Ischemic colitis Assessment/Plan: -GI and ID following -CT scan performed, awaiting read -GI stopped flagyl, concern it is causing nausea -vascular surgery consulted Code(s): K55.9 - VASCULAR DISORDER OF INTESTINE, UNSPECIFIED (2) Leukocytosis Assessment/Plan: -iresolved Code(s): D72.829 - ELEVATED WHITE BLOOD CELL COUNT, UNSPECIFIED (3) HTN (hypertension) Assessment/Plan: -continue current management Code(s): I10 - ESSENTIAL (PRIMARY) HYPERTENSION Qualifiers: Hypertension type: essential hypertension Qualified Code(s): I10 - Essential (primary) hypertension (4) Hyperlipidemia Assessment/Plan: -stable -hold statin for now Code(s): E78.5 - HYPERLIPIDEMIA, UNSPECIFIED (5) PMR (polymyalgia rheumatica) Assessment/Plan: -stable -continue prednisone 2.5mg Code(s): M35.3 - POLYMYALGIA RHEUMATICA (6) Breast cancer, left breast Assessment/Plan: -s/p lumpectomy -continue tamoxifen -followed by outpt Code(s): C50.912 - MALIGNANT NEOPLASM OF UNSPECIFIED SITE OF LEFT FEMALE BREAST Qualifiers: Breast location: overlapping sites of breast Patient sex: female (7) Hypomagnesemia Assessment/Plan: -repleted Code(s): E83.42 - HYPOMAGNESEMIA
--- NOTE | 2018-09-28 00:26 | PN ---
Progress Note, Physician History of Present Illness: 68 yo F PMH HTN, HLD, Hypothyroidism, ischemic colitis, diverticulitis, breast cancer s/p L sided lumpectomy with radiation (december 2017), and polymyalgia rheumatica?, p/w lower abdominal pain, n/v and bloody diarrhea for 1 day. She reports she has had about 10 episodes of bloody diarrhea and about 4 episodes of nonbloody. Less blood noted in the stool. - Current Medication List Current Medications: Active Medications Acetaminophen (Ofirmev Injection -) 1,000 mg IVPB Q6H PRN PRN Reason: PAIN LEVEL 6-10 Levofloxacin (Levaquin 500 Mg Premixed Ivpb -) 500 mg in 100 mls @ 100 mls/hr IVPB DAILY [facility]; Protocol Last Admin: 09/27/18 09:22 Dose: 100 mls/hr Levothyroxine Sodium (Synthroid -) 75 mcg PO DAILY@0700 [facility] Last Admin: 09/27/18 06:28 Dose: 75 mcg Lisinopril (Prinivil) 10 mg PO DAILY [facility] Last Admin: 09/27/18 09:25 Dose: 10 mg Metoprolol Succinate (Toprol Xl -) 50 mg PO DAILY [facility] Last Admin: 09/27/18 09:25 Dose: 50 mg Morphine Sulfate (Morphine Sulfate) 4 mg IVPUSH Q6H PRN PRN Reason: PAIN LEVEL 7 - 10 Last Admin: 09/25/18 20:29 Dose: 4 mg Ondansetron HCl (Zofran Injection) 4 mg IVPUSH Q6H PRN PRN Reason: NAUSEA AND/OR VOMITING Last Admin: 09/26/18 21:46 Dose: 4 mg Pantoprazole Sodium (Protonix Iv) 40 mg IVPUSH DAILY [facility] Last Admin: 09/27/18 09:30 Dose: 40 mg Prednisone (Deltasone -) 2.5 mg PO DAILY [facility] Last Admin: 09/27/18 09:24 Dose: 2.5 mg Tamoxifen Citrate (Tamoxifen Citrate) 20 mg PO DAILY [facility] Last Admin: 09/27/18 09:30 Dose: 20 mg - Objective Vital Signs: Vital Signs Temperature 98.3 F 09/27/18 17:55 Pulse Rate 86 09/27/18 17:55 Respiratory Rate 20 09/27/18 17:55 Blood Pressure 153/83 09/27/18 17:55 O2 Sat by Pulse Oximetry (%) 98 09/27/18 09:00 Constitutional: Yes: Well Nourished, No Distress, Calm Eyes: Yes: Conjunctiva Clear, EOM Intact HENT: Yes: Atraumatic, Normocephalic Neck: Yes: Supple, Trachea Midline Cardiovascular: Yes: Regular Rate and Rhythm, S1, S2 Respiratory: Yes: Regular, CTA Bilaterally Gastrointestinal: Yes: Normal Bowel Sounds, Soft ...Rectal Exam: Yes: Deferred Genitourinary: No: CVA Tenderness - Left, CVA Tenderness - Right Breast(s): No: Breast Implants, Gynecomastia, Mass Musculoskeletal: No: Muscle Weakness Extremities: No: Cool, Cyanosis Edema: No Peripheral Pulses WNL: Yes Peripheral Pulses: Left Radial: 2+, Right Radial: 2+, Left Doralis Pedis: 2+, Right Dorsalis Pedis: 2+, Left Femoral: 2+, Right Femoral: 2+ Integumentary: No: Jaundice, Pressure Ulcer, Rash Neurological: Yes: Alert, Oriented Psychiatric: Yes: Alert, Oriented Labs: CBC, BMP 09/27/18 06:15 09/27/18 06:15 INR, PTT INR 1.01 (0.83-1.09) 09/22/18 21:13 Problem List - Problems (1) Ischemic colitis, enteritis, or enterocolitis Assessment/Plan: 68yo female MMP history of breast cancer and radiation presents with acute colitis of unspecified eitiology. No acute surgical intervention is indicated NPO and IVF hydration Supportive medical management tumor markers ID consult for IV antibiotics GI evaluation for repeat colonoscopy and biopsy post episode IBD (Crohns and ulcerative cololits) workup Discussed the possibility of elective subtotal colectomy recall as needed Code(s): K55.9 - VASCULAR DISORDER OF INTESTINE, UNSPECIFIED (2) Abdominal pain in female Code(s): R10.9 - UNSPECIFIED ABDOMINAL PAIN (3) PMR (polymyalgia rheumatica) Code(s): M35.3 - POLYMYALGIA RHEUMATICA (4) Breast cancer, left breast Code(s): C50.912 - MALIGNANT NEOPLASM OF UNSPECIFIED SITE OF LEFT FEMALE BREAST Qualifiers: Breast location: overlapping sites of breast Patient sex: female (5) HTN (hypertension) Code(s): I10 - ESSENTIAL (PRIMARY) HYPERTENSION Qualifiers: Hypertension type: essential hypertension Qualified Code(s): I10 - Essential (primary) hypertension (6) Polyarthralgia Code(s): M25.50 - PAIN IN UNSPECIFIED JOINT
[2018-09-28] MEDS: LEVOTHYROXINE NA 75 MCG TABLET (FP) PO SCH (06:18)
[2018-09-28 06:57] LABS: BASO % 0.9 % (0-2.0); EOS % 2.8 % (0-4.5); HEMATOCRIT 30.3 % (32.4-45.2); LYMPH % 13.6 % (8-40); MCH 30.9 pg (25.7-33.7); MCHC 33.2 g/dl (32.0-36.0); MEAN CELL VOLUME 93.1 fl (80-96); MEAN PLT VOLUME 8.7 fl (7.5-11.1); MONO % 11.9 % (3.8-10.2); NEUT % 70.8 % (42.8-82.8); PLATELET COUNT 198 K/MM3 (134-434); RBC 3.25 M/mm3 (3.60-5.2); RDW 13.4 % (11.6-15.6); WHITE BLOOD COUNT 7.5 K/mm3 (4.0-10.0)
[2018-09-28 07:11] LABS: ANION GAP 6 MMOL/L (8-16); BLOOD UREA NITROGEN 5 mg/dL (7-18); CALCIUM 7.7 mg/dL (8.5-10.1); CHLORIDE 111 mmol/L (98-107); CO2 26 mmol/L (21-32); CREATININE 0.8 mg/dL (0.55-1.3); GLUCOSE,RANDOM 93 mg/dL (74-106); MAGNESIUM 1.6 mg/dL (1.8-2.4); PHOSPHOROUS 3.2 mg/dL (2.5-4.9); POTASSIUM 3.5 mmol/L (3.5-5.1); SODIUM 144 mmol/L (136-145)
[2018-09-28] MEDS: predniSONE 5 MG TABLET (UD) PO SCH (09:20)
[2018-09-28] MEDS: PANTOPRAZOLE SODIUM 40 MG VIAL IVPUSH SCH (09:21)
[2018-09-28] MEDS: LISINOPRIL 10 MG TABLET (FP) PO SCH (09:21)
[2018-09-28] MEDS: TAMOXIFEN CITRATE 10 MG TABLET PO SCH (09:24)
--- NOTE | 2018-09-28 10:39 | PN ---
Progress Note, Physician Chief Complaint: Pt lying in bed in no acute distress. tolerating full liquids. feels better. Denies any chest pain, sob, n/v/d, abd pain - Current Medication List Current Medications: Active Medications Acetaminophen (Ofirmev Injection -) 1,000 mg IVPB Q6H PRN PRN Reason: PAIN LEVEL 6-10 Levofloxacin (Levaquin 500 Mg Premixed Ivpb -) 500 mg in 100 mls @ 100 mls/hr IVPB DAILY [facility]; Protocol Last Admin: 09/28/18 09:19 Dose: 100 mls/hr Levothyroxine Sodium (Synthroid -) 75 mcg PO DAILY@0700 [facility] Last Admin: 09/28/18 06:18 Dose: 75 mcg Lisinopril (Prinivil) 10 mg PO DAILY [facility] Last Admin: 09/28/18 09:21 Dose: 10 mg Metoprolol Succinate (Toprol Xl -) 50 mg PO DAILY [facility] Last Admin: 09/28/18 09:21 Dose: 50 mg Morphine Sulfate (Morphine Sulfate) 4 mg IVPUSH Q6H PRN PRN Reason: PAIN LEVEL 7 - 10 Last Admin: 09/25/18 20:29 Dose: 4 mg Ondansetron HCl (Zofran Injection) 4 mg IVPUSH Q6H PRN PRN Reason: NAUSEA AND/OR VOMITING Last Admin: 09/26/18 21:46 Dose: 4 mg Pantoprazole Sodium (Protonix Iv) 40 mg IVPUSH DAILY [facility] Last Admin: 09/28/18 09:21 Dose: 40 mg Prednisone (Deltasone -) 2.5 mg PO DAILY [facility] Last Admin: 09/28/18 09:20 Dose: 2.5 mg Tamoxifen Citrate (Tamoxifen Citrate) 20 mg PO DAILY [facility] Last Admin: 09/28/18 09:24 Dose: 20 mg - Objective Vital Signs: Vital Signs Temperature 98.4 F 09/28/18 05:00 Pulse Rate 83 09/28/18 05:00 Respiratory Rate 20 09/28/18 05:00 Blood Pressure 114/62 09/28/18 05:00 O2 Sat by Pulse Oximetry (%) 97 09/27/18 21:00 Constitutional: Yes: Well Nourished, No Distress Cardiovascular: Yes: WNL, Regular Rate and Rhythm. No: Murmur Respiratory: Yes: WNL, Regular, CTA Bilaterally. No: Accessory Muscle Use, SOB , Tachypnea, Wheezes Gastrointestinal: Yes: WNL, Normal Bowel Sounds, Soft. No: Distention, Tenderness Genitourinary: Yes: WNL Musculoskeletal: Yes: WNL Extremities: Yes: WNL Edema: No Neurological: Yes: WNL, Alert, Oriented Psychiatric: Yes: WNL, Alert, Oriented Labs: CBC, BMP 09/28/18 05:15 09/28/18 05:15 INR, PTT INR 1.01 (0.83-1.09) 09/22/18 21:13 Assessment/Plan (1) Ischemic colitis Assessment/Plan: improved hg/hct stable tolerating full liquids transitioned to po levaquin vascular consult pending GI/ID following Code(s): K55.9 - VASCULAR DISORDER OF INTESTINE, UNSPECIFIED (2) Leukocytosis Assessment/Plan: resolved pt on chronic prednisone for pmr Code(s): D72.829 - ELEVATED WHITE BLOOD CELL COUNT, UNSPECIFIED (3) HTN (hypertension) Assessment/Plan: controlled continue home meds Code(s): I10 - ESSENTIAL (PRIMARY) HYPERTENSION Qualifiers: Hypertension type: essential hypertension Qualified Code(s): I10 - Essential (primary) hypertension (4) Hyperlipidemia Assessment/Plan: stable continue statin Code(s): E78.5 - HYPERLIPIDEMIA, UNSPECIFIED (5) PMR (polymyalgia rheumatica) Assessment/Plan: stable continue prednisone 2.5mg Code(s): M35.3 - POLYMYALGIA RHEUMATICA (6) Breast cancer, left breast Assessment/Plan: s/p lumpectomy continue tamoxifen followed by outpt Code(s): C50.912 - MALIGNANT NEOPLASM OF UNSPECIFIED SITE OF LEFT FEMALE BREAST Qualifiers: Breast location: overlapping sites of breast Patient sex: female (7) Hypomagnesemia Assessment/Plan: mg level 1.6 mg iv 2g x 1 monitor bmp Code(s): E83.42 - HYPOMAGNESEMIA (8) Hypokalemia Assessment/Plan: K level 3.5 kcl po 40meq bid monitor bmp Code(s): E87.6 - HYPOKALEMIA Dispo: Home pending GI clearance, Vascular consult
[2018-09-28] MEDS ORDERED: MAGNESIUM SULF 50% (8.12 MEQ/2 ML-1 GM VIAL) IVPB ONE (11:15)
[2018-09-28] MEDS: POTASSIUM CHLORIDE ORAL LIQUID 20 MEQ/15 ML PO SCH ×2 (11:28→22:07)
--- NOTE | 2018-09-28 12:36 | PN ---
Progress Note, Physician History of Present Illness: Awake, alert Supine in bed No c/o abdominal pain + watery BM Tolerating full liquid diet Afebrile WBC WNL Stool c/s (-) CTA abdo reading pending - Current Medication List Current Medications: Active Medications Acetaminophen (Ofirmev Injection -) 1,000 mg IVPB Q6H PRN PRN Reason: PAIN LEVEL 6-10 Levofloxacin (Levaquin 500 Mg Premixed Ivpb -) 500 mg in 100 mls @ 100 mls/hr IVPB DAILY [facility]; Protocol Last Admin: 09/28/18 09:19 Dose: 100 mls/hr Levothyroxine Sodium (Synthroid -) 75 mcg PO DAILY@0700 [facility] Last Admin: 09/28/18 06:18 Dose: 75 mcg Lisinopril (Prinivil) 10 mg PO DAILY [facility] Last Admin: 09/28/18 09:21 Dose: 10 mg Metoprolol Succinate (Toprol Xl -) 50 mg PO DAILY [facility] Last Admin: 09/28/18 09:21 Dose: 50 mg Ondansetron HCl (Zofran Injection) 4 mg IVPUSH Q6H PRN PRN Reason: NAUSEA AND/OR VOMITING Last Admin: 09/26/18 21:46 Dose: 4 mg Pantoprazole Sodium (Protonix -) 40 mg PO DAILY [facility] Potassium Chloride (Potassium Chloride Oral Liquid) 40 meq PO BID [facility] Last Admin: 09/28/18 11:28 Dose: 40 meq Prednisone (Deltasone -) 2.5 mg PO DAILY [facility] Last Admin: 09/28/18 09:20 Dose: 2.5 mg Tamoxifen Citrate (Tamoxifen Citrate) 20 mg PO DAILY [facility] Last Admin: 09/28/18 09:24 Dose: 20 mg - Objective Vital Signs: Vital Signs Temperature 98.7 F 09/28/18 09:00 Pulse Rate 91 H 09/28/18 09:00 Respiratory Rate 20 09/28/18 09:00 Blood Pressure 147/81 09/28/18 09:00 O2 Sat by Pulse Oximetry (%) 96 09/28/18 09:00 Constitutional: Yes: No Distress Eyes: Yes: Conjunctiva Clear Cardiovascular: Yes: Regular Rate and Rhythm, S1, S2 Respiratory: Yes: CTA Bilaterally Gastrointestinal: Yes: Normal Bowel Sounds, Soft. No: Tenderness Labs: CBC, BMP 09/28/18 05:15 09/28/18 05:15 INR, PTT INR 1.01 (0.83-1.09) 09/22/18 21:13 Assessment/Plan Probable recurrent ischemic colitis Await CTA May substitute po levaquin
--- NOTE | 2018-09-28 14:02 | CONSULT ---
Consult - History of Present Illness History of Present Illness: 68 year old woman admitted with abdominal pain and lower gi bleeding. She has a history of ischemic colitis diagnosed in 2012 by colonoscopy and biopsy. She has had several additional episodes of GI bleeding and a repeat colonoscopy in 2014 showing scarring of the sigmoid. - Past Medical History Cardio/Vascular: Yes: HTN, Hyperlipdemia Gastrointestinal: Yes: Other (H/O ischemic colitis 2012, ? recurrence in 2014) Endocrine: Yes: Hyperthyroidism, Hypothyroidism - Past Surgical History Past Surgical History: Yes: , Cholecystectomy - Alcohol/Substance Use Hx Alcohol Use: Yes (rare) History of Substance Use: reports: None - Smoking History Smoking history: Never smoked Have you smoked in the past 12 months: No Aproximately how many cigarettes per day: 0 If you are a former smoker, when did you quit?: 1985 - Social History ADL: Independent History of Recent Travel: No Home Medications - Allergies Allergies/Adverse Reactions: Allergies Allergy/AdvReac Type Severity Reaction Status Date / Time Sulfa (Sulfonamide Allergy Swelling Verified 12/29/17 13:04 Antibiotics) - Home Medications Home Medications: Ambulatory Orders Levothyroxine [Synthroid -] 75 mcg PO DAILY #0 tablet 08/23/13 Metoprolol Succinate [Toprol XL -] 50 mg PO DAILY #0 tab.sr.24h 08/23/13 Lisinopril [Prinivil] 10 mg PO DAILY 05/22/15 Lansoprazole [Prevacid -] 15 mg PO DAILY 05/23/15 Simvastatin [Zocor -] 10 mg PO HS 05/23/15 Aspirin [ASA -] 81 mg PO DAILY 12/29/17 Calcium Carbonate [Calcium] 500 mg PO BID 12/29/17 Naproxen 500 mg PO BID PRN #20 tablet 03/01/18 Tramadol HCl [Ultram] 50 mg PO TID PRN #15 tablet MDD 3 tabs 03/01/18 Pantoprazole Sodium [Protonix -] 20 mg PO DAILY #30 tablet.ec 03/03/18 predniSONE [Deltasone -] 10 mg PO DAILY #30 tablet 03/03/18 Family Disease History - Family Disease History Family Disease History: CA: Mother (breast 42 ), Brother (prostate ca 58 living) Physical Exam Vital Signs: Vital Signs Temperature 97.8 F 09/28/18 13:36 Pulse Rate 86 09/28/18 13:36 Respiratory Rate 20 09/28/18 13:36 Blood Pressure 135/71 09/28/18 13:36 O2 Sat by Pulse Oximetry (%) 96 09/28/18 09:00 Labs: CBC, BMP 09/28/18 05:15 09/28/18 05:15 Imaging - Results Cat Scan: Image Reviewed (CTA shows patent lower thoracic and abdominal aorta, iliac and proximal femoral vessels. All are patent and free of atherosclerotic changes. The celiac, SMA and JOVI are patent without stenosis.) Problem List - Problems (1) Colitis Assessment/Plan: Recurrent colitis with previous diagnosis of ischemic colitis. There are no findings on CTA to suggest stenosis of the main visceral vessels, smaller branches are not seen on the study. Other causes of inflammation of the colon should be sought. Code(s): K52.9 - NONINFECTIVE GASTROENTERITIS AND COLITIS, UNSPECIFIED
--- NOTE | 2018-09-28 18:20 | PN ---
GI Progress Note Subjective: Patient states feeling well. Abdominal pain improved She gave more information. For the 2 days prior to the development of abdominal pain she was constipated and took dulcolax the day prior. - Objective Vital Signs: Vital Signs Temperature 98.2 F 09/28/18 17:00 Pulse Rate 82 09/28/18 17:00 Respiratory Rate 20 09/28/18 17:00 Blood Pressure 148/77 09/28/18 17:00 O2 Sat by Pulse Oximetry (%) 96 09/28/18 09:00 Constitutional: Calm Eyes: No: Sclera Icterus Cardiovascular: Yes: Regular Rate and Rhythm Respiratory: Yes: CTA Bilaterally Gastrointestinal Inspection: No: Distention ...Auscultate: Yes: Normoactive Bowel Sounds ...Palpate: No: Hepatomegaly, Splenomegaly, Tenderness ...Percussion: No: Tympanitic Edema: No (No LE edema) Labs: CBC, BMP 09/28/18 05:15 09/28/18 05:15 INR, PTT INR 1.01 (0.83-1.09) 09/22/18 21:13 - ....Imaging Cat Scan: Image Reviewed (inflammatory changes left colon) Problem List - Problems (1) Ischemic colitis Assessment/Plan: Clinically improved Appreciate vascular surgery input and the recommendation to check for other causes of colon inflammation. the fact that CTA showed patent mesenteric vessels is not a surprising finding in left sided ischemic colitis as it is genrally small vessel disease. Possible precipitatants may have been constipation, stimulant laxative therapy, NSAID use or possible combination of all of those. Discussed plan for flex sig tomorrow wih Ms. Welch for further evaluation. She is in agreement NPO after midnight except meds Tap Water enema this evening and in AM Code(s): K55.9 - VASCULAR DISORDER OF INTESTINE, UNSPECIFIED
[2018-09-29] MEDS: LEVOTHYROXINE NA 75 MCG TABLET (FP) PO SCH (06:06)
[2018-09-29 06:30] LABS: BASO % 0.9 % (0-2.0); EOS % 2.5 % (0-4.5); HEMATOCRIT 33.4 % (32.4-45.2); HEMOGLOBIN 11.1 GM/dL (10.7-15.3); LYMPH % 17.4 % (8-40); MCH 30.9 pg (25.7-33.7); MCHC 33.1 g/dl (32.0-36.0); MEAN CELL VOLUME 93.5 fl (80-96); MEAN PLT VOLUME 8.6 fl (7.5-11.1); MONO % 12.4 % (3.8-10.2); NEUT % 66.8 % (42.8-82.8); PLATELET COUNT 235 K/MM3 (134-434); RBC 3.57 M/mm3 (3.60-5.2); RDW 13.5 % (11.6-15.6); WHITE BLOOD COUNT 8.4 K/mm3 (4.0-10.0)
[2018-09-29 06:51] LABS: ANION GAP 7 MMOL/L (8-16); BLOOD UREA NITROGEN 6 mg/dL (7-18); CALCIUM 8.1 mg/dL (8.5-10.1); CHLORIDE 111 mmol/L (98-107); CO2 24 mmol/L (21-32); CREATININE 0.8 mg/dL (0.55-1.3); GLUCOSE,RANDOM 92 mg/dL (74-106); POTASSIUM 4.4 mmol/L (3.5-5.1); SODIUM 141 mmol/L (136-145)
--- NOTE | 2018-09-29 08:57 | PN ---
Progress Note (short form) - Note Progress Note: Flex sig complete. Report left in procedural section of physical chart and will be scanned into [employer] Problem List - Problems (1) Ischemic colitis Code(s): K55.9 - VASCULAR DISORDER OF INTESTINE, UNSPECIFIED
[2018-09-29] MEDS ORDERED: PANTOPRAZOLE 40 MG TABLET (FP) PO SCH (10:00)
[2018-09-29] MEDS: POTASSIUM CHLORIDE ORAL LIQUID 20 MEQ/15 ML PO SCH (10:06)
[2018-09-29] MEDS: TAMOXIFEN CITRATE 10 MG TABLET PO SCH (10:06)
[2018-09-29] MEDS: predniSONE 5 MG TABLET (UD) PO SCH (10:06)
[2018-09-29] MEDS: LISINOPRIL 10 MG TABLET (FP) PO SCH (10:07)
--- NOTE | 2018-09-29 15:12 | DS ---
Physical Examination Vital Signs: Vital Signs Temperature 98.0 F 09/29/18 10:15 Pulse Rate 89 09/29/18 10:15 Respiratory Rate 20 09/29/18 10:15 Blood Pressure 160/78 09/29/18 10:15 O2 Sat by Pulse Oximetry (%) 99 09/29/18 09:32 Labs: CBC, BMP 09/29/18 05:00 09/29/18 05:00 Discharge Summary Reason For Visit: NON SPECIFIC COLITIS Current Active Problems Abdominal pain in female (Acute) Bloody diarrhea (Acute) Colitis (Acute) History of adenomatous polyp of colon (Acute) Hypokalemia (Acute) Hypomagnesemia (Acute) Ischemic colitis (Acute) Ischemic colitis, enteritis, or enterocolitis (Acute) Leukocytosis (Acute) PMR (polymyalgia rheumatica) (Acute) Condition: Fair - Instructions Diet, Activity, Other Instructions: AVOID NSAIDS- LIKE ASPIRIN, MOTRIN, ADVIL..ETC AVOID STIMULANT LAXATIVES LOW FIBER/LOW NA DIET continue prednisone 2.5mg as directed by rheumatology tamoxifen as before F/U OUTPT DIRECTED Referrals: Kendrick Iqbal DO [Staff Physician] - 1 Week Jacob Munguia MD [Primary Care Provider] - 1 Week Disposition: HOME - Home Medications Comprehensive Discharge Medication List: Ambulatory Orders Levothyroxine [Synthroid -] 75 mcg PO DAILY #0 tablet 08/23/13 Metoprolol Succinate [Toprol XL -] 50 mg PO DAILY #0 tab.sr.24h 08/23/13 Lisinopril [Prinivil] 10 mg PO DAILY 05/22/15 Simvastatin [Zocor -] 10 mg PO HS 05/23/15 Calcium Carbonate [Calcium] 500 mg PO BID 12/29/17 Tramadol HCl [Ultram] 50 mg PO TID PRN #15 tablet MDD 3 tabs 03/01/18 Pantoprazole Sodium [Protonix -] 20 mg PO DAILY #30 tablet.ec 03/03/18 Tamoxifen Citrate 20 mg PO DAILY tablet 09/29/18 predniSONE [Deltasone -] 2.5 mg PO DAILY tablet 09/29/18
[2018-09-29 15:26] VITALS: BP 148/58; PULSE 86; TEMP 97.8
--- NOTE | 2018-09-29 15:54 | PN ---
Progress Note, Physician History of Present Illness: Doing well No c/o abdominal pain Tolerating diet Afebrile WBC WNL Cultures negative - Current Medication List Current Medications: Active Medications Acetaminophen (Ofirmev Injection -) 1,000 mg IVPB Q6H PRN PRN Reason: PAIN LEVEL 6-10 Levothyroxine Sodium (Synthroid -) 75 mcg PO DAILY@0700 [facility] Last Admin: 09/29/18 06:06 Dose: 75 mcg Lisinopril (Prinivil) 10 mg PO DAILY [facility] Last Admin: 09/29/18 10:07 Dose: 10 mg Metoprolol Succinate (Toprol Xl -) 50 mg PO DAILY [facility] Last Admin: 09/29/18 10:06 Dose: 50 mg Ondansetron HCl (Zofran Injection) 4 mg IVPUSH Q6H PRN PRN Reason: NAUSEA AND/OR VOMITING Last Admin: 09/26/18 21:46 Dose: 4 mg Pantoprazole Sodium (Protonix -) 40 mg PO DAILY [facility] Last Admin: 09/29/18 10:06 Dose: 40 mg Potassium Chloride (Potassium Chloride Oral Liquid) 40 meq PO BID [facility] Last Admin: 09/29/18 10:06 Dose: 40 meq Prednisone (Deltasone -) 2.5 mg PO DAILY [facility] Last Admin: 09/29/18 10:06 Dose: 2.5 mg Tamoxifen Citrate (Tamoxifen Citrate) 20 mg PO DAILY [facility] Last Admin: 09/29/18 10:06 Dose: 20 mg - Objective Vital Signs: Vital Signs Temperature 97.8 F 09/29/18 15:21 Pulse Rate 86 09/29/18 15:21 Respiratory Rate 22 H 09/29/18 15:21 Blood Pressure 148/58 L 09/29/18 15:21 O2 Sat by Pulse Oximetry (%) 99 09/29/18 09:32 Constitutional: Yes: No Distress Cardiovascular: Yes: Regular Rate and Rhythm, S1, S2 Respiratory: Yes: CTA Bilaterally Gastrointestinal: Yes: Normal Bowel Sounds, Soft. No: Tenderness Labs: CBC, BMP 09/29/18 05:00 09/29/18 05:00 INR, PTT INR 1.01 (0.83-1.09) 09/22/18 21:13 Assessment/Plan Ischemic colitis- improved Endoscopic findings noted D/C levaquin OK to D/C home off antibiotics
--- NOTE | 2018-09-30 16:08 | PATH ---
Surgical Pathology Report Patient Name: KJ CABRERA Med. Rec. #: [id number] /Age/Gender: 1950 (Age: 68) / F Account: [id number] Location: [facility] MED/SURG Taken: 09/28/2018 Received: 09/29/2018 Reported: 09/30/2018 Physicians: Juan Iqbal D.O. Specimen(s) Received A: BX TRANSVERSE COLON B: BX DESCENDING COLON C: BX SIGMOID Clinical History Colitis Postoperative diagnosis: Hemorrhoids, colitis Final Diagnosis A. TRANSVERSE COLON, BIOPSY: COLONIC MUCOSA SHOWING SUPERFICIAL MUCOSAL NECROSIS, MILD ACUTE INFLAMMATION, FIBROSIS, AND GRANULATION TISSUE EXTEND INTO THE SUBMUCOSA. SEE COMMENT. B. DESCENDING COLON, BIOPSY: COLONIC MUCOSA SHOWING MUCOSAL NECROSIS, CRYPT ABSCESS, MILD ACUTE INFLAMMATION IN THE LAMINA PROPRIA, FIBROSIS, AND GRANULATION TISSUE EXTEND INTO THE SUBMUCOSA. SEE COMMENT. C. SIGMOID, BIOPSY: COLONIC MUCOSA SHOWING MUCOSAL NECROSIS, MILD ACUTE INFLAMMATION, FIBROSIS, AND GRANULATION TISSUE EXTEND INTO THE SUBMUCOSA. SEE COMMENT. COMMENT: FINDINGS ARE CONSISTENT WITH ISCHEMIC COLITIS. CLINICAL CORRELATION IS RECOMMENDED. Electronically Signed Moni Singh M.D. Gross Description A. Received in formalin, labeled "biopsy transverse colon" are 2 anna, irregular portions of soft tissue measuring 0.1 and 0.2 cm. in greatest dimension. The specimens are submitted in toto in one cassette. B. Received in formalin, labeled "biopsy descending colon" is a anna, irregular portion of soft tissue measuring 0.4 cm. in greatest dimension. The specimen is submitted in toto in one cassette. C. Received in formalin, labeled "biopsy sigmoid" are 4 anna, irregular portions of soft tissue ranging from 0.1-0.4 cm. in greatest dimension. The specimens are submitted in toto in one cassette. DL/09/29/2018 saudi09/29/2018
== END 2018-09-29 17:56 | disposition home or self-care (01) | DRG 394 ==
LOC: JER 20:24 → JERBED 09-23 01:32 → J7W 09-23 08:55
PROVIDERS: ADMIT Internal Medicine; ATTEND Nurse Practitioner Family
PROC: 0DBN8ZX Excision of Sigmoid Colon, Via Natural or Artificial Opening Endoscopic, Diagnostic (ICD-10-PCS; principal; 2018-09-29 08:45)
DX: K55.9 Vascular disorder of intestine, unspecified (principal); K63.3 Ulcer of intestine; K52.9 Noninfective gastroenteritis and colitis, unspecified; I10 Essential (primary) hypertension; E03.9 Hypothyroidism, unspecified; M06.9 Rheumatoid arthritis, unspecified; E78.5 Hyperlipidemia, unspecified; R91.1 Solitary pulmonary nodule; D72.829 Elevated white blood cell count, unspecified; E83.42 Hypomagnesemia; E87.6 Hypokalemia; C50.912 Malignant neoplasm of unspecified site of left female breast; M25.50 Pain in unspecified joint; R19.7 Diarrhea, unspecified; K64.8 Other hemorrhoids; Z86.010 Personal history of colon polyps
CPT/HCPCS: 36415; 74174-TC; 74177-TC; 80048; 80053; 81003; 81015; 82272; 82378; 82550; 82728; 83540; 83550; 83605; 83690; 83735; 84100; 84484; 85025; 85044; 85610; 85651; 86140; 86850; 86900; 86901; 87045; 87046; 87086; 87177; 87205; 87209; 87324; 87449; 88305-TC; 93005; 93010; 99283-25; J0131; J7030

== ENCOUNTER 2020-06-25 04:58 | Day surgery (SDC) | payer OTHER ==
[2020-06-24 11:41] VITALS: BMI 22.0
--- OUTSIDE RECORDS SUMMARY | 2020-06-25 05:02 | XMS ---
:1950 [facility] Providers Name Role Phone DiGiornoAnilopher Unavailable DiGiorno, Christopher Unavailable DiGiorno, Christopher Unavailable Re-disclosure Warning The records that you are about to access may contain information from federally- assisted alcohol or drug abuse programs. If such information is present, then the following federally mandated warning applies: This information has been disclosed to you from records protected by federal confidentiality rules (42 CFR part 2). The federal rules prohibit you from making any further disclosure of this information unless further disclosure is expressly permitted by the written consent of the person to whom it pertains or as otherwise permitted by 42 CFR part 2. A general authorization for the release of medical or other information is NOT sufficient for this purpose. The Federal rules restrict any use of the information to criminally investigate or prosecute any alcohol or drug abuse patient.The records that you are about to access may contain highly sensitive health information, the redisclosure of which is protected by Article 27-F of the [facility] Public Health law. If you continue you may haveaccess to information: Regarding HIV / AIDS; Provided by facilities licensed or operated by the [facility] Office of Mental Health; or Provided by the [facility] Office for People With Developmental Disabilities. If such information is present, then the following [facility] mandated warning applies: This information has been disclosed to you from confidential records which are protected by state law. State law prohibits you from making any further disclosure of this information without the specific written consent of the person to whom it pertains, or as otherwise permitted by law. Any unauthorized further disclosure in violation of state law may result in a fine or longterm sentence or both. A general authorization for the release of medical or other information is NOT sufficient authorization for further disclosure. Allergies and Adverse Reactions Type Description Substance Reaction Status Data Source(s ) Drug allergy lisinopril Lisinopril Active [facility] ([facility], ) Encounters Encounter Providers Location Date Indications Data Source(s ) Attender: Juan [facility]05[facility] EDT Office Attender: Juan 06/05/2020 12:00:00 AM ED T [facility] ([facility], ) Office Attender: Juan 06/05/2020 12:00:00 AM ED T [facility] ([facility], ) Office Medications Medication Brand Start Product Dose Route Administrative Pharmacy [facility] [place] Indications Reaction Description Data Name Date Form Instructions Instructions Source(s) ibandronic BONIVA 06/05/ TABLET 30 complet BONIV A MED[facility] (St acid 150 MG :32519 2019 ed [facility] Oral Tablet 4 12:00: Medica l, [Boniva] 00 AM PC) BONIVA:9049 EDT 34 Simvastatin ZOCOR: 10/12/ TABLET 30 complet ZOCO R [facility] (St 20 MG Oral [id number] ed [facility] Tablet 12:00: Medical, [Zocor] 00 AM PC) ZOCOR:89846 EST 1 24 HR TOPROL 10/12/ TABLET, 30 complet TOPROL-XL [facility] (St metoprolol -XL:86 2018 EXTENDED ed Lauir n[facility] succinate 6438 12:00: RELEASE Medic al, 50 MG 00 AM PC) Extended EST Release Oral Tablet [Toprol] TOPROL-XL:8 12316 Tamoxifen TAMOXI 10/12/ TABLET 30 complet TAMOXI FEN [facility] (St 20 MG Oral FEN:31 2018 ed [facility] Tablet 3195 12:00: Medical, TAMOXIFEN:3 00 AM PC) 03934 EST Levothyroxi LEVOTH 10/12/ TABLET 30 complet LEVO THYROXIN [facility] (St ne Sodium YROXIN 2018 ed E Triny 0.075 MG E:9662 12:00: Medical , Oral Tablet 22 00 AM ) LEVOTHYROXI EST [id number] Insurance Providers Payer name Policy type Policy ID Covered Covered constitution party's Policy P monica / Coverage constitution party ID relationship to [employer] Inf ormation type ibarra [place] [id number] SP [id number] HEALTHC[facility] [place]IC[place] [facility] [place] [id number] [place] [id number] [place] [id number] SP [id number] [place] [id number] [place] [facility] [place] [id number] [place] [id number] [place] [id number] HEALTHCARE (MEDICARE) [place] [id number] SP [id number] BC OUT OF [id number] STATE MEDICARE [id number] SP [id number] A [id number] SP [id number] [facility] [id number] CARE MEDICARE COMPLETE (PPO) [id number] 1 [id number] [facility] [id number] CARE MEDICARE COMPLETE Problems, Conditions, and Diagnoses Code Display Name Description Problem Type Effective Dates Data Source(s) I10 Essential ESSENTIAL Problem 06/05/2020 [facility] ([address] (primary) (PRIMARY) 12:00:00 AM TARIK Agosto hypertension HYPERTENSION Medical, P C) 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 [facility] ([address] colon, unspecified COLON, UNSPECIFIED 12:00:00 AM EDSania Cota, PC) K59.00 Constipation, CONSTIPATION, Problem 10/12/2018 MED[facility] ( St unspecified UNSPECIFIED 12:00:00 AM BRITTANY Cota, PC) K55.9 Vascular disorder VASCULAR DISORDER Problem 10/12/2018 MED[facility] ([address] of intestine, OF INTESTINE, 12:00:00 AM EST Lauri n's unspecified UNSPECIFIED Medical, PC) 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 [facility] (St transverse colon TRANSVERSE COLON 12:00:00 AM E [facility], ) Surgeries/Procedures Procedure Description Date Indications Data Source(s) OFFICE OUTPATIENT VISIT 06/05/2020 MEDG EN ([facility] 15 MINUTES 12:00:00 AM EDT Medical, PC) OFFICE OUTPATIENT VISIT 11/09/2018 MED[facility] EN ([facility] 15 MINUTES 12:00:00 AM EST Medical, PC) Documentation of current 10/12/2018 MED GEN ([facility] medications (procedure) 12:00:00 AM EST Regi tatum PC) Documentation of current 10/12/2018 MED GEN ([facility] medications (procedure) 12:00:00 AM EST Regi baldwinical, PC) Documentation of current 10/12/2018 MED [facility] ([facility] medications (procedure) 12:00:00 AM EST Regi baldwinical, PC) Documentation of current 10/12/2018 MED GEN ([facility] medications (procedure) 12:00:00 AM EST dennyical PC) Documentation of current 10/12/2018 MED GEN ([facility] medications (procedure) 12:00:00 AM EST rc ) Results ID Date Data Source [id number] 06/20/2020 03:24:00 PM EDT [facility] Name Value Range Interpretation Description Data Sup porting Code Source(s) Document(s ) SARS [facility] coronavirus 2 RNA This lab was ordered by [facility] and reported by [facility]. ID Date Data Source [id number] 06/11/2020 06:02:00 PM EDT [facility] Name Value Range Interpretation Code Description Data Tanisha rce(s) Supporting Document(s ) SARS-COV-2 [facility] RNA RESP Diagnostics QL OLI+PROBE This lab was ordered by [facility] reported by [facility]. ID Date Data Source [id number] 11/09/2018 12:00:00 AM EST [facility] Name Value Range Interpretation Code Description Data Tanisha rce(s) Supporting Document(s ) C-Reactive 0.7 mg/L Normal (applies to [facility] (St Protein, non-numeric [facility] Quant results) Medical, PC) ID Date Data Source [id number] 11/09/2018 12:00:00 AM EST [facility] ([facility], ) Name Value Range Interpretation Description Data Sup porting Code Source(s) Document(s ) Leukocytes 10.6 Normal (applies [facility] (St [#/volume] in x10E3/uL to non-numeric [facility] Blood by results) [facility], ) Automated count Hemoglobin 11.8 Normal (applies [facility] (St [Mass/volume] in g/dL to non-numeric [facility] Blood results) [facility]) Erythrocytes 3.89 Normal (applies [facility] (St [#/volume] in x10E6/uL to non-numeric [facility] Blood by results) [facility], ) Automated count Hematocrit 36.2 % Normal (applies [facility] (St [Volume to non-numeric [facility] Fraction] of results) [facility], ) Blood by Automated count MCV 93 fL Normal (applies [facility] (St to non-numeric [facility] results) [facility]) MCHC 32.6 Normal (applies [facility] (St g/dL to non-numeric [facility] results) [facility]) MCH 30.3 pg Normal (applies [facility] (St to non-numeric [facility] results) [facility], ) Platelets 229 Normal (applies [facility] (St [#/area] in x10E3/uL to non-numeric [facility] Blood by results) [facility], ) Microscopy high power field RDW 13.6 % Normal (applies [facility] (St to non-numeric [facility] results) [facility], ) Neutrophils [#] 86 % Normal (applies [facility] ( St in Body fluid by to non-numeric [facility] Manual count results) [facility], ) Monocytes 5 % Normal (applies [facility] (St [#/volume] in to non-numeric [facility] Cord blood results) [facility]) Lymphs 9 % Normal (applies [facility] (St to non-numeric [facility] results) [facility]) Eos 0 % Normal (applies [facility] (St to non-numeric [facility] results) [facility]) Basos 0 % Normal (applies [facility] (St to non-numeric [facility] results) [facility]) Neutrophils 9.1 Above high normal [facility] (St (Absolute) x10E3/uL [facility], ) Lymphs 0.9 Normal (applies [facility] (St (Absolute) x10E3/uL to non-numeric [facility] results) [facility]) Monocytes(Absolu 0.6 Normal (applies [facility] (St te) x10E3/uL to non-numeric [facility] results) Medical, PC) Eos (Absolute) 0.0 Normal (applies [facility] (S t x10E3/uL to non-numeric [facility] results) Medical, PC) Immature 0 % Normal (applies [facility] (St Granulocytes to non-numeric [facility] results) Medical, PC) Baso (Absolute) 0.0 Normal (applies [facility] ( St x10E3/uL to non-numeric [facility] results) Medical, PC) Immature Grans 0.0 Normal (applies [facility] (S t (Abs) x10E3/uL to non-numeric [facility] results) Medical, PC) ID Date Data Source [id number] 11/09/2018 12:00:00 AM EST [facility] ([facility]) Name Value Range Interpretation Description Data Sup porting Code Source(s) Document(s ) Glucose 129 Above high [facility] (St [Mass/volume] in mg/dL normal [facility] Urine collected for Medical, unspecified PC) duration Urea nitrogen 16 mg/dL Normal (applies [facility] (St [Mass/volume] in to non-numeric [facility] Serum or Plasma results) Medical, PC) Creatinine 0.81 Normal (applies [facility] (St [Interpretation] in mg/dL to non-numeric [facility] Urine results) Medical, PC) eGFR If NonAfricn 75 Normal (applies MED[facility] (St Am mL/min/1 to non-numeric [facility] .73 results) Medical, PC) eGFR If Africn Am 86 Normal (applies [facility] (St mL/min/1 to non-numeric [facility] .73 results) Medical, PC) BUN/Creatinine 20 Normal (applies [facility] (S t Ratio to non-numeric [facility] results) Medical, PC) Sodium 140 Normal (applies [facility] (St [Moles/volume] in mmol/L to non-numeric [facility] Serum or Plasma results) Medical, PC) Chloride 103 Normal (applies [facility] (St [Moles/volume] in mmol/L to non-numeric [facility] Serum or Plasma results) Medical, PC) Potassium 4.4 Normal (applies [facility] (St [Mass/volume] in mmol/L to non-numeric [facility] Blood results) Medical, PC) Carbon dioxide, 22 Normal (applies [facility] ( St total mmol/L to non-numeric [facility] [Moles/volume] in results) Medical, Serum or Plasma PC) Calcium 9.6 Normal (applies [facility] (St [Moles/volume] in mg/dL to non-numeric [facility] Urine collected for results) Medical, unspecified PC) duration Protein 6.8 g/dL Normal (applies [facility] (St [Mass/volume] in to non-numeric [facility] Serum or Plasma results) Medical, ) Microalbumin 4.1 g/dL Normal (applies [facility] (St [Mass/time] in to non-numeric [facility] Urine collected for results) Medical, unspecified PC) duration A/G Ratio 1.5 Normal (applies [facility] (St to non-numeric [facility] results) Medical, ) Globulin, Total 2.7 g/dL Normal (applies [facility] ( St to non-numeric [facility] results) Medical, ) Bilirubin.total 0.2 Normal (applies [facility] ( St [Mass/volume] in mg/dL to non-numeric [facility] Serum or Plasma results) Medical, ) Alkaline 72 IU/L Normal (applies [facility] (St phosphatase to non-numeric [facility] [Enzymatic results) Medical, activity/volume] in PC) Serum, Plasma or Blood Aspartate 21 IU/L Normal (applies [facility] (St aminotransferase to non-numeric [facility] [Enzymatic results) Medical, activity/volume] in PC) Serum or Plasma Alanine 20 IU/L Normal (applies [facility] (St aminotransferase to non-numeric [facility] [Enzymatic results) Medical, activity/volume] in PC) Serum or Plasma ID Date Data Source [id number] 10/12/2018 12:00:00 AM EST [facility] ([facility], ) Name Value Range Interpretation Description Data Sup porting Code Source(s) Document(s ) Glucose 124 mg/dL Above high normal [facility] (St [Mass/volume] [facility] in Urine Medical, ) collected for unspecified duration Urea nitrogen 14 mg/dL Normal (applies [facility] (St [Mass/volume] to non-numeric [facility] in Serum or results) Medical, ) Plasma Creatinine 0.85 Normal (applies [facility] (St [Interpretation mg/dL to non-numeric [facility] ] in Urine results) Medical, ) eGFR If 71 Normal (applies [facility] (St NonAfricn Am mL/min/1. to non-numeric [facility] 73 results) Medical, ) BUN/Creatinine 16 Normal (applies [facility] (S t Ratio to non-numeric [facility] results) Medical, ) eGFR If Africn 81 Normal (applies [facility] (S t Am mL/min/1. to non-numeric [facility] 73 results) Medical, ) Potassium 4.6 Normal (applies [facility] (St [Mass/volume] mmol/L to non-numeric [facility] in Blood results) Medical, ) Sodium 141 Normal (applies [facility] (St [Moles/volume] mmol/L to non-numeric [facility] in Serum or results) Medical, ) Plasma Chloride 102 Normal (applies [facility] (St [Moles/volume] mmol/L to non-numeric [facility] in Serum or results) Medical, ) Plasma Carbon dioxide, 27 mmol/L Normal (applies [facility] ( St total to non-numeric [facility] [Moles/volume] results) Medical, ) in Serum or Plasma Calcium 10.2 Normal (applies [facility] (St [Moles/volume] mg/dL to non-numeric [facility] in Urine results) Medical, ) collected for unspecified duration ID Date Data Source [id number] 10/12/2018 12:00:00 AM EST [facility] ([facility], ) Name Value Range Interpretation Description Data Sup porting Code Source(s) Document(s ) Leukocytes 11.3 Above high normal [facility] (St [#/volume] in x10E3/uL [facility] Blood by Medical, ) Automated count Erythrocytes 3.93 Normal (applies [facility] (St [#/volume] in x10E6/uL to non-numeric [facility] Blood by results) Medical, ) Automated count Hemoglobin 12.2 Normal (applies [facility] (St [Mass/volume] in g/dL to non-numeric [facility] Blood results) [facility], ) Hematocrit 36.9 % Normal (applies MED[facility] (St [Volume to non-numeric [facility] Fraction] of results) Medical, ) Blood by Automated count MCV 94 fL Normal (applies [facility] (St to non-numeric [facility] results) Medical, ) MCH 31.0 pg Normal (applies [facility] (St to non-numeric [facility] results) Medical, ) RDW 13.3 % Normal (applies [facility] (St to non-numeric [facility] results) Medical, ) MCHC 33.1 Normal (applies [facility] (St g/dL to non-numeric [facility] results) Medical, ) Neutrophils [#] 85 % Normal (applies [facility] ( St in Body fluid by to non-numeric [facility] Manual count results) Medical, ) Platelets 307 Normal (applies [facility] (St [#/area] in x10E3/uL to non-numeric [facility] Blood by results) Medical, ) Microscopy high power field Monocytes 6 % Normal (applies [facility] (St [#/volume] in to non-numeric [facility] Cord blood results) Medical, ) Lymphs 9 % Normal (applies [facility] (St to non-numeric [facility] results) Medical, ) Eos 0 % Normal (applies [facility] (St to non-numeric [facility] results) Medical, ) Basos 0 % Normal (applies MED[facility] (St to non-numeric [facility] results) Medical, ) Neutrophils 9.5 Above high normal [facility] (St (Absolute) x10E3/uL [facility], ) Lymphs 1.0 Normal (applies MED[facility] (St (Absolute) x10E3/uL to non-numeric [facility] results) Medical, ) Eos (Absolute) 0.0 Normal (applies MED[facility] (S t x10E3/uL to non-numeric [facility] results) Medical, ) Monocytes(Absolu 0.7 Normal (applies MED[facility] (St te) x10E3/uL to non-numeric [facility] results) Medical, ) Baso (Absolute) 0.1 Normal (applies [facility] ( St x10E3/uL to non-numeric [facility] results) Medical, ) Immature 0 % Normal (applies [facility] (St Granulocytes to non-numeric [facility] results) Medical, ) Immature Grans 0.0 Normal (applies [facility] (S t (Abs) x10E3/uL to non-numeric [facility] results) Medical, ) Procedure Social History Code Duration Value Status Description Data Source(s ) Smoking 06/05/2020 [place] [facility] (St 12:00:00 AM EDT 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 1 PPD for 23 1986. 1 PPD for 2 3 years. Occasional years. Occasiona l alcohol alcohol Smoking 06/05/2020 Unknown if ever completed Unknown if ever MEDG EN (St 12:00:00 AM EDT smoked smoked [facility] [place] [place] ) Vital Signs ID Date Data Source UNK Name Value Range Interpretation Code Description Data Source(s) Heart rate 76 /min 76 /min [facility] ([facility]) Body mass index 23.2 kg/m2 23.2 kg/m2 MED[facility] (S t (BMI) [Ratio] [facility]) Diastolic blood 102 mm[Hg] 102 mm[Hg] MED[facility] (S t pressure [facility]) Systolic blood 174 mm[Hg] 174 mm[Hg] [facility] ([facility]) Body weight 117 lb 117 lb [facility] ([facility]) Body height 59.5 in 59.5 in [facility] ([facility]) Heart rate 84 /min 84 /min [facility] ([facility]) Inhaled oxygen 98 % 98 % [facility] ([facility]) Body mass index 23.2 kg/m2 23.2 kg/m2 MED[facility] (S t (BMI) [Ratio] [facility]) Diastolic blood 82 mm[Hg] 82 mm[Hg] MED[facility] (S t pressure [facility]) Systolic blood 122 mm[Hg] 122 mm[Hg] [facility] ([facility]) Body weight 117 lb 117 lb [facility] ([facility]) Body height 59.5 in 59.5 in [facility] ([facility]) Heart rate 87 /min 87 /min [facility] ([facility]) Inhaled oxygen 97 % 97 % [facility] ([facility]) Body mass index 23 kg/m2 23 kg/m2 MED[facility] (S t (BMI) [Ratio] [facility]) Diastolic blood 74 mm[Hg] 74 mm[Hg] MED[facility] (S t pressure [facility]) Systolic blood 118 mm[Hg] 118 mm[Hg] [facility] ([facility] [place] , ) Body weight 116 lb 116 lb [facility] ([facility] [place] , ) Body height 59.5 in 59.5 in [facility] ([facility] , )
[2020-06-25 11:40] VITALS: TEMP 97.5
[2020-06-25 12:17] VITALS: BP 168/82; PULSE 62
[2020-06-25 13:19] LABS: BLOOD UREA NITROGEN 14.8 mg/dL (7-18); CALCIUM 8.9 mg/dL (8.5-10.1); CREATININE 0.7 mg/dL (0.55-1.3); POTASSIUM 3.9 mmol/L (3.5-5.1)
--- NOTE | 2020-06-26 18:54 | PATH ---
Surgical Pathology Report Patient Name: KJ CABRERA [facility]. Rec. #: [id number] /Age/Gender: 1950 (Age: 70) / F Account: [id number] Location: ASU-ENDOSCOPY Taken: 06/25/2020 Received: 06/25/2020 Reported: 06/26/2020 Physicians: Juan Iqbal D.O. Specimen(s) Received A: PROXIMAL TRANSVERSE COLON POLYP B: DISTAL TRANSVERSE COLON POLYP C: RECTAL POLYP Clinical History History of colon polyps Postoperative diagnosis: Colon polyps Final Diagnosis A. PROXIMAL TRANSVERSE COLON, POLYP, BIOPSY: TUBULAR ADENOMA. B. DISTAL TRANSVERSE COLON, POLYP, BIOPSY: TUBULAR ADENOMA. C. RECTAL POLYP, BIOPSY: HYPERPLASTIC POLYP. Electronically Signed Apurva Benz M.D. Gross Description A. Received in formalin, labeled "proximal transverse lung polyp biopsy" is a anna, irregular portion of soft tissue measuring 0.3 cm. in greatest dimension. The specimen is submitted in toto in one cassette. B. Received in formalin, labeled "distal transverse colon polyp biopsy" is a anna, irregular portion of soft tissue measuring 0.3 cm. in greatest dimension. The specimen is submitted in toto in one cassette. C. Received in formalin, labeled "rectal polyp biopsy" is a anna, irregular portion of soft tissue measuring 0.2 cm. in greatest dimension. The specimen is submitted in toto in one cassette. DL/06/25/2020 saudi/06/25/2020
== END 2020-06-25 12:26 | disposition home or self-care (01) ==
LOC: JASU-ENDO 04:58
PROVIDERS: ATTEND Internal Medicine Gastroenterology
PROC: 0DBL8ZX Excision of Transverse Colon, Via Natural or Artificial Opening Endoscopic, Diagnostic (ICD-10-PCS; 2020-06-25)
PROC: 0DBP8ZX Excision of Rectum, Via Natural or Artificial Opening Endoscopic, Diagnostic (ICD-10-PCS; principal; 2020-06-25 11:00)
DX: Z86.010 Personal history of colon polyps (principal); D12.3 Benign neoplasm of transverse colon; K62.1 Rectal polyp; I10 Essential (primary) hypertension; E03.9 Hypothyroidism, unspecified; K64.8 Other hemorrhoids; Q43.8 Other specified congenital malformations of intestine
CPT/HCPCS: 36415; 80048; 88305-TC

== ENCOUNTER 2022-04-08 03:07 | Emergency (ER) | payer OTHER ==
[2022-04-08 03:48] VITALS: BP 161/83; PULSE 87; TEMP 98.4; BMI 22.6
[2022-04-08] MEDS ORDERED: LIDOCAINE 5% TOPICAL PATCH TP ONE (04:13)
[2022-04-08] MEDS ORDERED: LIDOCAINE 5% TOPICAL PATCH ONE (04:17)
[2022-04-08] MEDS ORDERED: ONDANSETRON *ODT* 4 MG TABLET SL ONE (05:42)
[2022-04-08] MEDS ORDERED: ONDANSETRON *ODT* 4 MG TABLET ONE (05:44)
[2022-04-08] MEDS ORDERED: LIDOCAINE PATCH REMOVAL MC ONE (17:00)
== END 2022-04-08 06:25 | disposition home or self-care (01) ==
LOC: JER 03:07
DX: M54.50 Low back pain, unspecified (principal)
CPT/HCPCS: 72131-TC; 74176-TC; 99284-25; Q0162

== ENCOUNTER 2022-04-21 10:08 | Emergency (ER) | payer OTHER ==
[2022-04-21 10:51] VITALS: BP 188/95; PULSE 94; RESP 16; TEMP 97.8; BMI 23.8
[2022-04-21] MEDS ORDERED: CYCLOBENZAPRINE HCL 10 MG TABLET (FP) PO ONE (11:37)
[2022-04-21] MEDS ORDERED: KETOROLAC TROMETHAMINE 30 MG/1 ML VIAL IM ONE (11:37)
[2022-04-21] MEDS ORDERED: LIDOCAINE 5% TOPICAL PATCH TP ONE (11:37)
[2022-04-21] MEDS ORDERED: KETOROLAC TROMETHAMINE 30 MG/1 ML VIAL ONE (12:01)
[2022-04-21] MEDS ORDERED: CYCLOBENZAPRINE HCL 10 MG TABLET (FP) ONE (12:01)
[2022-04-21] MEDS ORDERED: LIDOCAINE 5% TOPICAL PATCH ONE (12:01)
[2022-04-21] MEDS ORDERED: LIDOCAINE PATCH REMOVAL MC ONE (22:00)
== END 2022-04-21 13:58 | disposition home or self-care (01) ==
LOC: JER 10:08
PROC: 3E0233Z Introduction of Anti-inflammatory into Muscle, Percutaneous Approach (ICD-10-PCS; principal; 2022-04-21)
DX: M54.31 Sciatica, right side (principal)
CPT/HCPCS: 99284-25

== ENCOUNTER 2022-05-15 04:10 | Day surgery (SDC) | payer OTHER ==
[2022-05-13 09:48] VITALS: BMI 23.4
[2022-05-15] MEDS ORDERED: LIDOCAINE HCL/PF 1% SDV 5ML VIAL ONE (07:16)
[2022-05-15] MEDS ORDERED: DEXAMETHASONE SOD PHOSPHATE 10 MG/1 ML VIAL ONE (07:16)
[2022-05-15 07:25] VITALS: RESP 18; TEMP 97.8
[2022-05-15 07:41] VITALS: PULSE 77
[2022-05-15 08:34] VITALS: BP 208/94
== END 2022-05-15 09:40 | disposition home or self-care (01) ==
LOC: JASU-SURG 04:10
PROVIDERS: ATTEND Pain Medicine Pain Medicine
DX: Z53.8 Procedure and treatment not carried out for other reasons (principal)
CPT/HCPCS: J1100

== ENCOUNTER 2022-05-15 09:35 | Emergency (ER) | payer OTHER ==
[2022-05-15 09:43] VITALS: BP 176/85; PULSE 90; RESP 18; TEMP 98; BMI 23.4
[2022-05-15] MEDS ORDERED: amLODIPine BESYLATE 5 MG TABLET (FP) PO ONE (11:00)
[2022-05-15] MEDS ORDERED: METHOCARBAMOL 500 MG TABLET PO ONE (11:00)
[2022-05-15] MEDS ORDERED: METHOCARBAMOL 500 MG TABLET ONE (11:04)
[2022-05-15] MEDS ORDERED: amLODIPine BESYLATE 5 MG TABLET (FP) ONE (11:05)
== END 2022-05-15 12:10 | disposition home or self-care (01) ==
LOC: JER 09:35
DX: I10 Essential (primary) hypertension (principal)
CPT/HCPCS: 99283-25

== ENCOUNTER 2022-05-19 04:39 | Day surgery (SDC) | payer OTHER ==
[2022-05-15 16:28] VITALS: BMI 23.4
[2022-05-19] MEDS ORDERED: DEXAMETHASONE SOD PHOSPHATE 10 MG/1 ML VIAL ONE (07:14)
[2022-05-19] MEDS ORDERED: LIDOCAINE HCL/PF 1% SDV 5ML VIAL ONE (07:14)
[2022-05-19] MEDS ORDERED: IOHEXOL 180 MG/1 ML ML IJ ONE (08:29)
[2022-05-19] MEDS ORDERED: DEXAMETHASONE SOD PHOSPHATE 10 MG/1 ML VIAL IVPUSH ONE (08:30)
[2022-05-19] MEDS ORDERED: LIDOCAINE 1% P/F 10 MG/ML VIAL INF ONE ×3 (08:32)
[2022-05-19 09:14] VITALS: BP 141/84; PULSE 78; RESP 16; TEMP 98.4
== END 2022-05-19 10:05 | disposition home or self-care (01) ==
LOC: JASU-SURG 04:39
PROVIDERS: ATTEND Pain Medicine Pain Medicine
PROC: 3E0R33Z Introduction of Anti-inflammatory into Spinal Canal, Percutaneous Approach (ICD-10-PCS; 2022-05-19)
PROC: 3E0R3BZ Introduction of Anesthetic Agent into Spinal Canal, Percutaneous Approach (ICD-10-PCS; principal; 2022-05-19 08:00)
DX: M54.16 Radiculopathy, lumbar region (principal)
CPT/HCPCS: 76000-TC-FY; J1100

== ENCOUNTER 2022-06-30 04:43 | Day surgery (SDC) | payer OTHER ==
[2022-06-26 19:19] VITALS: BMI 23.4
[2022-06-30] MEDS ORDERED: LIDOCAINE HCL/PF 1% SDV 5ML VIAL ONE (07:34)
[2022-06-30] MEDS ORDERED: DEXAMETHASONE SOD PHOSPHATE 10 MG/1 ML VIAL ONE (07:34)
[2022-06-30] MEDS ORDERED: DEXAMETHASONE SOD PHOSPHATE 10 MG/1 ML VIAL IVPUSH ONE ×2 (09:38)
[2022-06-30] MEDS ORDERED: LIDOCAINE HCL 1%, 10 MG/ML (50 mL VIAL) NR ONE (09:38)
[2022-06-30] MEDS ORDERED: IOHEXOL 180 MG/1 ML ML IJ ONE (09:39)
[2022-06-30 10:14] VITALS: BP 172/82; PULSE 70; RESP 18; TEMP 98.8
== END 2022-06-30 10:35 | disposition home or self-care (01) ==
LOC: JASU-SURG 04:43
PROVIDERS: ATTEND Pain Medicine Pain Medicine
PROC: 3E0R33Z Introduction of Anti-inflammatory into Spinal Canal, Percutaneous Approach (ICD-10-PCS; 2022-06-30)
PROC: 3E0R3BZ Introduction of Anesthetic Agent into Spinal Canal, Percutaneous Approach (ICD-10-PCS; principal; 2022-06-30 10:00)
DX: M54.16 Radiculopathy, lumbar region (principal)
CPT/HCPCS: 76000-TC-FY; J1100

== ENCOUNTER 2022-12-08 12:06 | Emergency (ER) | payer OTHER ==
[2022-12-08 12:18] VITALS: PULSE 79; RESP 19; TEMP 97.9; BMI 23.6
[2022-12-08] MEDS ORDERED: amLODIPine BESYLATE 5 MG TABLET (FP) PO ONE ×2 (13:19→15:18)
[2022-12-08] MEDS ORDERED: amLODIPine BESYLATE 5 MG TABLET (FP) ONE ×2 (13:25→15:23)
[2022-12-08 13:34] VITALS: BP 186/79
[2022-12-08 13:47] LABS: BASO % 0.6 % (0-2.0); EOS % 0.8 % (0-4.5); HEMATOCRIT 36.8 % (32.4-45.2); HEMOGLOBIN 11.9 GM/dL (10.7-15.3); LYMPH % 19.8 % (8-40); MCH 28.2 pg (25.7-33.7); MCHC 32.3 g/dl (32.0-36.0); MEAN CELL VOLUME 87.4 fl (80-96); MEAN PLT VOLUME 8.7 fl (7.5-11.1); MONO % 6.6 % (3.8-10.2); NEUT % 72.2 % (42.8-82.8); PLATELET COUNT 226 10^3/uL (134-434); RBC 4.21 M/mm3 (3.60-5.2); WHITE BLOOD COUNT 11.1 K/mm3 (4.0-10.0)
[2022-12-08 13:57] LABS: BLOOD UREA NITROGEN 18.4 mg/dL (7-18); CALCIUM 9.2 mg/dL (8.5-10.1)
[2022-12-08 14:00] LABS: CREATININE 0.8 mg/dL (0.55-1.3)
[2022-12-08 14:02] LABS: BILIRUBIN,TOTAL 0.2 mg/dL (0.2-1); TOT PROT 6.4 g/dl (6.4-8.2)
[2022-12-08] MEDS ORDERED: METOPROLOL TARTRATE 50 MG TABLET (FP) PO ONE (15:18)
[2022-12-08] MEDS ORDERED: METOPROLOL TARTRATE 50 MG TABLET (FP) ONE (15:23)
== END 2022-12-08 15:32 | disposition home or self-care (01) ==
LOC: JER 12:06
DX: I10 Essential (primary) hypertension (principal)
CPT/HCPCS: 36415; 70450-TC; 80053; 85025; 93005; 93010; 99285-25

== ENCOUNTER 2023-02-18 04:12 | Day surgery (SDC) | payer OTHER ==
[2023-02-16 15:20] VITALS: BMI 23.2
[2023-02-18 11:32] VITALS: TEMP 98.6
[2023-02-18 11:55] VITALS: BP 130/56; PULSE 68; RESP 15
== END 2023-02-18 12:02 | disposition home or self-care (01) ==
LOC: JASU-ENDO 04:12
PROVIDERS: ATTEND Internal Medicine Gastroenterology
PROC: 0DB78ZX Excision of Stomach, Pylorus, Via Natural or Artificial Opening Endoscopic, Diagnostic (ICD-10-PCS; 2023-02-18)
PROC: 0DB68ZX Excision of Stomach, Via Natural or Artificial Opening Endoscopic, Diagnostic (ICD-10-PCS; principal; 2023-02-18 10:00)
DX: K29.50 Unspecified chronic gastritis without bleeding (principal); K44.9 Diaphragmatic hernia without obstruction or gangrene; D13.1 Benign neoplasm of stomach; K31.89 Other diseases of stomach and duodenum
CPT/HCPCS: 88305-TC; 88342-TC

== ENCOUNTER 2024-01-18 04:15 | Day surgery (SDC) | payer OTHER ==
[2024-01-12 11:57] VITALS: BMI 20.4
[2024-01-18] MEDS ORDERED: ONDANSETRON 4 MG/2 ML VIAL IVPUSH PRN ×2 (11:33→12:00)
[2024-01-18] MEDS ORDERED: oxyCODONE HCL 5 MG TABLET PO PRN ×2 (11:33→12:00)
[2024-01-18] MEDS ORDERED: MIDAZOLAM HCL 2 MG/2 ML SINGLE DOSE VIAL ONE (11:57)
[2024-01-18] MEDS ORDERED: FENTANYL CITRATE/PF 50 MCG/ML VIAL ONE ×4 (11:57→14:01)
[2024-01-18] MEDS ORDERED: ONDANSETRON 4 MG/2 ML VIAL ONE ×2 (11:59→12:35)
[2024-01-18] MEDS ORDERED: DEXAMETHASONE SOD PHOSPHATE 4 MG/1 ML VIAL ONE ×2 (11:59→12:35)
[2024-01-18] MEDS ORDERED: LIDOCAINE HCL/PF 2% SDV 5ML VIAL ONE (11:59)
[2024-01-18] MEDS ORDERED: PROPOFOL 40 ML ONE (11:59)
[2024-01-18] MEDS ORDERED: IBUPROFEN 600 MG TABLET (FP) PO PRN (12:00)
[2024-01-18] MEDS ORDERED: ELECTROLYTE-148 SOLN 1,000 ML IV SCH (12:00)
[2024-01-18] MEDS ORDERED: IBUPROFEN 800 MG/8 ML IJ IVPB ONE (14:24)
[2024-01-18] MEDS: IBUPROFEN 800 MG/8 ML IJ IVPB PRN (14:27)
[2024-01-18] MEDS: LACTATED RINGERS SOLUTION 1,000 ML IV SCH (15:25)
[2024-01-18 16:24] VITALS: RESP 16
[2024-01-18 17:35] VITALS: BP 130/65; PULSE 80; TEMP 97.6
== END 2024-01-18 17:15 | disposition home or self-care (01) ==
LOC: JASU-SURG 04:15
PROVIDERS: ATTEND Obstetrics & Gynecology
PROC: 0UB98ZZ Excision of Uterus, Via Natural or Artificial Opening Endoscopic (ICD-10-PCS; 2024-01-18)
PROC: 0UBC8ZZ Excision of Cervix, Via Natural or Artificial Opening Endoscopic (ICD-10-PCS; principal; 2024-01-18 11:30)
DX: D25.0 Submucous leiomyoma of uterus (principal); N84.1 Polyp of cervix uteri
CPT/HCPCS: 87086; 88305-TC; 94760